=== PATIENT | male | born 1955 | race Caucasian/White ===

== ENCOUNTER 2019-06-07 17:50 | Inpatient (IN) | payer MEDICARE, OTHER ==
[~2019-06-07] VITALS: Ht 182.9 cm; Wt 75.9 kg
[~2019-06-07 17:50] MED LIST: AMLODIPINE BESYL5 MG ORAL; ASPIRIN EC325 MG ORAL; ASPIRIN81 MG ORAL; CLOZAPINE50 MG PO; DEPAKOTE ER500 MG ORAL; DITROPAN10 MG ORAL; DIVALPROEX SOD500 M2 PO; DOCUSATE SODIU100 MG ORAL; DUONEB 0.5-3(2.53 ML HHN; FAMOTIDINE20 MG ORAL; HALDOL INJECT5 MG/ML IM; HEPARIN SO5000 UNIT2 SUBQ; LOPID600 MG ORAL; METOPROLOL SUCC50 MG ORAL; OMEPRAZOLE20 M2 ORAL; POTASSIUM CHLO20 ME1 ORAL; POTASSIUM CHLO20 ME2 ORAL; SIMVASTATIN20 MG ORAL; TAMSULOSIN HCL0.4 MG ORAL; TENORMIN25 MG ORAL
[2019-06-07 17:55] VITALS: BP 96/51
--- NOTE | 2019-06-07 17:55 | NUR ---
ED Nurse Note: Patient arrived by EMS from [facility] complaining of shortness of breath. Per EMS, patient is a chainsmoker and smoked 5 cigarettes today before complaining of shortness of breath. Nursing staff called 911. Upon arrival to ED, patient HR was in the 170s-180s. Patient converted to Sinus rhythm and HR is now stable between 100 and 110. SBP was mid 80's, fluid bolus given per ERMD. SBP now in mid 90's. Patient currently on 3 L NC, no complaints of shortness of breath. Patient resting comfortably.
[2019-06-07] MEDS ORDERED: Adenosine 6mg/2ml Inj ONE (18:00)
[2019-06-07] MEDS ORDERED: Isovue-370 150ml vial INJ PRN (18:15)
[2019-06-07 18:25] LABS: HEMATOCRIT 34.3 % (42.0-52.0); HEMOGLOBIN 11.9 G/DL (14.2-18.0); MEAN CORPUSCULAR VOLUME 91 FL (80-99); PLATELET COUNT 199 K/UL (150-450); RED BLOOD COUNT 3.77 M/UL (4.70-6.10); RED CELL DISTRIBUTION WIDTH 13.8 % (11.6-14.8)
[2019-06-07] MEDS: Levalbuterol Inh UD 1.25mg/0.5ml HHN SCH ×4 (18:35→18:51)
[2019-06-07] MEDS: Ipratropium 0.02% Inh Soln 2.5ml UD HHN SCH ×3 (18:35→18:48)
--- NOTE | 2019-06-07 18:40 | NUR ---
ED Nurse Note: Patient getting breathing treatment. Patient resting comfortably, no s/s of distress.
[2019-06-07 18:41] LABS: ANION GAP 8 mmol/L (5-15); BLOOD UREA NITROGEN 16 mg/dL (7-18); CALCIUM 8.9 MG/DL (8.5-10.1); CARBON DIOXIDE 25 MMOL/L (21-32); CHLORIDE 99 MMOL/L (98-107); CREATININE 1.8 MG/DL (0.55-1.30); POTASSIUM 4.5 MMOL/L (3.5-5.1); SODIUM 132 MMOL/L (136-145)
[2019-06-07 18:45] VITALS: BP 96/51
--- NOTE | 2019-06-07 18:48 | NUR ---
MARAL JANSEN (BROTHER) [phone]
[2019-06-07 18:52] LABS: ALANINE AMINOTRANSFERASE 8 U/L (12-78); ALBUMIN 2.1 G/DL (3.4-5.0); ALBUMIN/GLOBULIN RATIO 0.4 (1.0-2.7); ALKALINE PHOSPHATASE 93 U/L (46-116); ASPARTATE AMINO TRANSFERASE 11 U/L (15-37); BILIRUBIN,TOTAL 0.4 MG/DL (0.2-1.0)
[2019-06-07] MEDS ORDERED: Solu-MEDROL 125mg Inj IVP ONE (19:00)
[2019-06-07 19:05] VITALS: BP 93/52
--- NOTE | 2019-06-07 19:08 | NUR ---
ED Nurse Note: pt refused swab for CRE/VRE.
--- NOTE | 2019-06-07 19:10 | NUR ---
ED Nurse Note: spoke with RT and ERMD, additional order of breathing treatment will not be administered due to resolution of tachypnea and o2 sat level
--- NOTE | 2019-06-07 19:19 | NUR ---
HAND-OFF: Report given to Remedios. Endorced pending antibiotic and urine collection.
--- NOTE | 2019-06-07 19:20 | NUR ---
ED Nurse Note: pt sent to CT
--- NOTE | 2019-06-07 19:40 | NUR ---
ED Nurse Note: PT RETURNED FROM CT
[2019-06-07] MEDS ORDERED: Solu-MEDROL 125mg Inj ONE (19:43)
[2019-06-07 21:00] VITALS: BP 105/44
--- NOTE | 2019-06-07 21:00 | NUR ---
ED Nurse Note: pt completed medications and tolerated well. pt is currently in bed resting. no acute signs of distress noted. iv lines intact and patent.
--- NOTE | 2019-06-07 21:05 | NUR ---
ED Nurse Note: assisted pt to stand to utitlize urinal bottle. urine specimen collected and sent to lab.
--- NOTE | 2019-06-07 21:11 | Diagnostic Imaging Report ---
Indication: Chest and abdominal pain shortness of breath Technique: Continuous helical transaxial imaging of the chest, abdomen and pelvis was obtained from the thoracic inlet to the pubic symphysis. No IV contrast was administered. Coronal 2-D reformats were also obtained. Study obtained in a Siemens sensation [address] Total Dose length Product (DLP): [address] Dose Index Volume (CTDIvol): 14.6 mGy Comparison: None Findings: There is a focus of the airspace opacification in the left upper lobe probably due to pneumonia. There is moderate to severe chronic lung fibrosis with areas of honeycombing and reticular fibrosis involving the interlobular and and intralobular septa primarily at the periphery of the upper lobes and lower lobes bilaterally. There is evidence of traction bronchiectasis. Emphysema noted in the upper lobes with areas of ill-defined hyperlucency. No large bulla identified. There is no adenopathy. There is a minimal calcification of the aorta. No pleural or pericardial effusion identified. Evaluation of solid organs is limited on noncontrast imaging. There is a 4.2 cm fusiform aneurysm of the lower abdominal aorta demonstrated. The appendix is normal. There is no free fluid. There is a small left inguinal hernia containing fat. Gallbladder is unremarkable. There is moderate stool in the colon. Urinary bladder is unremarkable. Vacuum phenomena narrowing of the L5-S1 disc demonstrated. IMPRESSION: Airspace/consolidative opacity in the left upper lobe consistent with left upper lobe pneumonia. Extensive chronic lung disease characterized by pulmonary fibrosis and honeycombing as well as upper lobe emphysema. 4.2 cm fusiform aneurysm of the abdominal aorta. Moderate fecal retention. Normal appendix Hiatal hernia Small left inguinal hernia containing fat The CT scanner at [facility] is accredited by the [employer] and the scans are performed using dose optimization techniques as appropriate to a performed exam including Automatic Exposure control.
[2019-06-07 21:26] LABS: APPEARANCE,URINE CLEAR; BILIRUBIN, URINE NEGATIVE (NEGATIVE); COLOR,URINE PALE YELLOW; GLUCOSE, URINE (UA) NEGATIVE (NEGATIVE); KETONES,URINE NEGATIVE (NEGATIVE); LEUKOCYTE ESTERASE ,URINE NEGATIVE (NEGATIVE); NITRITE,URINE NEGATIVE (NEGATIVE); PH,URINE 7 (4.5-8.0); PROTEIN,URINE 2+ (NEGATIVE); UROBILINOGEN,URINE NORMAL MG/DL (0.0-1.0)
--- NOTE | 2019-06-07 22:18 | Emergency Room Report ---
History of Present Illness General Chief Complaint: Dyspnea/Respdistress Source: Patient, EMS Present Illness HPI 64-year-old male presents ED for evaluation. Brought in by EMS from [facility]. For shortness of breath which started today. History of COPD. On oxygen. Denies chest pain. Denies fevers or chills. Denies cough. No other aggravating relieving factors. 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 Hx Neurological Problems: No Hx Seizures: Yes Review of Systems All Other Systems: negative except mentioned in HPI Physical Exam Vital Signs Date Time Temp Pulse Resp B/P (MAP) Pulse Ox O2 Delivery O2 Flow Rate FiO2 06/07/19 17:49 106 30 86/53 (64) 100 Nasal Cannula 3.0 06/07/19 17:55 98.1 06/07/19 18:38 28 Sp02 EP Interpretation: reviewed, normal General Appearance: no apparent distress, alert, GCS 15, non-toxic, thin Head: normocephalic, atraumatic Eyes: bilateral eye normal inspection, bilateral eye PERRL ENT: hearing grossly normal, normal pharynx, no angioedema, normal voice Neck: full range of motion, supple/symm/no masses Respiratory: chest non-tender, crackles, speaking full sentences, wheezing Cardiovascular #1: regular rate, rhythm, no edema Cardiovascular #2: 2+ carotid (R), 2+ carotid (L), 2+ radial (R), 2+ radial (L) , 2+ dorsalis pedis (R), 2+ dorsalis pedis (L) Gastrointestinal: normal bowel sounds, non tender, soft, non-distended, no guarding, no rebound Rectal: deferred Genitourinary: normal inspection, no CVA tenderness Musculoskeletal: back normal, gait/station normal, normal range of motion, non- tender Neurologic: alert, oriented x3, responsive, motor strength/tone normal, sensory intact, speech normal Psychiatric: judgement/insight normal, memory normal, mood/affect normal, no suicidal/homicidal ideation Reflexes: 3+ bicep (R), 3+ bicep (L), 3+ tricep (R), 3+ tricep (L), 3+ knee (R) , 3+ knee (L) Skin: other - see nursing skin notes Lymphatic: no adenopathy Medical Decision Making Diagnostic Impression: Primary Impression: COPD (chronic obstructive pulmonary disease) Qualified Codes: J44.9 - Chronic obstructive pulmonary disease, unspecified Additional Impressions: SOB (shortness of breath) Renal insufficiency ER Course Hospital Course 64 yo M presents to ED c/o SOB. h/o COPD Differential diagnoses include: Pneumonia, CHF exacerbation, pneumothorax, fluid overload Clinical course Patient placed on stretcher. On manager monitoring with tachycardia. After initial history and physical, I ordered nebulizer treatments. I ordered labs, IV fluids, EKG, chest x-ray, blood cultures, UA. Labs - noted leukocytosis, hemoglobin/hematocrit stable, Cr 1.8, lactate okay, troponins negative ABG - no acidosis, no hypercapnia or hypoxia CXR - hyperinflated lungs. interstitial changes and L >> R infiltrate CT chest/abd/pelvis- shows previously noted aortic aneurysm. L >> R infiltrates increased from prior study given abx. given IVFs. Case discussed with Dr. Rangel and he agreed to the patient to his service for further care and support I feel this is a highly complex case requiring extensive working including EKG/ Rhythm strip, Xray/CT/US, Blood/urine lab work, repeat exams while in ED, and administration of strong opiates/narcotics for pain control, admission to hospital or close patient follow up. Diagnosis - COPD exacerbation, SOB, renal insufficiency Patient admitted to telemetry in serious condition Labs Test 06/07/19 17:55 06/07/19 18:03 06/07/19 18:10 06/07/19 21:08 White Blood Count 20.0 K/UL (4.8-10.8) Red Blood Count 3.77 M/UL (4.70-6.10) Hemoglobin 11.9 G/DL (14.2-18.0) Hematocrit 34.3 % (42.0-52.0) Mean Corpuscular Volume 91 FL (80-99) Mean Corpuscular Hemoglobin 31.6 PG (27.0-31.0) Mean Corpuscular Hemoglobin Concent 34.8 G/DL (32.0-36.0) Red Cell Distribution Width 13.8 % (11.6-14.8) Platelet Count 199 K/UL (150-450) Mean Platelet Volume 6.3 FL (6.5-10.1) Neutrophils (%) (Auto) % (45.0-75.0) Lymphocytes (%) (Auto) % (20.0-45.0) Monocytes (%) (Auto) % (1.0-10.0) Eosinophils (%) (Auto) % (0.0-3.0) Basophils (%) (Auto) % (0.0-2.0) Differential Total Cells Counted 100 Neutrophils % (Manual) 71 % (45-75) Lymphocytes % (Manual) 3 % (20-45) Monocytes % (Manual) 8 % (1-10) Eosinophils % (Manual) 0 % (0-3) Basophils % (Manual) 0 % (0-2) Band Neutrophils 18 % (0-8) Platelet Estimate Adequate Platelet Morphology Normal Red Blood Cell Morphology Normal Sodium Level 132 MMOL/L (136-145) Potassium Level 4.5 MMOL/L (3.5-5.1) Chloride Level 99 MMOL/L (98-107) Carbon Dioxide Level 25 MMOL/L (21-32) Anion Gap 8 mmol/L (5-15) Blood Urea Nitrogen 16 mg/dL (7-18) Creatinine 1.8 MG/DL (0.55-1.30) Estimat Glomerular Filtration Rate 38.1 mL/min (>60) Glucose Level 107 MG/DL (74-106) Calcium Level 8.9 MG/DL (8.5-10.1) Total Bilirubin 0.4 MG/DL (0.2-1.0) Aspartate Amino Transf (AST/SGOT) 11 U/L (15-37) Alanine Aminotransferase (ALT/SGPT) 8 U/L (12-78) Alkaline Phosphatase 93 U/L (46-116) Troponin I 0.000 ng/mL (0.000-0.056) Pro-B-Type Natriuretic Peptide 1062 pg/mL (0-125) Total Protein 7.6 G/DL (6.4-8.2) Albumin 2.1 G/DL (3.4-5.0) Globulin 5.5 g/dL Albumin/Globulin Ratio 0.4 (1.0-2.7) Arterial Blood pH 7.437 (7.350-7.450) Arterial Blood Partial Pressure CO2 27.8 mmHg (35.0-45.0) Arterial Blood Partial Pressure O2 82.6 mmHg (75.0-100.0) Arterial Blood HCO3 18.3 mmol/L (22.0-26.0) Arterial Blood Oxygen Saturation 96.0 % (95-100) Arterial Blood Base Excess -4.6 (-2-2) Vick Test Positive Lactic Acid Level 1.80 mmol/L (0.4-2.0) Urine Color Pale yellow Urine Appearance Clear Urine pH 7 (4.5-8.0) Urine Specific [place] 1.010 (1.005-1.035) Urine Protein 2+ (NEGATIVE) Urine Glucose (UA) Negative (NEGATIVE) Urine Ketones Negative (NEGATIVE) Urine Blood 3+ (NEGATIVE) Urine Nitrite Negative (NEGATIVE) Urine Bilirubin Negative (NEGATIVE) Urine Urobilinogen Normal MG/DL (0.0-1.0) Urine Leukocyte Esterase Negative (NEGATIVE) Urine RBC 2-4 /HPF (0 - 0) Urine WBC 0-2 /HPF (0 - 0) Urine Squamous Epithelial Cells None /LPF (NONE/OCC) Urine Bacteria None /HPF (NONE) EKG Diagnostic Results Rate: tachycardiac Rhythm: NSR ST Segments: no acute changes ASA given to the pt in ED: No Rhythm Strip Diag. Results EP Interpretation: yes Rhythm: NSR, no PVC's, no ectopy Chest X-Ray Diagnostic Results Chest X-Ray Diagnostic Results : Chest X-Ray Ordered: Yes # of Views/Limited/Complete: 1 View Indication: Shortness of Breath EP Interpretation: Yes Interpretation: no pneumothorax, other - consolidation on left, intersttial changes on right Impression: Other - COPD/PNA Electronically Signed by: Electronically signed by Dwight De Leon MD CT/MRI/US Diagnostic Results CT/MRI/US Diagnostic Results : Imaging Test Ordered: CT Chest/Abd/Pelvis Impression CT ABDOMEN & PELVIS Without Contrast: Evaluation is limited secondary to motion artifact. Infrarenal abdominal aortic aneurysm measuring 4.4 cm in maximum transverse dimensions. No definite CT evidence for surrounding hematoma to suggest aneurysm rupture. Small hiatal hernia. Evaluation of the stomach is limited secondary to poor distention. Some wall thickening of the stomach cannot be excluded. The intra-abdominal organs are otherwise grossly unremarkable for a noncontrast CT. The appendix is mildly prominent measuring up to [address] evidence for periappendiceal inflammatory changes. No evidence for bowel related inflammatory changes. No evidence for significant bowel loop dilation to suggest an obstructive process. Moderate to large amount of stool in the cecum, ascending, transverse, and descending colon. Small amount of nonspecific free fluid in the pelvis. No evidence for free intraperitoneal gas. Degenerative changes of the lumbar spine. Last Vital Signs Date Time Temp Pulse Resp B/P (MAP) Pulse Ox O2 Delivery O2 Flow Rate FiO2 06/07/19 21:00 98.2 84 22 105/44 98 Nasal Cannula 2.0 06/07/19 18:51 28 Status: improved Disposition: ADMITTED INPATIENT Condition: Serious Referrals: Mohinder Foster MD (PCP) Dwight De Leon MD Jun 07, 2019 22:18
--- NOTE | 2019-06-07 22:24 | NUR ---
ED Nurse Note: telephone report given to UNA Chacon for continuity of care.
--- NOTE | 2019-06-07 22:30 | NUR ---
TRANSFER TO FLOOR: Patient transferred to tele as ordered, per ermd . Report given to jyoti cee. Belongings sent with pt.
[2019-06-07 22:37] VITALS: BP 108/68
--- NOTE | 2019-06-07 22:37 | NUR ---
NURSE NOTES: Received patient from UNA Arnold. Patient transferred via gurney from ED to TELE without incident. Patient is awake and alert to person and place. Eyes opening spontaneously and it is noted that patient is able to make needs known. No known allergies and home medications confirmed with patient. Left FA 18g and Left AC 20g IV sites remain patent, intact and asymptomatic. Patient SR on tele monitor, and shows no signs of cardiac distress. Pt had episode of SVT in emergency department. Patient on 2L NC and current O2 sats range between 94-99% No use of accessory muscles noted, shallow respiratory pattern noted, though patient states work of breathing has eased. No central lines or angela catheter noted. Patient voids in to a urinal. Patient gait remains unsteady. Skin assessment performed, skin remains intact. 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 MRSA swabs pending. Fall, aspiration and seizure precautions observed. Bed in lowest position, brakes on, bed alarm on, side rails up x3 and padded per protocol, call light within reach. Will continue with plan of care. Will call for additional admission orders.
--- NOTE | 2019-06-07 23:00 | NUR ---
NURSE NOTES: Patient provided with a bed bath, linen change and oral care. Patient tolerated care well. Patient remains sleeping in bed; bed is in the lowest position, safety wheels engaged, bed alarm activated, side rails up x3 and padded per protocol, call light within reach. Will continue to monitor.
--- NOTE | 2019-06-07 23:29 | NUR ---
NURSE NOTES: Paged Dr George for Admission orders. Patient remains stable. Will continue to monitor.
--- NOTE | 2019-06-07 23:39 | NUR ---
NURSE NOTES: Admission orders obtained from Dr George as follows: Full code Diet: Regular DVT Prophylaxis: Heparin 5,000 u subcut Q 12 hours Start IV fluids 1/2 NS at 75mL/hr DuoNeb Q 6hrs PRN SOB Continue home medications Discussed episode of SVT with Dr George. No cario consult at this time. Will carry out orders. Will continue to monitor patient.
[2019-06-08] VITALS: BP 110/71
[2019-06-08] MEDS ORDERED: Albuterol/Ipratropium 3ml neb HHN PRN
--- NOTE | 2019-06-08 02:20 | NUR ---
NURSE NOTES: IV fluids initiated as ordered. No adverse effects noted. Patient continues to show oxygen saturations of 95-97% on 2L NC. No signs of cardiac distress noted. Will continue to monitor.
[2019-06-08 04:00] VITALS: BP 115/72
--- NOTE | 2019-06-08 07:10 | NUR ---
HAND-OFF: Report given to UNA Valle. Patient remains free from signs of cardiopulmonary distress. Bed in lowest position, brakes on, bed alarm activated, side rails up x2, and call light within reach.
--- NOTE | 2019-06-08 07:24 | NUR ---
NURSE NOTES: Received report from UNA Bashir. Pt in bed, asleep, respiration regular and unlabored, room clean and clear of clutter, IV fluid running according to order, bed in lowest position, call light within reach, bed alarm on, board updated.
[2019-06-08 07:25] LABS: HEMATOCRIT 33.5 % (42.0-52.0); MEAN CORPUSCULAR VOLUME 94 FL (80-99); PLATELET COUNT 214 K/UL (150-450); RED BLOOD COUNT 3.55 M/UL (4.70-6.10); RED CELL DISTRIBUTION WIDTH 15.3 % (11.6-14.8); WHITE BLOOD COUNT 18.5 K/UL (4.8-10.8)
[2019-06-08 08:00] VITALS: BP 92/58
[2019-06-08] MEDS: Aspirin Baby 81mg ORAL SCH (08:59)
[2019-06-08] MEDS: Depakote 500mg tab ORAL SCH ×2 (08:59→21:19)
[2019-06-08] MEDS: Docusate 100mg cap ORAL SCH ×2 (09:00→17:59)
[2019-06-08] MEDS ORDERED: Metoprolol Succinate XL 50mg tab ORAL SCH (09:00)
[2019-06-08] MEDS: Heparin 5000 units/ml inj SUBQ SCH ×2 (09:05→21:24)
--- NOTE | 2019-06-08 10:20 | NUR ---
NURSE NOTES: Paged Dr. Foster regarding low BP and request for Nicotine patch as pt is a daily smoker. BP trends low this am, all BP meds held Addendum: 06/08/19 at 1150 by JACKIE COVARRUBIAS RN NURSE NOTES: Paged Dr. Foster again as pt's BP is 90/50 hr 66
--- NOTE | 2019-06-08 11:25 | NUR ---
CASE MANAGEMENT: INITIAL REVIEW 64 YR OLD MALE FROM [facility] CC: DYSPNEA /RESP DISTRESS SI: COPD. RENAL INSUFFICIENCY 98.1 93 26 96/51 100% ON 3L NC WBC 20.0 NA+ 132 BNP 1062 IS: IVF NS BOLUS X3 ATROVENT HHN X1 XOPENEX HHN X1 IV SOLUMEDROL X1 IV LEVAQUIN X1 2E TELE UNIT DCP: RETURN TO [facility] WHEN MEDICALLY CLEAR
--- NOTE | 2019-06-08 11:37 | Diagnostic Imaging Report ---
Indication: Dyspnea Comparison: 08/23/2018 A single view chest radiograph was obtained. Findings: There is extensive bilateral upper lobe fibrosis. There is an area of abnormal asymmetric opacification in the left upper lobe adjacent to an area of pleural thickening. Findings suspicious for pneumonia. Should also consider the possibility of malignancy accounting for this. Heart size is stable. IMPRESSION: Left upper lobe pneumonia versus tumor. Pulmonary fibrosis
[2019-06-08 11:38] VITALS: BP 90/50
--- NOTE | 2019-06-08 15:50 | NUR ---
NURSE NOTES: BP 80/50 HR 62. Obtained Orthostatic BPs, sitting 81/50 HR 60, Standing 82/51 HR 86. RN notified Adela LOPES. RN discussed with Dr. Foster the BP has been steadily dropping despite increasing IV fluids, pt is asymptomatic. Dr. Foster stated "call me when it gets into the 50s"
[2019-06-08 16:00] VITALS: BP 90/50
--- NOTE | 2019-06-08 16:28 | Consultation ---
Consult Note Consult Note PULMONARY CONSULTATION CONSULTING PHYSICIAN: James Morrison M.D. REASON FOR CONSULTATION: Shortness of breath. 63-year-old male, resides at a [facility], transferred with worsening shortness of breath. The patient has had progressive decline overall with worsening shortness of breath and congestion. The patient continued to smoke and presented to the emergency room for pneumonia and COPD. The patient's care discussed and reviewed. The patient now admitted. The patient's findings all discussed. Care discussed and reviewed with the attending physician. 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 MEDICATIONS: Reviewed. ALLERGIES: Reviewed. SOCIAL HISTORY: Resides in a [facility], [place]. Continues to smoke two packs per day. REVIEW OF SYSTEMS: Difficult to obtain at present due to the patient's mental status. PHYSICAL EXAMINATION: GENERAL: A chronically ill-appearing male. HEENT: Negative. The patient's oropharynx is dry. NECK: Supple. LUNGS: With moderate breath sounds, focal rhonchi, and wheezes. CARDIAC: Normal S1, S2. Regular rate and rhythm without murmurs, rubs, or gallops. ABDOMEN: Soft, nontender, and nondistended. EXTREMITIES: No cyanosis, clubbing, or edema. NEUROLOGIC: Appears to be grossly nonfocal. LABORATORY AND DIAGNOSTIC DATA: Labs Test 06/07/19 17:55 06/07/19 18:03 06/07/19 18:10 06/07/19 21:08 White Blood Count 20.0 K/UL (4.8-10.8) Red Blood Count 3.77 M/UL (4.70-6.10) Hemoglobin 11.9 G/DL (14.2-18.0) Hematocrit 34.3 % (42.0-52.0) Mean Corpuscular Volume 91 FL (80-99) Mean Corpuscular Hemoglobin 31.6 PG (27.0-31.0) Mean Corpuscular Hemoglobin Concent 34.8 G/DL (32.0-36.0) Red Cell Distribution Width 13.8 % (11.6-14.8) Platelet Count 199 K/UL (150-450) Mean Platelet Volume 6.3 FL (6.5-10.1) Neutrophils (%) (Auto) % (45.0-75.0) Lymphocytes (%) (Auto) % (20.0-45.0) Monocytes (%) (Auto) % (1.0-10.0) Eosinophils (%) (Auto) % (0.0-3.0) Basophils (%) (Auto) % (0.0-2.0) Differential Total Cells Counted 100 Neutrophils % (Manual) 71 % (45-75) Lymphocytes % (Manual) 3 % (20-45) Monocytes % (Manual) 8 % (1-10) Eosinophils % (Manual) 0 % (0-3) Basophils % (Manual) 0 % (0-2) Band Neutrophils 18 % (0-8) Platelet Estimate Adequate Platelet Morphology Normal Red Blood Cell Morphology Normal Sodium Level 132 MMOL/L (136-145) Potassium Level 4.5 MMOL/L (3.5-5.1) Chloride Level 99 MMOL/L (98-107) Carbon Dioxide Level 25 MMOL/L (21-32) Anion Gap 8 mmol/L (5-15) Blood Urea Nitrogen 16 mg/dL (7-18) Creatinine 1.8 MG/DL (0.55-1.30) Estimat Glomerular Filtration Rate 38.1 mL/min (>60) Glucose Level 107 MG/DL (74-106) Calcium Level 8.9 MG/DL (8.5-10.1) Total Bilirubin 0.4 MG/DL (0.2-1.0) Aspartate Amino Transf (AST/SGOT) 11 U/L (15-37) Alanine Aminotransferase (ALT/SGPT) 8 U/L (12-78) Alkaline Phosphatase 93 U/L (46-116) Troponin I 0.000 ng/mL (0.000-0.056) Pro-B-Type Natriuretic Peptide 1062 pg/mL (0-125) Total Protein 7.6 G/DL (6.4-8.2) Albumin 2.1 G/DL (3.4-5.0) Globulin 5.5 g/dL Albumin/Globulin Ratio 0.4 (1.0-2.7) Arterial Blood pH 7.437 (7.350-7.450) Arterial Blood Partial Pressure CO2 27.8 mmHg (35.0-45.0) Arterial Blood Partial Pressure O2 82.6 mmHg (75.0-100.0) Arterial Blood HCO3 18.3 mmol/L (22.0-26.0) Arterial Blood Oxygen Saturation 96.0 % (95-100) Arterial Blood Base Excess -4.6 (-2-2) Vick Test Positive Lactic Acid Level 1.80 mmol/L (0.4-2.0) Urine Color Pale yellow Urine Appearance Clear Urine pH 7 (4.5-8.0) Urine Specific [place] 1.010 (1.005-1.035) Urine Protein 2+ (NEGATIVE) Urine Glucose (UA) Negative (NEGATIVE) Urine Ketones Negative (NEGATIVE) Urine Blood 3+ (NEGATIVE) Urine Nitrite Negative (NEGATIVE) Urine Bilirubin Negative (NEGATIVE) Urine Urobilinogen Normal MG/DL (0.0-1.0) Urine Leukocyte Esterase Negative (NEGATIVE) Urine RBC 2-4 /HPF (0 - 0) Urine WBC 0-2 /HPF (0 - 0) Urine Squamous Epithelial Cells None /LPF (NONE/OCC) Urine Bacteria None /HPF (NONE) Test 06/08/19 05:34 White Blood Count 18.5 K/UL (4.8-10.8) Red Blood Count 3.55 M/UL (4.70-6.10) Hemoglobin 11.0 G/DL (14.2-18.0) Hematocrit 33.5 % (42.0-52.0) Mean Corpuscular Volume 94 FL (80-99) Mean Corpuscular Hemoglobin 31.0 PG (27.0-31.0) Mean Corpuscular Hemoglobin Concent 32.9 G/DL (32.0-36.0) Red Cell Distribution Width 15.3 % (11.6-14.8) Platelet Count 214 K/UL (150-450) Mean Platelet Volume 5.8 FL (6.5-10.1) Neutrophils (%) (Auto) % (45.0-75.0) Lymphocytes (%) (Auto) % (20.0-45.0) Monocytes (%) (Auto) % (1.0-10.0) Eosinophils (%) (Auto) % (0.0-3.0) Basophils (%) (Auto) % (0.0-2.0) Differential Total Cells Counted 100 Neutrophils % (Manual) 93 % (45-75) Lymphocytes % (Manual) 5 % (20-45) Monocytes % (Manual) 2 % (1-10) Eosinophils % (Manual) 0 % (0-3) Basophils % (Manual) 0 % (0-2) Band Neutrophils 0 % (0-8) Platelet Estimate Adequate Platelet Morphology Normal Hypochromasia 1+ Magnesium Level 2.1 MG/DL (1.8-2.4) Pro-B-Type Natriuretic Peptide 2123 pg/mL (0-125) IMPRESSION: 1. Evidence of pneumonia acute 2. Nicotine dependence. 3. Anemia. 4. Psychosis. 5. Psychiatric disorder. 6. Severe protein-calorie malnutrition. 7. Pulmonary fibrosis. PLAN respiratory care antibiotics CT chest reviewed smoking cessation DVT prophylaxis oxygen therapy impression, plan, and exam edited and reviewed in detail care discussed with James Fontaine MD Jun 08, 2019 16:28
[2019-06-08] MEDS: cefTRIAXone 1 GM in D5W 55 ML IVPB SCH (18:05)
[2019-06-08] MEDS: dilTIAZem HCl 30mg tab ORAL SCH ×2 (18:15→21:20)
--- NOTE | 2019-06-08 18:15 | Cardiology Progress Note ---
Subjective Subjective [id number] Objective Last 24 Hour Vital Signs Date Time Temp Pulse Resp B/P (MAP) Pulse Ox O2 Delivery O2 Flow Rate FiO2 06/08/19 16:10 62 60 86 06/08/19 16:00 97.3 62 20 90/50 (63) 82 06/08/19 11:38 97.3 66 18 90/50 (63) 100 06/08/19 11:31 69 06/08/19 09:59 78 22 94 Nasal Cannula 2.0 28 73 24 91 06/08/19 09:00 71 92/58 06/08/19 09:00 71 92/58 06/08/19 08:04 Nasal Cannula 2.0 06/08/19 08:00 97.0 71 20 92/58 (69) 96 06/08/19 07:39 78 06/08/19 06:43 66 18 97 Nasal Cannula 2.0 28 06/08/19 06:43 97 Nasal Cannula 2.0 28 06/08/19 04:17 63 06/08/19 04:00 98.1 87 22 115/72 (86) 97 06/08/19 00:00 98.0 88 22 110/71 (84) 96 06/07/19 22:59 Nasal Cannula 2.0 06/07/19 22:48 88 06/07/19 22:40 Nasal Cannula 2.0 06/07/19 22:37 98.4 86 24 108/68 (81) 98 06/07/19 22:35 97.6 72 23 95/51 96 Nasal Cannula 2.0 06/07/19 21:00 98.2 84 22 105/44 98 Nasal Cannula 2.0 06/07/19 19:05 98.3 97 23 93/52 96 Nasal Cannula 2.0 06/07/19 18:51 98 20 99 Nasal Cannula 2.0 28 96 28 99 06/07/19 18:45 98.0 93 26 96/51 100 Nasal Cannula 2.0 28 06/07/19 18:44 96 20 99 Nasal Cannula 2.0 28 96 22 99 06/07/19 18:38 93 20 99 Nasal Cannula 2.0 28 94 25 99 06/07/19 18:38 94 25 99 Nasal Cannula 2.0 28 Intake and Output 06/07/19 06/08/19 19:00 07:00 Intake Total 0 ml 2315 ml Output Total 800 ml Balance 0 ml 1515 ml Intake Oral 0 ml 240 ml IV Total 2075 ml Output Urine Total 800 ml # Voids 3 # Bowel Movements 1 Laboratory Tests Test 06/07/19 21:08 06/08/19 05:34 Urine Color Pale yellow Urine Appearance Clear Urine pH 7 (4.5-8.0) Urine Specific [place] 1.010 (1.005-1.035) Urine Protein 2+ (NEGATIVE) H Urine Glucose (UA) Negative (NEGATIVE) Urine Ketones Negative (NEGATIVE) Urine Blood 3+ (NEGATIVE) H Urine Nitrite Negative (NEGATIVE) Urine Bilirubin Negative (NEGATIVE) Urine Urobilinogen Normal MG/DL (0.0-1.0) Urine Leukocyte Esterase Negative (NEGATIVE) Urine RBC 2-4 /HPF (0 - 0) H Urine WBC 0-2 /HPF (0 - 0) Urine Squamous Epithelial Cells None /LPF (NONE/OCC) Urine Bacteria None /HPF (NONE) White Blood Count 18.5 K/UL (4.8-10.8) H Red Blood Count 3.55 M/UL (4.70-6.10) L Hemoglobin 11.0 G/DL (14.2-18.0) L Hematocrit 33.5 % (42.0-52.0) L Mean Corpuscular Volume 94 FL (80-99) Mean Corpuscular Hemoglobin 31.0 PG (27.0-31.0) Mean Corpuscular Hemoglobin Concent 32.9 G/DL (32.0-36.0) Red Cell Distribution Width 15.3 % (11.6-14.8) H Platelet Count 214 K/UL (150-450) Mean Platelet Volume 5.8 FL (6.5-10.1) L Neutrophils (%) (Auto) % (45.0-75.0) Lymphocytes (%) (Auto) % (20.0-45.0) Monocytes (%) (Auto) % (1.0-10.0) Eosinophils (%) (Auto) % (0.0-3.0) Basophils (%) (Auto) % (0.0-2.0) Differential Total Cells Counted 100 Neutrophils % (Manual) 93 % (45-75) H Lymphocytes % (Manual) 5 % (20-45) L Monocytes % (Manual) 2 % (1-10) Eosinophils % (Manual) 0 % (0-3) Basophils % (Manual) 0 % (0-2) Band Neutrophils 0 % (0-8) Platelet Estimate Adequate Platelet Morphology Normal Hypochromasia 1+ Magnesium Level 2.1 MG/DL (1.8-2.4) Pro-B-Type Natriuretic Peptide 2123 pg/mL (0-125) H Pepper Butcher MD Jun 08, 2019 18:15
--- NOTE | 2019-06-08 19:15 | NUR ---
HAND-OFF: Report given to UNA Lala.
--- NOTE | 2019-06-08 19:30 | NUR ---
NURSE NOTES: Received report from UNA Valle. Patient is in bed, awake and responsive. Breathing regular and unlabored with no SOB noted at this time. Patient denies any pain or discomfort at this time. Bed is in lowest position, breaks engaged, bed-alarm on, and call light is within reach at all times. IV is intact, running fluids at prescribed rate. Will continue to monitor.
[2019-06-08 20:00] VITALS: BP 85/55
--- NOTE | 2019-06-08 20:15 | History and Physical Report ---
DATE OF ADMISSION: 06/07/2019 CHIEF COMPLAINT: Dyspnea and failure to thrive. HISTORY OF PRESENT ILLNESS: This is [place] 64[place]year[place] [facility] [place] brought in by EMS from [facility] with failure to thrive and shortness of breath. The patient has a history of lung cancer. [facility] and was discharged to a [facility] about a year ago. The patient has been declining gradually. The patient continues to smoke despite counseling. The patient has been receiving immunotherapy at [facility] before. He has been noncompliant. He has lost significant amount of weight. I have not seen the patient for about three months. The patient escaped my routine visits to the [facility] for some reason. PAST MEDICAL HISTORY: 1. History of lung CA status post immunotherapy. 2. Chronic obstructive pulmonary disease. 3. Seizure disorder. 4. History of abdominal aortic aneurysm. 5. 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 MEDICATIONS: Baby aspirin, clozapine, Depakote, Atrovent, Xopenex, Toprol-XL, and tamsulosin. ALLERGIES: No known drug allergies. FAMILY HISTORY: Difficult to obtain. The patient is confused. SOCIAL HISTORY: Difficult to obtain. The patient is confused. REVIEW OF SYSTEMS: Difficult to obtain. The patient is confused. PHYSICAL EXAMINATION: GENERAL: This is an elderly cachectic disheveled male, who is in no acute distress. VITAL SIGNS: Blood pressure 90/50, pulse 66 irregular, respirations 18, and temperature 97.3. HEENT: The head is normocephalic and atraumatic. Pupils are equal, round, and reactive to light and accommodation consensually. NECK: Supple. Trachea midline. There was no lymphadenopathy or thyromegaly. LUNGS: Bilateral wheezes and rhonchi. HEART: Regular rate and rhythm without rubs, murmurs, or gallops. ABDOMEN: Soft and nontender. Bowel sounds were active. EXTREMITIES: No clubbing, cyanosis, or edema. NEUROLOGICAL: He is alert and oriented x4. Cranial nerves II through XII intact. LABORATORY AND ANCILLARY DATA: CBC on admission 20,000 and hematocrit 34.3. Chemistry, sodium 132, otherwise within normal limits. Creatinine 1.8. Magnesium today 2.1. Lactic acid 1.8. IMAGING REPORTS: CT scan of the abdomen and pelvis showed yesterday airspace consolidative opacity in the left upper lobe consistent with left upper lobe pneumonia, extensive chronic lung disease consistent with pulmonary fibrosis and honeycombing, upper lobe emphysema, a 4.2 cm fusiform aneurysm of the abdominal aorta, moderate fecal retention hiatal hernia, and small left inguinal hernia. ASSESSMENT: 1. Left-sided pneumonia. 2. Septic shock due to the above. 3. History of lung CA status post immunotherapy. 4. Chronic obstructive pulmonary disease. 5. Seizure disorder. 6. History of abdominal aortic aneurysm. 7. 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 PLAN: 1. IV fluid rehydration. 2. Intravenous antibiotics. 3. ID and Pulmonary consults. 4. Psychiatry consult. Mohinder Foster M.D. DR: GUILLERMINA JOB#: [id number] CC:
[2019-06-08] MEDS: Tamsulosin 0.4mg cap ORAL SCH (21:20)
--- NOTE | 2019-06-08 21:30 | NUR ---
NURSE NOTES: Upon assessment of patient's VS, patient's B/P is 85/55. It was re-checked x3 and it is still running in the 80's. Patient is awake and responsive, remains asymptomatic. Patient denies any dizziness at this time. Informed from previous shift's RN that was notified of patient's vitals and informed the RN to call back if the patient's BP is in the 50's. Notified MARIANNE Manuel of the patient's VS. Will continue to monitor and assess the patient.
--- NOTE | 2019-06-08 22:15 | Consultation ---
DATE OF CONSULTATION: 06/08/2019 CARDIOLOGY CONSULTATION CONSULTING PHYSICIAN: Pepper Butcher M.D. REFERRING PHYSICIAN: Mohinder Foster M.D. REASON FOR EVALUATION: SVT. HISTORY OF PRESENT ILLNESS: The patient was brought yesterday to the emergency department. According to the patient, he came because he was very weak and could not breathe. According to the patient and the chart, he was progressively weak, declining, could get out of chair, could not ambulate even with a walker, and was just about to fall. He also was bringing a lot of phlegm. The patient is a heavy smoker for many years. He had dyspnea with exertion. He denies any chest pain. While in the hospital, he had episode of SVT and cardiac consultation was requested. PAST MEDICAL HISTORY: Also significant for psychiatric disorder, possible dementia, history of left lung tumor treated with immunotherapy, history of benign prostatic hypertrophy, hypertension, and abdominal aortic aneurysm. MEDICATIONS: His medications prior to admission include amlodipine, aspirin, clozapine, valproic acid, Colace, famotidine, inhalers, metoprolol, potassium, and Flomax. ALLERGIES: None reported. HABITS: As I mentioned, heavy smoker. No alcohol or drug abuse. SOCIAL HISTORY: He is dependent and lives in board and care because he has mental illness for many years. REVIEW OF SYSTEMS: Weight loss and cough. No hemoptysis. No syncope, but presyncope and weakness. No history of cardiac disease according to the patient and to the chart. PHYSICAL EXAMINATION: GENERAL: This is an ill-appearing gentleman lying in bed. VITAL SIGNS: His blood pressure is 90/50, his heart rate is 60, oxygen saturation on 3 L is 91%, his heart rate is 60 beats per minute at the present time, and he is not febrile. HEENT: He has palpebral droop on the left eye. PERRLA. EOMI. NECK: Neck veins are not distended. Palpable carotid upstroke without bruit. No masses in the neck. LUNGS: There are scattered rhonchi. Severely decreased breath sounds on the left side. HEART: Distant. Diminished S1, positive S4, otherwise unremarkable. ABDOMEN: Soft. No masses palpable. Bowel sounds are present. No rebound. No guarding. EXTREMITIES: Lower extremities thin, muscle wasting, and distal pulses very diminished. LABORATORY AND DIAGNOSTIC DATA: His EKG reveals sinus rhythm with S in II, III, and vertical axis and right bundle-branch block incomplete. There is also tracing with heart rate of 170 beats per minute with a narrow QRS, appears to be atrial flutter 2:1; difficult to say, but looks like atrial flutter. I do not see any starting or finishing point of this arrhythmia. There is also significant ST depression in precordial leads in V2, V3, V4, V5 during this SVT, which is not present at the baseline. His chest x-ray is significant for possible pneumonia on the left side. His labs are all reviewed. He has elevated white count. His creatinine is 1.8. Troponin was 0.00 and proBNP level 2123. White count is 18, hemoglobin 11, and platelets 214,000. CAT scan also noted. IMPRESSION AND RECOMMENDATION: Episode of SVT, looks like atrial flutter 2:1. The patient at that time was getting bronchodilators. I would suggest to stay away if possible from them or be very careful with the dose. Also, he will use metoprolol, but I am concerned about having the patient with COPD on beta-blockers, so I am going to give him diltiazem instead and discontinue amlodipine. His blood pressure is on the low side, so we are going to put holding parameters for that. I am going to continue checking troponin and to do echo. I am concerned about this gentleman's EKG changes. During SVT, he had significant ST depression; however, his heart rate was extremely fast, so that might be the reason why he had ischemic changes on his EKG and it is not necessary coronary artery disease. Rather, it is possibly demand ischemia, but that will be shown by his troponin level and hopefully by echocardiogram whether he has any wall motion abnormalities. Thank you for your consultation. Pepper Butcher M.D. DR: Caesar JOB#: [id number] CC:
[2019-06-09] VITALS: BP 99/68
--- NOTE | 2019-06-09 00:45 | NUR ---
NURSE NOTES: Upon assessment of patient's vitals, patient's BP remained 88/85. Assisted patient to the side of the bed and re-checked B/P and it was 99/68. Patient remains asymptomatic. Denies any dizziness at this time. Patient is in stable condition, resting comfortably. Will continue to monitor.
[2019-06-09 04:00] VITALS: BP 88/59
--- NOTE | 2019-06-09 04:45 | NUR ---
NURSE NOTES: Upon assessment of patient's vitals, the B/P is still in the 80's, BP reading of 88/59. Patient remains asymptomatic with no discomfort or dizziness noted. Fluids are running at prescribed rate. Patient is resting at the moment. Will continue to monitor.
[2019-06-09] MEDS: dilTIAZem HCl 30mg tab ORAL SCH ×3 (05:38→21:56)
--- NOTE | 2019-06-09 07:30 | NUR ---
HAND-OFF: Report given to UNA Abreu. Patient in stable condition, plan of care endorsed.
--- NOTE | 2019-06-09 08:07 | NUR ---
NURSE NOTES: Received report from UNA Mcpherson. Patient eating breakfast at time of bedside assessment. Denies any pain. No sign of respiratory or cardiac distress. Bed in lowest, locked position and call escobar and urinal in reach. Cont'd with plan of care.
[2019-06-09 08:19] VITALS: BP 92/56
--- NOTE | 2019-06-09 08:23 | Pulmonology Progress Note ---
Assessment/Plan Assessment/Plan IMPRESSION: 1. Evidence of pneumonia acute 2. Nicotine dependence. 3. Anemia. 4. Psychosis. 5. Psychiatric disorder. 6. Severe protein-calorie malnutrition. 7. Pulmonary fibrosis. PLAN respiratory care as is antibiotics noted cards noted CT chest reviewed smoking cessation DVT prophylaxis oxygen therapy and taper impression, plan, and exam edited and reviewed in detail care discussed with RN Subjective Allergies: Coded Allergies: No Known Allergies (Unverified , 04/25/13) Subjective care noted and reviewed mild congestion Objective Last 24 Hour Vital Signs Date Time Temp Pulse Resp B/P (MAP) Pulse Ox O2 Delivery O2 Flow Rate FiO2 06/09/19 08:19 97.2 69 18 92/56 (68) 96 06/09/19 05:38 73 88/59 06/09/19 04:00 70 06/09/19 04:00 97.4 73 18 88/59 (69) 99 06/09/19 00:00 98.1 70 18 99/68 (78) 98 06/09/19 00:00 68 06/08/19 21:20 68 85/50 06/08/19 21:14 96 Nasal Cannula 2.0 28 06/08/19 21:14 71 16 96 Nasal Cannula 2.0 28 06/08/19 21:00 Nasal Cannula 2.0 06/08/19 20:00 98.2 68 18 85/55 (65) 98 06/08/19 20:00 71 06/08/19 18:15 60 81/50 06/08/19 16:10 62 60 86 06/08/19 16:00 97.3 62 20 90/50 (63) 82 06/08/19 15:31 67 06/08/19 11:38 97.3 66 18 90/50 (63) 100 06/08/19 11:31 69 06/08/19 09:59 78 22 94 Nasal Cannula 2.0 28 73 24 91 06/08/19 09:00 71 92/58 06/08/19 09:00 71 92/58 Intake and Output 06/08/19 06/09/19 19:00 07:00 Intake Total 1270 ml 1180 ml Output Total 850 ml 600 ml Balance 420 ml 580 ml Intake Oral 600 ml 360 ml IV Total 670 ml 820 ml Output Urine Total 850 ml 600 ml # Voids 5 Objective WDWN NAD reduced breath sounds bilaterally with crackles and some rhonchi [id number] without MRG NABS nontender no HSM no CCE nonfocal Microbiology Date/Time Source Procedure Growth Status 06/07/19 18:10 Blood Blood Culture - Preliminary NO GROWTH AFTER 24 HOURS Resulted 06/07/19 17:55 Blood Blood Culture - Preliminary NO GROWTH AFTER 24 HOURS Resulted Laboratory Tests 06/08/19 19:55: Troponin I 0.000 06/09/19 04:10: Troponin I 0.000 Current Medications Medications (Trade) Dose Ordered Sig/Carlito Route PRN Reason Start Time Stop Time Status Last Admin Dose Admin Albuterol/ Ipratropium (Albuterol/ Ipratropium) 3 ml Q6HRT PRN HHN Shortness of Breath 06/08/19 00:00 06/13/19 00:00 06/08/19 09:50 Aspirin (ASA) 81 mg DAILY ORAL 06/08/19 09:00 07/08/19 08:59 06/08/19 08:59 Ceftriaxone Sodium 1 gm/ Dextrose 55 ml @ 110 mls/hr Q24H IVPB 06/08/19 18:00 06/15/19 17:59 06/08/19 18:05 Clozapine (Clozaril) 200 mg QHS ORAL 06/08/19 21:00 06/15/19 20:59 06/08/19 21:20 Diltiazem HCl (Cardizem) 30 mg EVERY 8 HOURS ORAL 06/08/19 18:15 07/08/19 18:14 Divalproex Sodium (Depakote) 500 mg EVERY 12 HOURS ORAL 06/08/19 09:00 07/08/19 08:59 06/08/19 21:19 Docusate Sodium (Colace) 100 mg TWICE A DAY ORAL 06/08/19 09:00 07/08/19 08:59 06/08/19 17:59 Heparin Sodium (Porcine) (Heparin 5000 units/ml) 5,000 units EVERY 12 HOURS SUBQ 06/08/19 09:00 07/08/19 08:59 06/08/19 21:24 Levofloxacin (Levaquin) 250 mg DAILY ORAL 06/09/19 09:00 06/16/19 08:59 Nicotine (Nicoderm) 1 patch Q24H TDERMAL 06/08/19 13:30 07/08/19 13:29 06/08/19 13:08 Sodium Chloride 1,000 ml @ 110 mls/hr Q9H6M IV 06/08/19 12:42 07/08/19 12:41 06/09/19 06:49 Tamsulosin HCl (Flomax) 0.4 mg BEDTIME ORAL 06/08/19 21:00 07/08/19 20:59 06/08/19 21:20 James Morrison MD Jun 09, 2019 08:22
--- NOTE | 2019-06-09 08:58 | NUR ---
RADIOLOGY DEPT., CHEST X-RAY DONE.-P.DYE
[2019-06-09] MEDS ORDERED: Levofloxacin 500mg tab ORAL SCH (09:00)
[2019-06-09] MEDS: Guaifenesin/DM 10ml syrup ORAL PRN ×2 (10:41→18:50)
[2019-06-09] MEDS: Depakote 500mg tab ORAL SCH ×2 (10:41→21:56)
[2019-06-09] MEDS: Aspirin Baby 81mg ORAL SCH (10:41)
[2019-06-09] MEDS: Docusate 100mg cap ORAL SCH ×2 (10:42→15:37)
[2019-06-09] MEDS: Heparin 5000 units/ml inj SUBQ SCH ×2 (10:44→22:00)
[2019-06-09 12:00] VITALS: BP 93/52
--- NOTE | 2019-06-09 12:41 | Diagnostic Imaging Report ---
Indication: Dyspnea Comparison: 06/07/2019 A single view chest radiograph was obtained. Findings: Abnormal pleural-based density noted focally in the left upper lobe with adjacent area of consolidation versus mass. Diffuse reticular densities consistent with pulmonary fibrosis demonstrated bilaterally. Heart size is stable. IMPRESSION: No radiographic change advisor the last 2 days
--- NOTE | 2019-06-09 12:57 | NUR ---
CASE MANAGEMENT: REVIEW 06/09/19 SI: COPD. RENAL INSUFFICIENCY 98.1 93 26 96/51 100% ON 3L NC IS: IVF NS @110ML/HR IV CEFTRIAXONE Q24HR LEVAQUIN PO QD HEPARIN SQ Q12HR ALBUTEROL HHN Q6/PRN ASA PO QD 2E TELE UNIT DCP: RETURN TO [facility] WHEN MEDICALLY CLEAR
--- NOTE | 2019-06-09 13:05 | CDS Physician Query ---
Clarification is required for compliance, coding accuracy, and to reflect severity of illness for this patient Dear James Bruce MD Date: 06/09/2019 CDS: Trung Chang [place] 64[place] [facility] [place] in by EMS from [facility] with failure to thrive and shortness of breath. The patient has a history of lung cancer. He has been in the longterm facility before and was discharged to a [facility] about a year ago. The patient has been declining gradually. The patient continues to smoke despite counseling. The patient has been receiving immunotherapy at [facility] before. He has been noncompliant. He has lost significant amount of weight. I have not seen the patient for about three months. The patient escaped my routine visits to the [facility] for some reason. IMPRESSION: 1. Evidence of pneumonia acute 2.Severe protein-calorie malnutrition. WBC: 20.0--->18.5 Tx: IV LEVOFLOXACINE; IV CEFTRIAXONE According to the clinical indications above, please indicate below the condition PHYSICIAN RESPONSE: Sepsis SIRS SIRS with organ dysfunction Septic Shock Not applicable x Other: Present on Admission: Yes x No Clinically Undetermined Physician signature Date Please also document in your Progress Notes and/or Discharge Summary and indicate if the condition was present on admission. MTDD
--- NOTE | 2019-06-09 14:22 | General Progress Note ---
Assessment/Plan Assessment/Plan: 1. Emerging from septic shock due to #2. 2. LL Pneumonia. 3. Lung CA. Under control post immuno Rx. 4. Extensive Lung Emphysema. 5. Cachexia. 6. Fusiform Infrarenal AAA. Aortic diameter unchanged 4.2 cm. 7. h/o Aortitis. Subjective Allergies: Coded Allergies: No Known Allergies (Unverified , 04/25/13) Subjective Less SOB less cough. Objective Last 24 Hour Vital Signs Date Time Temp Pulse Resp B/P (MAP) Pulse Ox O2 Delivery O2 Flow Rate FiO2 06/09/19 13:44 67 93/52 06/09/19 12:00 97.5 68 20 93/52 (66) 97 06/09/19 12:00 67 06/09/19 11:25 92 06/09/19 08:55 Nasal Cannula 2.0 Nasal Cannula 2.0 06/09/19 08:19 97.2 69 18 92/56 (68) 96 06/09/19 08:00 70 06/09/19 07:53 98 Nasal Cannula 2.0 28 06/09/19 07:53 69 18 98 Nasal Cannula 2.0 28 06/09/19 05:38 73 88/59 06/09/19 04:00 70 06/09/19 04:00 97.4 73 18 88/59 (69) 99 06/09/19 00:00 98.1 70 18 99/68 (78) 98 06/09/19 00:00 68 06/08/19 21:20 68 85/50 06/08/19 21:14 96 Nasal Cannula 2.0 28 06/08/19 21:14 71 16 96 Nasal Cannula 2.0 28 06/08/19 21:00 Nasal Cannula 2.0 06/08/19 20:00 98.2 68 18 85/55 (65) 98 06/08/19 20:00 71 06/08/19 18:15 60 81/50 06/08/19 16:10 62 60 86 06/08/19 16:00 97.3 62 20 90/50 (63) 82 06/08/19 15:31 67 Intake and Output 06/08/19 06/09/19 19:00 07:00 Intake Total 1270 ml 1180 ml Output Total 850 ml 600 ml Balance 420 ml 580 ml Intake Oral 600 ml 360 ml IV Total 670 ml 820 ml Output Urine Total 850 ml 600 ml # Voids 5 Laboratory Tests 06/08/19 19:55: Troponin I 0.000 06/09/19 04:10: Troponin I 0.000 06/09/19 12:10: Troponin I 0.000 06/09/19 13:36: Urine Legionella Antigen [Pending] Height (Feet): 6 Height (Inches): 0.00 Weight (Pounds): 167 Objective Cachechtic. CV RR Lungs B Ronchi Abd SNT. BS + E No edema ++ Clubbing Mohinder Foster MD Jun 09, 2019 14:22
[2019-06-09 16:00] VITALS: BP 110/61
[2019-06-09] MEDS: cefTRIAXone 1 GM in D5W 55 ML IVPB SCH (18:00)
--- NOTE | 2019-06-09 18:25 | Cardiology Progress Note ---
Assessment/Plan Assessment/Plan will follow echo, his BP is slightly better today Subjective Subjective The patient was seen in the morning. He is doing the same, no episodes of tachycardia. his respiratory symptoms unchanged. denies chest pain, no orthopnea Objective Last 24 Hour Vital Signs Date Time Temp Pulse Resp B/P (MAP) Pulse Ox O2 Delivery O2 Flow Rate FiO2 06/09/19 16:00 97.5 70 18 110/61 (77) 96 06/09/19 16:00 74 06/09/19 13:44 67 93/52 06/09/19 12:00 97.5 68 20 93/52 (66) 97 06/09/19 12:00 67 06/09/19 11:25 92 06/09/19 08:55 Nasal Cannula 2.0 Nasal Cannula 2.0 06/09/19 08:19 97.2 69 18 92/56 (68) 96 06/09/19 08:00 70 06/09/19 07:53 98 Nasal Cannula 2.0 28 06/09/19 07:53 69 18 98 Nasal Cannula 2.0 28 06/09/19 05:38 73 88/59 06/09/19 04:00 70 06/09/19 04:00 97.4 73 18 88/59 (69) 99 06/09/19 00:00 98.1 70 18 99/68 (78) 98 06/09/19 00:00 68 06/08/19 21:20 68 85/50 06/08/19 21:14 96 Nasal Cannula 2.0 28 06/08/19 21:14 71 16 96 Nasal Cannula 2.0 28 06/08/19 21:00 Nasal Cannula 2.0 06/08/19 20:00 98.2 68 18 85/55 (65) 98 06/08/19 20:00 71 General Appearance: thin, other - ill appearing Rhythm: NSR Cardiovascular: regular rhythm Respiratory/Chest: crackles/rales, rhonchi - bilaterally Abdomen: soft Intake and Output 06/08/19 06/09/19 19:00 07:00 Intake Total 1270 ml 1180 ml Output Total 850 ml 600 ml Balance 420 ml 580 ml Intake Oral 600 ml 360 ml IV Total 670 ml 820 ml Output Urine Total 850 ml 600 ml # Voids 5 Laboratory Tests Test 06/08/19 19:55 06/09/19 04:10 06/09/19 12:10 06/09/19 13:36 Troponin I 0.000 ng/mL (0.000-0.056) 0.000 ng/mL (0.000-0.056) 0.000 ng/mL (0.000-0.056) Urine Legionella Antigen Pending Microbiology Date/Time Source Procedure Growth Status 06/07/19 18:10 Blood Blood Culture - Preliminary NO GROWTH AFTER 24 HOURS Resulted 06/07/19 17:55 Blood Blood Culture - Preliminary NO GROWTH AFTER 24 HOURS Resulted Pepper Butcher MD Jun 09, 2019 18:25
--- NOTE | 2019-06-09 18:43 | NUR ---
NURSE NOTES: patient remains calm and cooperative. Multiple voids with urinal today (see flowsheet). IVF decreased from 110 ml/hr to 75ml/hr per MD order. Tolerated diet with no nvd--decreased appetite persisted. Skine 100% clean, dry and intact. No BM today.
--- NOTE | 2019-06-09 18:45 | Consultation ---
DATE OF CONSULTATION: 06/09/2019 INFECTIOUS DISEASE CONSULTATION This consult is for coverage of Dr. Huang. CONSULTING PHYSICIAN: Vincenzo Soto M.D. PRIMARY ATTENDING PHYSICIAN: Mohinder Foster M.D. REASON FOR CONSULT: Pneumonia, COPD. HISTORY OF PRESENT ILLNESS: This is a 64-year-old white male admitted on 06/07/2019 from a care home facility because of shortness of breath, progressive decline in respiratory function, and congestion. Also having weight loss. At the time of admission, he had leukocytosis of 20,000 and pulse of 106. The patient is a smoker. 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 ALLERGIES: No known drug allergies. MEDICATIONS: Getting Levaquin, Flomax, clozapine, Cardizem, ceftriaxone, nicotine patch, heparin, aspirin, Colace, Depakote, albuterol and ipratropium inhaler. SOCIAL HISTORY: intermediate resident. Single, has no child. Smoker. Denies alcohol and drug abuse. REVIEW OF SYSTEMS: No fever. No chills. Has productive cough for long time. He states that is improving after admission to the hospital. No nausea. No vomiting. No problem passing urine. PHYSICAL EXAMINATION: VITAL SIGNS: Temperature 97.2, pulse 69, and blood pressure 92/56. GENERAL APPEARANCE: No acute distress, sitting up eating food. HEAD AND NECK: [place] conjunctivae. HEART: Normal rate. LUNGS: Clear with decreased sounds. ABDOMEN: Soft and nontender. EXTREMITIES: No edema. LABORATORY AND DIAGNOSTIC DATA: WBC today is 18.5, hemoglobin 11, hematocrit 33.5, and platelets 214,000. Sodium 132, potassium 4.5, chloride 99, bicarbonate 25, BUN 16, and creatinine 1.8. Glucose is 107. BNP 1062. Albumin 2.1. Blood cultures x2 are negative. CT scan of abdomen and pelvis with chest showed pulmonary fibrosis, left upper lobe pneumonia, emphysema in upper lungs, mild fecal retention, and 4.2 fusiform aneurysm of abdominal aorta. IMPRESSION: Sepsis with leukocytosis and tachycardia. The patient was also hypotensive. He has pneumonia, chronic obstructive pulmonary disease with emphysema, pulmonary fibrosis, hypertension, BPH, abdominal aortic aneurysm, nicotine dependence, history of lung cancer, and psychiatric problem. RECOMMENDATION: We will continue with Levaquin and Rocephin. We will follow up the cultures. We will order a sputum culture. At the end of my exam, I thank Dr. Fraire for involving me in the care of this patient. Vincenzo Soto M.D. DR: MARU JOB#: [id number] CC: NICOLAS
--- NOTE | 2019-06-09 19:12 | NUR ---
NURSE NOTES: Report given to UNA Wheeler. Patient denies pain. Cough medicine given for continuing , occasional cough. No sign of respiratory or cardiac distress. Bed in lowest, locked position with bed alarm on and urinal and call escobar in reach.
--- NOTE | 2019-06-09 19:20 | NUR ---
NURSE NOTES: Received report from UNA Abreu. Patient in bed awake showing no sign of acute distress. AOx2. Respiration even and nonlabored on room air. No sob noted. IV noted on Left FA 18g 0.45%NS @75cc/hr patent and intact. Bed in lowest position, wheels locked and alarm on. Call button within reach. All needs attended and met. Will continue plan of care.
[2019-06-09 20:00] VITALS: BP 125/72
[2019-06-09] MEDS: Tamsulosin 0.4mg cap ORAL SCH (21:57)
[2019-06-10] VITALS: BP 122/70
[2019-06-10 04:00] VITALS: BP 125/71
[2019-06-10 04:44] LABS: ALANINE AMINOTRANSFERASE 17 U/L (12-78); ALBUMIN 1.8 G/DL (3.4-5.0); ALBUMIN/GLOBULIN RATIO 0.4 (1.0-2.7); ALKALINE PHOSPHATASE 65 U/L (46-116); ANION GAP 7 mmol/L (5-15); ASPARTATE AMINO TRANSFERASE 20 U/L (15-37); BILIRUBIN,TOTAL 0.1 MG/DL (0.2-1.0); BLOOD UREA NITROGEN 19 mg/dL (7-18); CALCIUM 8.4 MG/DL (8.5-10.1); CARBON DIOXIDE 25 MMOL/L (21-32); CHLORIDE 110 MMOL/L (98-107); CREATININE 1.1 MG/DL (0.55-1.30); PHOSPHORUS 2.9 MG/DL (2.5-4.9); POTASSIUM 4.3 MMOL/L (3.5-5.1); SODIUM 142 MMOL/L (136-145)
[2019-06-10] MEDS: dilTIAZem HCl 30mg tab ORAL SCH ×3 (05:55→22:00)
--- NOTE | 2019-06-10 07:27 | NUR ---
NURSE NOTES: Received report from UNA Wheeler. Patient is awake, eating breakfast calmly. No sign of respiratory or cardiac distress. Continuing with plan of care. Bed in lowest, locked position and yellow socks on--fall precautions in place. Reminded patient to call for help when he needs something for his safety--he agreed.
[2019-06-10 07:49] VITALS: BP 112/67
[2019-06-10] MEDS: Docusate 100mg cap ORAL SCH ×3 (08:48→17:21)
[2019-06-10] MEDS: Aspirin Baby 81mg ORAL SCH (08:50)
[2019-06-10] MEDS: Depakote 500mg tab ORAL SCH ×2 (08:50→21:06)
[2019-06-10] MEDS: Heparin 5000 units/ml inj SUBQ SCH ×2 (08:53→21:08)
--- NOTE | 2019-06-10 09:31 | Infectious Diseases Prog Note ---
Assessment/Plan Assessment/Plan IMPRESSION: Sepsis pneumonia, chronic obstructive pulmonary disease Emphysema, pulmonary fibrosis, hypertension, BPH, Abdominal aortic aneurysm, Nicotine dependence, history of lung cancer, psychiatric problem. RECOMMENDATION: We will continue with Levaquin and Rocephin. We will follow up the cultures. Subjective ROS Limited/Unobtainable: No Constitutional: Reports: no symptoms Respiratory: Reports: productive cough Gastrointestinal/Abdominal: Reports: no symptoms Genitourinary: Reports: no symptoms Allergies: Coded Allergies: No Known Allergies (Unverified , 04/25/13) Objective Vital Signs Last 24 Hour Vital Signs Date Time Temp Pulse Resp B/P (MAP) Pulse Ox O2 Delivery O2 Flow Rate FiO2 06/10/19 09:18 Nasal Cannula 2.0 Nasal Cannula 2.0 06/10/19 08:00 82 06/10/19 07:49 97.4 79 20 112/67 (82) 97 06/10/19 06:45 96 Nasal Cannula 2.0 28 06/10/19 06:45 79 16 96 Nasal Cannula 2.0 28 06/10/19 05:55 82 125/71 06/10/19 04:00 97.3 79 19 125/71 (89) 99 06/10/19 04:00 82 06/10/19 00:00 79 06/10/19 00:00 97.9 82 19 122/70 (87) 98 06/09/19 21:56 85 125/72 06/09/19 21:00 Nasal Cannula 2.0 Nasal Cannula 2.0 06/09/19 20:00 97.5 85 19 125/72 (89) 96 06/09/19 20:00 71 06/09/19 19:20 97 Nasal Cannula 2.0 28 06/09/19 19:19 72 18 98 Nasal Cannula 2.0 28 06/09/19 16:00 97.5 70 18 110/61 (77) 96 06/09/19 16:00 74 06/09/19 13:44 67 93/52 06/09/19 12:00 97.5 68 20 93/52 (66) 97 06/09/19 12:00 67 06/09/19 11:25 92 Height (Feet): 6 Height (Inches): 0.00 Weight (Pounds): 167 General Appearance: no acute distress HEENT: mucous membranes moist Respiratory/Chest: other - coarse sounds with deep breathing Cardiovascular: normal rate Abdomen: soft, non tender Extremities: no edema Neurologic/Psychiatric: alert, responsive Microbiology Date/Time Source Procedure Growth Status 06/07/19 18:10 Blood Blood Culture - Preliminary NO GROWTH AFTER 48 HOURS Resulted 06/07/19 17:55 Blood Blood Culture - Preliminary NO GROWTH AFTER 48 HOURS Resulted 06/09/19 14:45 Sputum Gram Stain - Final Resulted 06/09/19 14:45 Sputum Sputum Culture - Preliminary NORMAL UPPER RESPIRATORY ОЛЕГ AT 24 ... Resulted Laboratory Tests Test 06/09/19 12:10 06/09/19 13:36 06/09/19 19:52 06/10/19 04:08 Troponin I 0.000 ng/mL (0.000-0.056) 0.012 ng/mL (0.000-0.056) 0.003 ng/mL (0.000-0.056) Urine Legionella Antigen Pending Sodium Level 142 MMOL/L (136-145) Potassium Level 4.3 MMOL/L (3.5-5.1) Chloride Level 110 MMOL/L (98-107) H Carbon Dioxide Level 25 MMOL/L (21-32) Anion Gap 7 mmol/L (5-15) Blood Urea Nitrogen 19 mg/dL (7-18) H Creatinine 1.1 MG/DL (0.55-1.30) Estimat Glomerular Filtration Rate > 60 mL/min (>60) Glucose Level 81 MG/DL (74-106) Calcium Level 8.4 MG/DL (8.5-10.1) L Phosphorus Level 2.9 MG/DL (2.5-4.9) Magnesium Level 2.0 MG/DL (1.8-2.4) Total Bilirubin 0.1 MG/DL (0.2-1.0) L Aspartate Amino Transf (AST/SGOT) 20 U/L (15-37) Alanine Aminotransferase (ALT/SGPT) 17 U/L (12-78) Alkaline Phosphatase 65 U/L (46-116) Total Protein 6.5 G/DL (6.4-8.2) Albumin 1.8 G/DL (3.4-5.0) L Globulin 4.7 g/dL Albumin/Globulin Ratio 0.4 (1.0-2.7) L Current Medications Medications (Trade) Dose Ordered Sig/Carlito Route PRN Reason Start Time Stop Time Status Last Admin Dose Admin Albuterol/ Ipratropium (Albuterol/ Ipratropium) 3 ml Q6HRT PRN HHN Shortness of Breath 06/08/19 00:00 06/13/19 00:00 06/08/19 09:50 Aspirin (ASA) 81 mg DAILY ORAL 06/08/19 09:00 07/08/19 08:59 06/10/19 08:50 Ceftriaxone Sodium 1 gm/ Dextrose 55 ml @ 110 mls/hr Q24H IVPB 06/08/19 18:00 06/15/19 17:59 06/09/19 18:00 Clozapine (Clozaril) 200 mg QHS ORAL 06/08/19 21:00 06/15/19 20:59 06/09/19 21:57 Diltiazem HCl (Cardizem) 30 mg EVERY 8 HOURS ORAL 06/08/19 18:15 07/08/19 18:14 06/10/19 05:55 Divalproex Sodium (Depakote) 500 mg EVERY 12 HOURS ORAL 06/08/19 09:00 07/08/19 08:59 06/10/19 08:50 Docusate Sodium (Colace) 100 mg TWICE A DAY ORAL 06/08/19 09:00 07/08/19 08:59 06/09/19 10:42 Guaifenesin/ Dextromethorphan (Robitussin DM Syrup) 10 ml Q4H PRN ORAL For Cough 06/09/19 09:00 07/09/19 08:59 06/09/19 18:50 Heparin Sodium (Porcine) (Heparin 5000 units/ml) 5,000 units EVERY 12 HOURS SUBQ 06/08/19 09:00 07/08/19 08:59 06/10/19 08:53 Levofloxacin (Levaquin) 250 mg DAILY ORAL 06/09/19 09:00 06/16/19 08:59 06/10/19 08:50 Nicotine (Nicoderm) 1 patch Q24H TDERMAL 06/08/19 13:30 07/08/19 13:29 06/09/19 13:44 Sodium Chloride 1,000 ml @ 75 mls/hr [id number] IV 06/09/19 14:23 07/09/19 14:22 06/10/19 03:54 Tamsulosin HCl (Flomax) 0.4 mg BEDTIME ORAL 06/08/19 21:00 07/08/19 20:59 06/09/19 21:57 Vincenzo Soto MD Jun 10, 2019 09:31
[2019-06-10 12:15] VITALS: BP 114/76
--- NOTE | 2019-06-10 14:14 | Pulmonology Progress Note ---
Assessment/Plan Assessment/Plan Pulmonary Progress Note d Assessment/Plan IMPRESSION: 1. Evidence of pneumonia acute 2. Nicotine dependence. 3. Anemia. 4. Psychosis. 5. Psychiatric disorder. 6. Severe protein-calorie malnutrition. 7. Pulmonary fibrosis. 8. MERLYN Pleural thickening PLAN respiratory care as is antibiotics noted cards noted CT chest reviewed smoking cessation DVT prophylaxis oxygen therapy and taper impression, plan, and exam edited and reviewed in detail care discussed with RN Subjective Allergies: Coded Allergies: No Known Allergies (Unverified , 04/25/13) Subjective care noted and reviewed mild congestion Objective Vital Signs Noted Objective WDWN NAD reduced breath sounds bilaterally occasional rhonchi [id number] without MRG NABS nontender no HSM no CCE nonfocal Microbiology Date/Time Source Procedure Growth Status 06/07/19 18:10 Blood Blood Culture - Preliminary NO GROWTH AFTER 24 HOURS Resulted 06/07/19 17:55 Blood Blood Culture - Preliminary NO GROWTH AFTER 24 HOURS Resulted Laboratory Tests 06/08/19 19:55: Troponin I 0.000 06/09/19 04:10: Troponin I 0.000 Current Medications Medications (Trade) Dose Ordered Sig/Carlito Route PRN Reason Start Time Stop Time Status Last Admin Dose Admin Albuterol/ Ipratropium (Albuterol/ Ipratropium) 3 ml Q6HRT PRN HHN Shortness of Breath 06/08/19 00:00 06/13/19 00:00 06/08/19 09:50 Aspirin (ASA) 81 mg DAILY ORAL 06/08/19 09:00 07/08/19 08:59 06/08/19 08:59 Ceftriaxone Sodium 1 gm/ Dextrose 55 ml @ 110 mls/hr Q24H IVPB 06/08/19 18:00 06/15/19 17:59 06/08/19 18:05 Clozapine (Clozaril) 200 mg QHS ORAL 06/08/19 21:00 06/15/19 20:59 06/08/19 21:20 Diltiazem HCl (Cardizem) 30 mg EVERY 8 HOURS ORAL 06/08/19 18:15 07/08/19 18:14 Divalproex Sodium (Depakote) 500 mg EVERY 12 HOURS ORAL 06/08/19 09:00 07/08/19 08:59 06/08/19 21:19 Docusate Sodium (Colace) 100 mg TWICE A DAY ORAL 06/08/19 09:00 07/08/19 08:59 06/08/19 17:59 Heparin Sodium (Porcine) (Heparin 5000 units/ml) 5,000 units EVERY 12 HOURS SUBQ 06/08/19 09:00 07/08/19 08:59 06/08/19 21:24 Levofloxacin (Levaquin) 250 mg DAILY ORAL 06/09/19 09:00 06/16/19 08:59 Nicotine (Nicoderm) 1 patch Q24H TDERMAL 06/08/19 13:30 07/08/19 13:29 06/08/19 13:08 Sodium Chloride 1,000 ml @ 110 mls/hr Q9H6M IV 06/08/19 12:42 07/08/19 12:41 06/09/19 06:49 Tamsulosin HCl (Flomax) 0.4 mg BEDTIME ORAL 06/08/19 21:00 07/08/19 20:59 06/08/19 21:20 Subjective ROS Limited/Unobtainable: No Allergies: Coded Allergies: No Known Allergies (Unverified , 04/25/13) Objective Last 24 Hour Vital Signs Date Time Temp Pulse Resp B/P (MAP) Pulse Ox O2 Delivery O2 Flow Rate FiO2 06/10/19 13:22 78 114/76 06/10/19 12:21 78 06/10/19 12:15 97.3 75 18 114/76 (89) 98 06/10/19 09:18 Room Air 2.0 Nasal Cannula 06/10/19 08:00 82 06/10/19 07:49 97.4 79 20 112/67 (82) 97 06/10/19 06:45 96 Nasal Cannula 2.0 28 06/10/19 06:45 79 16 96 Nasal Cannula 2.0 28 06/10/19 05:55 82 125/71 06/10/19 04:00 97.3 79 19 125/71 (89) 99 06/10/19 04:00 82 06/10/19 00:00 79 06/10/19 00:00 97.9 82 19 122/70 (87) 98 06/09/19 21:56 85 125/72 06/09/19 21:00 Nasal Cannula 2.0 Nasal Cannula 2.0 06/09/19 20:00 97.5 85 19 125/72 (89) 96 06/09/19 20:00 71 06/09/19 19:20 97 Nasal Cannula 2.0 28 06/09/19 19:19 72 18 98 Nasal Cannula 2.0 28 06/09/19 16:00 97.5 70 18 110/61 (77) 96 06/09/19 16:00 74 Intake and Output 06/09/19 06/10/19 19:00 07:00 Intake Total 360 ml Output Total 1825 ml 1000 ml Balance -1465 ml -1000 ml Intake Oral 360 ml Output Urine Total 1825 ml 1000 ml # Voids 7 5 Microbiology Date/Time Source Procedure Growth Status 06/07/19 18:10 Blood Blood Culture - Preliminary NO GROWTH AFTER 48 HOURS Resulted 06/07/19 17:55 Blood Blood Culture - Preliminary NO GROWTH AFTER 48 HOURS Resulted 06/09/19 14:45 Sputum Gram Stain - Final Resulted 06/09/19 14:45 Sputum Sputum Culture - Preliminary NORMAL UPPER RESPIRATORY ОЛЕГ AT 24 ... Resulted 06/07/19 19:00 Nasal Nares MRSA Culture - Final NO METHICILLIN RESISTANT STAPH AUREUS... Complete Laboratory Tests 06/09/19 19:52: Troponin I 0.012 06/10/19 04:08: Troponin I 0.003, Sodium Level 142, Potassium Level 4.3, Chloride Level 110H, Carbon Dioxide Level 25, Anion Gap 7, Blood Urea Nitrogen 19H, Creatinine 1.1, Estimat Glomerular Filtration Rate > 60, Glucose Level 81, Calcium Level 8.4L, Phosphorus Level 2.9, Magnesium Level 2.0, Total Bilirubin 0.1L, Aspartate Amino Transf (AST/SGOT) 20, Alanine Aminotransferase (ALT/SGPT) 17, Alkaline Phosphatase 65, Total Protein 6.5, Albumin 1.8L, Globulin 4.7, Albumin/Globulin Ratio 0.4L 06/10/19 12:00: Troponin I 0.002 Current Medications Medications (Trade) Dose Ordered Sig/Carlito Route PRN Reason Start Time Stop Time Status Last Admin Dose Admin Albuterol/ Ipratropium (Albuterol/ Ipratropium) 3 ml Q6HRT PRN HHN Shortness of Breath 06/08/19 00:00 06/13/19 00:00 06/08/19 09:50 Aspirin (ASA) 81 mg DAILY ORAL 06/08/19 09:00 07/08/19 08:59 06/10/19 08:50 Ceftriaxone Sodium 1 gm/ Dextrose 55 ml @ 110 mls/hr Q24H IVPB 06/08/19 18:00 06/15/19 17:59 06/09/19 18:00 Clozapine (Clozaril) 200 mg QHS ORAL 06/08/19 21:00 06/15/19 20:59 06/09/19 21:57 Diltiazem HCl (Cardizem) 30 mg EVERY 8 HOURS ORAL 06/08/19 18:15 07/08/19 18:14 06/10/19 13:22 Divalproex Sodium (Depakote) 500 mg EVERY 12 HOURS ORAL 06/08/19 09:00 07/08/19 08:59 06/10/19 08:50 Docusate Sodium (Colace) 100 mg TWICE A DAY ORAL 06/08/19 09:00 07/08/19 08:59 06/09/19 10:42 Guaifenesin/ Dextromethorphan (Robitussin DM Syrup) 10 ml Q4H PRN ORAL For Cough 06/09/19 09:00 07/09/19 08:59 06/09/19 18:50 Heparin Sodium (Porcine) (Heparin 5000 units/ml) 5,000 units EVERY 12 HOURS SUBQ 06/08/19 09:00 07/08/19 08:59 06/10/19 08:53 Levofloxacin (Levaquin) 250 mg DAILY ORAL 06/09/19 09:00 06/16/19 08:59 06/10/19 08:50 Nicotine (Nicoderm) 1 patch Q24H TDERMAL 06/08/19 13:30 07/08/19 13:29 06/10/19 13:22 Sodium Chloride 1,000 ml @ 75 mls/hr [id number] IV 06/09/19 14:23 07/09/19 14:22 06/10/19 03:54 Tamsulosin HCl (Flomax) 0.4 mg BEDTIME ORAL 06/08/19 21:00 07/08/19 20:59 06/09/19 21:57 Rajeev Turner MD Jun 10, 2019 14:14
[2019-06-10] MEDS: Guaifenesin/DM 10ml syrup ORAL PRN (14:39)
[2019-06-10 15:43] VITALS: BP 106/67
--- NOTE | 2019-06-10 15:51 | Cardiology Report ---
APPROVED REPORT EKG Measurement Heart [id number] Sinus tachycardia Nonspecific ST abnormality Abnormal ECG
[2019-06-10] MEDS: cefTRIAXone 1 GM in D5W 55 ML IVPB SCH (17:22)
[2019-06-10] MEDS ORDERED: CLOZAPINE200 MG PO (17:56)
[2019-06-10] MEDS ORDERED: NEXIUM20 MG ORAL (17:56)
--- NOTE | 2019-06-10 19:19 | NUR ---
NURSE NOTES: Gave report to UNA Coronado. Patient is stable and no signs of cardiac or respiratory distress. AOX4 with calm affect. Urinal and call escobar in reach.
--- NOTE | 2019-06-10 19:22 | NUR ---
NURSE NOTES: Received report from Kaley Rubio RN. Patient AAO X4 in bed with no S/S of acute pain or discomfort at this time. Kept clean, dry, and comfortable in bed. IV line established and placed on continuous cardiac monitoring per protocol. Ambulates with minimal assistance to the bathroom and offered bedside urinal PRN. Safety precaution in place; siderails X3 up, call light within reach, bed in lowest position, brakes and alarm on at all times. Needs and wants anticipated and attended, will continue plan of care and monitor for any changes noted. Monitored for episodes of hypotension, aware.
[2019-06-10 20:00] VITALS: BP 117/70
[2019-06-10] MEDS: Tamsulosin 0.4mg cap ORAL SCH (21:06)
--- NOTE | 2019-06-10 23:30 | Consultation ---
DATE OF CONSULTATION: 06/10/2019 CONSULTING PHYSICIAN: Swapnil Simpson M.D. REFERRING PHYSICIAN: Mohinder Foster M.D. HISTORY OF PRESENT ILLNESS: This is a 64-year-old male with a history of lung cancer, COPD, seizure, history of anxiety disorder, depression, who has been admitted to the hospital due to he is now failure to thrive. The patient has been declining and presents with depressed mood, anxiety, and anhedonia. He has been having decreased appetite and weight loss. PAST PSYCHIATRIC HISTORY: Anxiety and depression. MEDICATIONS: Currently, on Depakote and clonidine. ALLERGIES: No known drug allergies. SUBSTANCE ABUSE HISTORY: No known history of illicit drug use. The patient is a smoker. MENTAL STATUS EXAMINATION: The patient is disoriented, however, is alert. Mood is anxious. Affect is constricted, congruent with mood. Thought process is concrete. Thought content, no suicidal or homicidal ideation. Cognition is impaired. Insight and judgment is impaired. ASSESSMENT: [place] I Major depressive disorder. Anxiety disorder. Cognitive impairment. [place] II Deferred. [place] III As above. [place] IV Low. [place] V 50. PLAN: 1. The patient will be started on Remeron 50 mg at bedtime. 2. Provide the patient with reality orientation and supportive therapy. Swapnil Simpson M.D. DR: ROSEANNA JOB#: [id number] CC:
[2019-06-11] VITALS: BP 107/62
[2019-06-11 04:00] VITALS: BP 103/66
[2019-06-11 05:55] LABS: BASOPHILS % (AUTO) 1.4 % (0.0-2.0); EOSINOPHILS % (AUTO) 1.6 % (0.0-3.0); LYMPHOCYTES % (AUTO) 26.1 % (20.0-45.0); MEAN CORPUSCULAR VOLUME 95 FL (80-99); MONOCYTES % (AUTO) 4.7 % (1.0-10.0); NEUTROPHILS % (AUTO) 66.2 % (45.0-75.0); PLATELET COUNT 207 K/UL (150-450); RED BLOOD COUNT 3.56 M/UL (4.70-6.10); RED CELL DISTRIBUTION WIDTH 15.5 % (11.6-14.8); WHITE BLOOD COUNT 4.8 K/UL (4.8-10.8)
[2019-06-11] MEDS: dilTIAZem HCl 30mg tab ORAL SCH ×3 (06:00→22:01)
[2019-06-11 06:09] LABS: ALANINE AMINOTRANSFERASE 14 U/L (12-78); ALBUMIN/GLOBULIN RATIO 0.4 (1.0-2.7); ALKALINE PHOSPHATASE 67 U/L (46-116); ANION GAP 13 mmol/L (5-15); ASPARTATE AMINO TRANSFERASE 22 U/L (15-37); BILIRUBIN,TOTAL 0.1 MG/DL (0.2-1.0); BLOOD UREA NITROGEN 17 mg/dL (7-18); CALCIUM 8.7 MG/DL (8.5-10.1); CARBON DIOXIDE 22 MMOL/L (21-32); CHLORIDE 107 MMOL/L (98-107); CREATININE 1.1 MG/DL (0.55-1.30); POTASSIUM 4.7 MMOL/L (3.5-5.1); SODIUM 141 MMOL/L (136-145)
--- NOTE | 2019-06-11 07:10 | NUR ---
NURSE NOTES: Received report from UNA Coronado. Pt in bed, awake, talkative, A/Ox2, no complaints of pain, no apparent distress noted, bed in lowest position, call light within reach, access to urinal, bed alarm on, discussed plan of care with pt.
--- NOTE | 2019-06-11 07:44 | NUR ---
HAND-OFF: Report given to Angelika Babb Endorsed plan of care. Patient in stable condition.
[2019-06-11 08:00] VITALS: BP 121/69
[2019-06-11] MEDS: Aspirin Baby 81mg ORAL SCH (08:29)
[2019-06-11] MEDS: Docusate 100mg cap ORAL SCH ×2 (08:29→17:01)
[2019-06-11] MEDS: Depakote 500mg tab ORAL SCH ×2 (08:30→20:25)
[2019-06-11] MEDS: Heparin 5000 units/ml inj SUBQ SCH ×2 (08:35→20:26)
[2019-06-11 12:00] VITALS: BP_SYST 116; BP_SYST 128; BP_DIAS 60; BP_DIAS 69
--- NOTE | 2019-06-11 12:18 | General Progress Note ---
Assessment/Plan Assessment/Plan: 1. Emerging from septic shock due to #2. 2. LL Pneumonia. 3. Lung CA. Under control post immuno Rx. 4. Extensive Lung Emphysema. 5. Cachexia. 6. Fusiform Infrarenal AAA. Aortic diameter unchanged 4.2 cm. 7. h/o Aortitis. Out of bed Subjective Allergies: Coded Allergies: No Known Allergies (Unverified , 04/25/13) Subjective Less SOB less cough. Objective Last 24 Hour Vital Signs Date Time Temp Pulse Resp B/P (MAP) Pulse Ox O2 Delivery O2 Flow Rate FiO2 06/11/19 11:34 79 06/11/19 08:38 Room Air 06/11/19 08:00 98.2 78 16 121/69 (86) 95 06/11/19 07:35 101 06/11/19 06:00 74 98/66 06/11/19 04:00 97.4 74 16 103/66 (78) 96 06/11/19 04:00 86 06/11/19 00:00 77 06/11/19 00:00 97.8 75 16 107/62 (77) 95 06/10/19 22:00 65 99/53 06/10/19 21:00 Room Air 2.0 Nasal Cannula 06/10/19 20:00 98.2 72 16 117/70 (86) 95 06/10/19 20:00 72 06/10/19 19:30 97 Nasal Cannula 2.0 28 06/10/19 19:30 80 16 97 Nasal Cannula 2.0 28 06/10/19 16:00 70 06/10/19 15:43 98.1 75 18 106/67 (80) 95 06/10/19 13:22 78 114/76 06/10/19 12:21 78 Intake and Output 06/10/19 06/11/19 18:59 06:59 Output Total 825 ml Balance -825 ml Output Urine Total 825 ml # Voids 5 5 Laboratory Tests 06/10/19 20:10: Troponin I 0.004 06/11/19 05:00: White Blood Count 4.8, Red Blood Count 3.56L, Hemoglobin 11.0L, Hematocrit 34.0L , Mean Corpuscular Volume 95, Mean Corpuscular Hemoglobin 30.9, Mean Corpuscular Hemoglobin Concent 32.4, Red Cell Distribution Width 15.5H, Platelet Count 207, Mean Platelet Volume 4.6L, Neutrophils (%) (Auto) 66.2, Lymphocytes (%) (Auto) 26.1, Monocytes (%) (Auto) 4.7, Eosinophils (%) (Auto) 1.6, Basophils (%) (Auto) 1.4, Sodium Level 141, Potassium Level 4.7, Chloride Level 107, Carbon Dioxide Level 22, Anion Gap 13, Blood Urea Nitrogen 17, Creatinine 1.1, Estimat Glomerular Filtration Rate > 60, Glucose Level 74, Calcium Level 8.7, Phosphorus Level 4.0, Magnesium Level 1.9, Total Bilirubin 0.1L, Aspartate Amino Transf (AST/SGOT) 22, Alanine Aminotransferase (ALT/SGPT) 14, Alkaline Phosphatase 67, Total Protein 6.7, Albumin 2.0L, Globulin 4.7, Albumin/Globulin Ratio 0.4L Height (Feet): 6 Height (Inches): 0.00 Weight (Pounds): 167 Objective Cachechtic. CV RR Lungs B Ronchi Abd SNT. BS + E No edema ++ Clubbing Mohinder Foster MD Jun 11, 2019 12:18
--- NOTE | 2019-06-11 15:15 | Pulmonology Progress Note ---
Assessment/Plan Assessment/Plan Pulmonary Progress Note d Assessment/Plan IMPRESSION: 1. Evidence of pneumonia acute 2. Nicotine dependence. 3. Anemia. 4. Psychosis. 5. Psychiatric disorder. 6. Severe protein-calorie malnutrition. 7. Pulmonary fibrosis. 8. MERLYN Pleural thickening PLAN respiratory care as is antibiotics noted cards noted CT chest reviewed smoking cessation DVT prophylaxis oxygen therapy and taper impression, plan, and exam edited and reviewed in detail care discussed with RN Subjective Allergies: Coded Allergies: No Known Allergies (Unverified , 04/25/13) Subjective care noted and reviewed no new complaints Objective Vital Signs Noted Objective WDWN NAD reduced breath sounds bilaterally occasional rhonchi [id number] without MRG NABS nontender no HSM no CCE nonfocal Microbiology Date/Time Source Procedure Growth Status 06/07/19 18:10 Blood Blood Culture - Preliminary NO GROWTH AFTER 24 HOURS Resulted 06/07/19 17:55 Blood Blood Culture - Preliminary NO GROWTH AFTER 24 HOURS Resulted Laboratory Tests 06/08/19 19:55: Troponin I 0.000 06/09/19 04:10: Troponin I 0.000 Current Medications Medications (Trade) Dose Ordered Sig/Carlito Route PRN Reason Start Time Stop Time Status Last Admin Dose Admin Albuterol/ Ipratropium (Albuterol/ Ipratropium) 3 ml Q6HRT PRN HHN Shortness of Breath 06/08/19 00:00 06/13/19 00:00 06/08/19 09:50 Aspirin (ASA) 81 mg DAILY ORAL 06/08/19 09:00 07/08/19 08:59 06/08/19 08:59 Ceftriaxone Sodium 1 gm/ Dextrose 55 ml @ 110 mls/hr Q24H IVPB 06/08/19 18:00 06/15/19 17:59 06/08/19 18:05 Clozapine (Clozaril) 200 mg QHS ORAL 06/08/19 21:00 06/15/19 20:59 06/08/19 21:20 Diltiazem HCl (Cardizem) 30 mg EVERY 8 HOURS ORAL 06/08/19 18:15 07/08/19 18:14 Divalproex Sodium (Depakote) 500 mg EVERY 12 HOURS ORAL 06/08/19 09:00 07/08/19 08:59 06/08/19 21:19 Docusate Sodium (Colace) 100 mg TWICE A DAY ORAL 06/08/19 09:00 07/08/19 08:59 06/08/19 17:59 Heparin Sodium (Porcine) (Heparin 5000 units/ml) 5,000 units EVERY 12 HOURS SUBQ 06/08/19 09:00 07/08/19 08:59 06/08/19 21:24 Levofloxacin (Levaquin) 250 mg DAILY ORAL 06/09/19 09:00 06/16/19 08:59 Nicotine (Nicoderm) 1 patch Q24H TDERMAL 06/08/19 13:30 07/08/19 13:29 06/08/19 13:08 Sodium Chloride 1,000 ml @ 110 mls/hr Q9H6M IV 06/08/19 12:42 07/08/19 12:41 06/09/19 06:49 Tamsulosin HCl (Flomax) 0.4 mg BEDTIME ORAL 06/08/19 21:00 07/08/19 20:59 06/08/19 21:20 Subjective ROS Limited/Unobtainable: No Allergies: Coded Allergies: No Known Allergies (Unverified , 04/25/13) Objective Last 24 Hour Vital Signs Date Time Temp Pulse Resp B/P (MAP) Pulse Ox O2 Delivery O2 Flow Rate FiO2 06/11/19 13:45 74 128/69 06/11/19 12:00 98.1 74 18 128/69 (88) 96 06/11/19 11:34 79 06/11/19 08:38 Room Air 06/11/19 08:00 98.2 78 16 121/69 (86) 95 06/11/19 07:35 101 06/11/19 06:00 74 98/66 06/11/19 04:00 97.4 74 16 103/66 (78) 96 06/11/19 04:00 86 06/11/19 00:00 77 06/11/19 00:00 97.8 75 16 107/62 (77) 95 06/10/19 22:00 65 99/53 06/10/19 21:00 Room Air 2.0 Nasal Cannula 06/10/19 20:00 98.2 72 16 117/70 (86) 95 06/10/19 20:00 72 06/10/19 19:30 97 Nasal Cannula 2.0 28 06/10/19 19:30 80 16 97 Nasal Cannula 2.0 28 06/10/19 16:00 70 06/10/19 15:43 98.1 75 18 106/67 (80) 95 Intake and Output 06/10/19 06/11/19 19:00 07:00 Output Total 825 ml Balance -825 ml Output Urine Total 825 ml # Voids 5 5 Microbiology Date/Time Source Procedure Growth Status 06/09/19 14:45 Sputum Gram Stain - Final Complete 06/09/19 14:45 Sputum Sputum Culture - Final NORMAL UPPER RESPIRATORY ОЛЕГ PRESENT Complete Laboratory Tests 06/10/19 20:10: Troponin I 0.004 06/11/19 05:00: White Blood Count 4.8, Red Blood Count 3.56L, Hemoglobin 11.0L, Hematocrit 34.0L , Mean Corpuscular Volume 95, Mean Corpuscular Hemoglobin 30.9, Mean Corpuscular Hemoglobin Concent 32.4, Red Cell Distribution Width 15.5H, Platelet Count 207, Mean Platelet Volume 4.6L, Neutrophils (%) (Auto) 66.2, Lymphocytes (%) (Auto) 26.1, Monocytes (%) (Auto) 4.7, Eosinophils (%) (Auto) 1.6, Basophils (%) (Auto) 1.4, Sodium Level 141, Potassium Level 4.7, Chloride Level 107, Carbon Dioxide Level 22, Anion Gap 13, Blood Urea Nitrogen 17, Creatinine 1.1, Estimat Glomerular Filtration Rate > 60, Glucose Level 74, Calcium Level 8.7, Phosphorus Level 4.0, Magnesium Level 1.9, Total Bilirubin 0.1L, Aspartate Amino Transf (AST/SGOT) 22, Alanine Aminotransferase (ALT/SGPT) 14, Alkaline Phosphatase 67, Total Protein 6.7, Albumin 2.0L, Globulin 4.7, Albumin/Globulin Ratio 0.4L Current Medications Medications (Trade) Dose Ordered Sig/Carlito Route PRN Reason Start Time Stop Time Status Last Admin Dose Admin Albuterol/ Ipratropium (Albuterol/ Ipratropium) 3 ml Q6HRT PRN HHN Shortness of Breath 06/08/19 00:00 06/13/19 00:00 06/08/19 09:50 Aspirin (ASA) 81 mg DAILY ORAL 06/08/19 09:00 07/08/19 08:59 06/11/19 08:29 Ceftriaxone Sodium 1 gm/ Dextrose 55 ml @ 110 mls/hr Q24H IVPB 06/08/19 18:00 06/15/19 17:59 06/10/19 17:22 Clozapine (Clozaril) 200 mg QHS ORAL 06/08/19 21:00 06/15/19 20:59 06/10/19 21:07 Diltiazem HCl (Cardizem) 30 mg EVERY 8 HOURS ORAL 06/08/19 18:15 07/08/19 18:14 06/11/19 13:45 Divalproex Sodium (Depakote) 500 mg EVERY 12 HOURS ORAL 06/08/19 09:00 07/08/19 08:59 06/11/19 08:30 Docusate Sodium (Colace) 100 mg TWICE A DAY ORAL 06/08/19 09:00 07/08/19 08:59 06/11/19 08:29 Guaifenesin/ Dextromethorphan (Robitussin DM Syrup) 10 ml Q4H PRN ORAL For Cough 06/09/19 09:00 07/09/19 08:59 06/10/19 14:39 Heparin Sodium (Porcine) (Heparin 5000 units/ml) 5,000 units EVERY 12 HOURS SUBQ 06/08/19 09:00 07/08/19 08:59 06/11/19 08:35 Levofloxacin (Levaquin) 250 mg DAILY ORAL 06/09/19 09:00 06/16/19 08:59 06/11/19 08:30 Mirtazapine (Remeron) 15 mg BEDTIME ORAL 06/11/19 21:00 07/11/19 20:59 Nicotine (Nicoderm) 1 patch Q24H TDERMAL 06/08/19 13:30 07/08/19 13:29 06/11/19 13:45 Sodium Chloride 1,000 ml @ 75 mls/hr [id number] IV 06/09/19 14:23 07/09/19 14:22 06/11/19 04:39 Tamsulosin HCl (Flomax) 0.4 mg BEDTIME ORAL 06/08/19 21:00 07/08/19 20:59 06/10/19 21:06 Rajeev Turner MD Jun 11, 2019 15:15
--- NOTE | 2019-06-11 15:58 | Cardiology Progress Note ---
Assessment/Plan Problem List: (1) SVT (supraventricular tachycardia) (2) COPD (chronic obstructive pulmonary disease) (3) SOB (shortness of breath) Status: stable, progressing Status Narrative Cardiac status stable. No further SVT noted on telemetry BP stable. Assessment/Plan Continue treatment for pneumonia/ copd per primary team Would give atrovent, avoid albuterol to avoid further SVT episodes. continue low dose diltiazem Subjective ROS Limited/Unobtainable: No Subjective Cardiology for Dr. Butcher Pt with cough. no c/o dyspnea or palpitations Objective Last 24 Hour Vital Signs Date Time Temp Pulse Resp B/P (MAP) Pulse Ox O2 Delivery O2 Flow Rate FiO2 06/11/19 13:45 74 128/69 06/11/19 12:00 98.1 74 18 128/69 (88) 96 06/11/19 11:34 79 06/11/19 08:38 Room Air 06/11/19 08:00 98.2 78 16 121/69 (86) 95 06/11/19 07:35 101 06/11/19 06:00 74 98/66 06/11/19 04:00 97.4 74 16 103/66 (78) 96 06/11/19 04:00 86 06/11/19 00:00 77 06/11/19 00:00 97.8 75 16 107/62 (77) 95 06/10/19 22:00 65 99/53 06/10/19 21:00 Room Air 2.0 Nasal Cannula 06/10/19 20:00 98.2 72 16 117/70 (86) 95 06/10/19 20:00 72 06/10/19 19:30 97 Nasal Cannula 2.0 28 06/10/19 19:30 80 16 97 Nasal Cannula 2.0 28 06/10/19 16:00 70 General Appearance: WD/WN, no apparent distress, alert EENT: PERRL/EOMI Neck: no JVD Rhythm: NSR Cardiovascular: normal rate, regular rhythm, no gallop/murmur Respiratory/Chest: rhonchi - bilaterally Abdomen: non tender, soft Extremities: no swelling Intake and Output 06/10/19 06/11/19 19:00 07:00 Output Total 825 ml Balance -825 ml Output Urine Total 825 ml # Voids 5 5 Laboratory Tests Test 06/10/19:10 06/11/19 05:00 Troponin I 0.004 ng/mL (0.000-0.056) White Blood Count 4.8 K/UL (4.8-10.8) Red Blood Count 3.56 M/UL (4.70-6.10) L Hemoglobin 11.0 G/DL (14.2-18.0) L Hematocrit 34.0 % (42.0-52.0) L Mean Corpuscular Volume 95 FL (80-99) Mean Corpuscular Hemoglobin 30.9 PG (27.0-31.0) Mean Corpuscular Hemoglobin Concent 32.4 G/DL (32.0-36.0) Red Cell Distribution Width 15.5 % (11.6-14.8) H Platelet Count 207 K/UL (150-450) Mean Platelet Volume 4.6 FL (6.5-10.1) L Neutrophils (%) (Auto) 66.2 % (45.0-75.0) Lymphocytes (%) (Auto) 26.1 % (20.0-45.0) Monocytes (%) (Auto) 4.7 % (1.0-10.0) Eosinophils (%) (Auto) 1.6 % (0.0-3.0) Basophils (%) (Auto) 1.4 % (0.0-2.0) Sodium Level 141 MMOL/L (136-145) Potassium Level 4.7 MMOL/L (3.5-5.1) Chloride Level 107 MMOL/L (98-107) Carbon Dioxide Level 22 MMOL/L (21-32) Anion Gap 13 mmol/L (5-15) Blood Urea Nitrogen 17 mg/dL (7-18) Creatinine 1.1 MG/DL (0.55-1.30) Estimat Glomerular Filtration Rate > 60 mL/min (>60) Glucose Level 74 MG/DL (74-106) Calcium Level 8.7 MG/DL (8.5-10.1) Phosphorus Level 4.0 MG/DL (2.5-4.9) Magnesium Level 1.9 MG/DL (1.8-2.4) Total Bilirubin 0.1 MG/DL (0.2-1.0) L Aspartate Amino Transf (AST/SGOT) 22 U/L (15-37) Alanine Aminotransferase (ALT/SGPT) 14 U/L (12-78) Alkaline Phosphatase 67 U/L (46-116) Total Protein 6.7 G/DL (6.4-8.2) Albumin 2.0 G/DL (3.4-5.0) L Globulin 4.7 g/dL Albumin/Globulin Ratio 0.4 (1.0-2.7) L Microbiology Date/Time Source Procedure Growth Status 06/09/19 14:45 Sputum Gram Stain - Final Complete 06/09/19 14:45 Sputum Sputum Culture - Final NORMAL UPPER RESPIRATORY ОЛЕГ PRESENT Complete Qiana Gil MD Jun 11, 2019 15:58
[2019-06-11 16:00] VITALS: BP 121/67
--- NOTE | 2019-06-11 16:10 | NUR ---
PT Note PT courtney completed, tx initiated. Patient has muscle weakness with muscle tightness in both hamstrings and has decreased standing balance, making at a risk for falls. Patient needs PT to increase his muscle strength and balance to improve his safety in mobility and gait. Addendum: 06/11/19 at 1611 by CARY KOENIG PT Amended: Links added.
[2019-06-11] MEDS: cefTRIAXone 1 GM in D5W 55 ML IVPB SCH (17:01)
--- NOTE | 2019-06-11 19:21 | NUR ---
HAND-OFF: Report given to UNA Coronado.
[2019-06-11 20:00] VITALS: BP 132/78
[2019-06-11] MEDS: Tamsulosin 0.4mg cap ORAL SCH (20:25)
--- NOTE | 2019-06-11 20:35 | Diagnostic Imaging Report ---
APPROVED REPORT CPT Code: 80626 Present Symptoms Comments: LEFT LEG PAIN. LEFT LEG: Venous imaging reveals a patent deep venous system. There is no evidence of thrombus within the femoral, popliteal or tibial segments. The greater saphenous vein is also within normal limits. Doppler indicates normal spontaneous flow within these segments.
--- NOTE | 2019-06-11 20:38 | Diagnostic Imaging Report ---
APPROVED REPORT CPT Code: 82729 Present Symptoms Comments: RIGHT LEG PAIN. RIGHT LEG: Venous imaging reveals a patent deep venous system. There is no evidence of thrombus within the femoral, popliteal or tibial segments. The greater saphenous vein is also within normal limits. Doppler indicates normal spontaneous flow within these segments.
[2019-06-12] VITALS (8 sets, daily range): BP systolic 89–143; BP diastolic 54–80
[2019-06-12] MEDS: dilTIAZem HCl 30mg tab ORAL SCH ×3 (06:09→21:25)
--- NOTE | 2019-06-12 06:57 | NUR ---
HAND-OFF: Report given to Angelika Babb RN. Patient in bed with no S/S of distress. Endorsed plan of care.
--- NOTE | 2019-06-12 07:14 | NUR ---
NURSE NOTES: Received report from UNA Coronado. Pt in bed, awake, talkative, no complaints of pain, no apparent distress noted, bed in lowest position, call light within reach, bed alarm on, pt instructed to call for help or for getting OOB, IV fluids running according to order.
[2019-06-12] MEDS: Aspirin Baby 81mg ORAL SCH (08:25)
[2019-06-12] MEDS: Depakote 500mg tab ORAL SCH ×2 (08:26→20:36)
[2019-06-12] MEDS: Docusate 100mg cap ORAL SCH ×2 (08:26→16:51)
[2019-06-12] MEDS: Heparin 5000 units/ml inj SUBQ SCH ×2 (08:27→20:37)
[2019-06-12] MEDS ORDERED: Albuterol/Ipratropium 3ml neb HHN PRN (09:30)
[2019-06-12] MEDS ORDERED: 1/2 NS 1000ml IV ONE (10:31)
--- NOTE | 2019-06-12 12:39 | Infectious Diseases Prog Note ---
Assessment/Plan Assessment/Plan IMPRESSION: Sepsis pneumonia, chronic obstructive pulmonary disease Emphysema, pulmonary fibrosis, hypertension, BPH, Abdominal aortic aneurysm, Nicotine dependence, history of lung cancer, psychiatric problem. RECOMMENDATION: We will continue with Levaquin and Rocephin. We will follow up the cultures. Subjective ROS Limited/Unobtainable: No Constitutional: Reports: no symptoms Respiratory: Reports: productive cough; Denies: shortness of breath Gastrointestinal/Abdominal: Reports: no symptoms Genitourinary: Reports: no symptoms Allergies: Coded Allergies: No Known Allergies (Unverified , 04/25/13) Objective Vital Signs Last 24 Hour Vital Signs Date Time Temp Pulse Resp B/P (MAP) Pulse Ox O2 Delivery O2 Flow Rate FiO2 06/12/19 12:00 97.7 75 17 143/66 (91) 100 06/12/19 11:53 72 06/12/19 11:35 66 20 92 Room Air 21 06/12/19 11:34 92 Room Air 21 06/12/19 08:24 75 102/58 (73) 06/12/19 08:00 97.6 76 19 89/58 (68) 95 06/12/19 07:57 72 06/12/19 07:24 Room Air 06/12/19 06:09 75 113/70 06/12/19 04:00 68 06/12/19 04:00 98.3 75 18 113/70 (84) 93 06/12/19 00:00 98.3 81 18 109/66 (80) 93 06/12/19 00:00 77 06/11/19 22:50 95 Nasal Cannula 2.0 28 06/11/19 22:49 76 18 95 Nasal Cannula 2.0 28 06/11/19 22:01 78 135/78 06/11/19 21:00 Room Air 06/11/19 20:00 98.3 77 18 132/78 (96) 95 06/11/19 20:00 67 06/11/19 16:00 98.4 76 18 121/67 (85) 97 06/11/19 15:19 78 06/11/19 13:45 74 128/69 Height (Feet): 6 Height (Inches): 0.00 Weight (Pounds): 167 General Appearance: no acute distress HEENT: mucous membranes moist Respiratory/Chest: lungs clear Cardiovascular: normal rate Abdomen: soft, non tender Extremities: no edema Neurologic/Psychiatric: alert, oriented x 3, responsive Microbiology Date/Time Source Procedure Growth Status 06/09/19 14:45 Sputum Gram Stain - Final Complete 06/09/19 14:45 Sputum Sputum Culture - Final NORMAL UPPER RESPIRATORY ОЛЕГ PRESENT Complete Current Medications Medications (Trade) Dose Ordered Sig/Carlito Route PRN Reason Start Time Stop Time Status Last Admin Dose Admin Albuterol/ Ipratropium (Albuterol/ Ipratropium) 3 ml Q6HRT PRN HHN Shortness of Breath 06/12/19 09:30 06/17/19 09:30 Aspirin (ASA) 81 mg DAILY ORAL 06/08/19 09:00 07/08/19 08:59 06/12/19 08:25 Ceftriaxone Sodium 1 gm/ Dextrose 55 ml @ 110 mls/hr Q24H IVPB 06/08/19 18:00 06/15/19 17:59 06/11/19 17:01 Clozapine (Clozaril) 200 mg QHS ORAL 06/08/19 21:00 06/15/19 20:59 06/11/19 20:25 Diltiazem HCl (Cardizem) 30 mg EVERY 8 HOURS ORAL 06/08/19 18:15 07/08/19 18:14 06/12/19 06:09 Divalproex Sodium (Depakote) 500 mg EVERY 12 HOURS ORAL 06/08/19 09:00 07/08/19 08:59 06/12/19 08:26 Docusate Sodium (Colace) 100 mg TWICE A DAY ORAL 06/08/19 09:00 07/08/19 08:59 06/12/19 08:26 Guaifenesin/ Dextromethorphan (Robitussin DM Syrup) 10 ml Q4H PRN ORAL For Cough 06/09/19 09:00 07/09/19 08:59 06/10/19 14:39 Heparin Sodium (Porcine) (Heparin 5000 units/ml) 5,000 units EVERY 12 HOURS SUBQ 06/08/19 09:00 07/08/19 08:59 06/12/19 08:27 Levofloxacin (Levaquin) 250 mg DAILY ORAL 06/09/19 09:00 06/16/19 08:59 06/12/19 08:26 Mirtazapine (Remeron) 15 mg BEDTIME ORAL 06/11/19 21:00 07/11/19 20:59 06/11/19 20:25 Nicotine (Nicoderm) 1 patch Q24H TDERMAL 06/08/19 13:30 07/08/19 13:29 06/11/19 13:45 Sodium Chloride 1,000 ml @ 75 mls/hr [id number] IV 06/09/19 14:23 07/09/19 14:22 06/12/19 06:09 Tamsulosin HCl (Flomax) 0.4 mg BEDTIME ORAL 06/08/19 21:00 07/08/19 20:59 06/11/19 20:25 Vincenzo Soto MD Jun 12, 2019 12:39
--- NOTE | 2019-06-12 14:33 | General Progress Note ---
Assessment/Plan Status: stable, progressing Assessment/Plan: 1. Emerging from septic shock due to #2. 2. LL Pneumonia. 3. Lung CA. Under control post immuno Rx. 4. Extensive Lung Emphysema. 5. Cachexia. 6. Fusiform Infrarenal AAA. Aortic diameter unchanged 4.2 cm. 7. h/o Aortitis. Out of bed. Ordered PT. Not done yet! Subjective Allergies: Coded Allergies: No Known Allergies (Unverified , 04/25/13) Subjective Less SOB less cough. Objective Last 24 Hour Vital Signs Date Time Temp Pulse Resp B/P (MAP) Pulse Ox O2 Delivery O2 Flow Rate FiO2 06/12/19 13:12 72 119/71 06/12/19 13:10 72 119/71 (87) 06/12/19 12:00 97.7 75 17 143/66 (91) 100 06/12/19 11:53 72 06/12/19 11:35 66 20 92 Room Air 21 06/12/19 11:34 92 Room Air 21 06/12/19 08:24 75 102/58 (73) 06/12/19 08:00 97.6 76 19 89/58 (68) 95 06/12/19 07:57 72 06/12/19 07:24 Room Air 06/12/19 06:09 75 113/70 06/12/19 04:00 68 06/12/19 04:00 98.3 75 18 113/70 (84) 93 06/12/19 00:00 98.3 81 18 109/66 (80) 93 06/12/19 00:00 77 06/11/19 22:50 95 Nasal Cannula 2.0 28 06/11/19 22:49 76 18 95 Nasal Cannula 2.0 28 06/11/19 22:01 78 135/78 06/11/19 21:00 Room Air 06/11/19 20:00 98.3 77 18 132/78 (96) 95 06/11/19 20:00 67 06/11/19 16:00 98.4 76 18 121/67 (85) 97 06/11/19 15:19 78 Intake and Output 06/11/19 06/12/19 18:59 06:59 Output Total 725 ml 1300 ml Balance -725 ml -1300 ml Output Urine Total 725 ml 1300 ml # Voids 3 3 Height (Feet): 6 Height (Inches): 0.00 Weight (Pounds): 167 Objective Cachechtic. CV RR Lungs B Ronchi Abd SNT. BS + E No edema ++ Clubbing Mohinder Foster MD Jun 12, 2019 14:33
--- NOTE | 2019-06-12 14:51 | NUR ---
NURSE NOTES: Ambulated pt in hallway roughly 200 feet, well tolerated by pt, no SOB, no dizziness.
--- NOTE | 2019-06-12 15:12 | Cardiology Progress Note ---
Assessment/Plan Problem List: (1) SVT (supraventricular tachycardia) (2) COPD (chronic obstructive pulmonary disease) (3) SOB (shortness of breath) Status: stable, progressing Status Narrative Cardiac status stable. No further SVT noted on telemetry Respiratory status improving. Assessment/Plan Continue treatment for pneumonia/ copd per primary team . Completing course of ceftriaxone Would give atrovent, avoid albuterol to avoid further SVT episodes. continue low dose diltiazem Monitor on telemetry Subjective ROS Limited/Unobtainable: No Subjective Cardiology for Dr. Butcher Mr. Dowell has no respiratory c/o. No palpitations. Objective Last 24 Hour Vital Signs Date Time Temp Pulse Resp B/P (MAP) Pulse Ox O2 Delivery O2 Flow Rate FiO2 06/12/19 13:12 72 119/71 06/12/19 13:10 72 119/71 (87) 06/12/19 12:00 97.7 75 17 143/66 (91) 100 06/12/19 11:53 72 06/12/19 11:35 66 20 92 Room Air 21 06/12/19 11:34 92 Room Air 21 06/12/19 08:24 75 102/58 (73) 06/12/19 08:00 97.6 76 19 89/58 (68) 95 06/12/19 07:57 72 06/12/19 07:24 Room Air 06/12/19 06:09 75 113/70 06/12/19 04:00 68 06/12/19 04:00 98.3 75 18 113/70 (84) 93 06/12/19 00:00 98.3 81 18 109/66 (80) 93 06/12/19 00:00 77 06/11/19 22:50 95 Nasal Cannula 2.0 28 06/11/19 22:49 76 18 95 Nasal Cannula 2.0 28 06/11/19 22:01 78 135/78 06/11/19 21:00 Room Air 06/11/19 20:00 98.3 77 18 132/78 (96) 95 06/11/19 20:00 67 06/11/19 16:00 98.4 76 18 121/67 (85) 97 06/11/19 15:19 78 General Appearance: WD/WN, no apparent distress, alert EENT: PERRL/EOMI Neck: supple, no JVD Rhythm: NSR Cardiovascular: normal rate, regular rhythm, no gallop/murmur Respiratory/Chest: other - dec BS . no rales, wheezes Abdomen: non tender, soft Extremities: no swelling Intake and Output 06/11/19 06/12/19 18:59 06:59 Output Total 725 ml 1300 ml Balance -725 ml -1300 ml Output Urine Total 725 ml 1300 ml # Voids 3 3 Qiana Gil MD Jun 12, 2019 15:12
--- NOTE | 2019-06-12 16:11 | Pulmonology Progress Note ---
Assessment/Plan Assessment/Plan Pulmonary Progress Note Assessment/Plan IMPRESSION: 1. Pneumonia 2. Smoking History 3. Anemia. 4. Psychosis. 5. Psychiatric disorder. 6. Severe protein-calorie malnutrition. 7. Pulmonary fibrosis. 8. MERLYN Pleural thickening PLAN respiratory care as is antibiotics noted cards noted CT chest reviewed smoking cessation DVT prophylaxis oxygen therapy and taper impression, plan, and exam edited and reviewed in detail care discussed with RN Subjective Allergies: Coded Allergies: No Known Allergies (Unverified , 04/25/13) Subjective care noted and reviewed no new complaints Objective Vital Signs Noted Objective WDWN NAD reduced breath sounds bilaterally occasional rhonchi [id number] without MRG NABS nontender no HSM no CCE nonfocal Microbiology Date/Time Source Procedure Growth Status 06/07/19 18:10 Blood Blood Culture - Preliminary NO GROWTH AFTER 24 HOURS Resulted 06/07/19 17:55 Blood Blood Culture - Preliminary NO GROWTH AFTER 24 HOURS Resulted Laboratory Tests Noted Current Medications Medications (Trade) Dose Ordered Sig/Carlito Route PRN Reason Start Time Stop Time Status Last Admin Dose Admin Albuterol/ Ipratropium (Albuterol/ Ipratropium) 3 ml Q6HRT PRN HHN Shortness of Breath 06/08/19 00:00 06/13/19 00:00 06/08/19 09:50 Aspirin (ASA) 81 mg DAILY ORAL 06/08/19 09:00 07/08/19 08:59 06/08/19 08:59 Ceftriaxone Sodium 1 gm/ Dextrose 55 ml @ 110 mls/hr Q24H IVPB 06/08/19 18:00 06/15/19 17:59 06/08/19 18:05 Clozapine (Clozaril) 200 mg QHS ORAL 06/08/19 21:00 06/15/19 20:59 06/08/19 21:20 Diltiazem HCl (Cardizem) 30 mg EVERY 8 HOURS ORAL 06/08/19 18:15 07/08/19 18:14 Divalproex Sodium (Depakote) 500 mg EVERY 12 HOURS ORAL 06/08/19 09:00 07/08/19 08:59 06/08/19 21:19 Docusate Sodium (Colace) 100 mg TWICE A DAY ORAL 06/08/19 09:00 07/08/19 08:59 06/08/19 17:59 Heparin Sodium (Porcine) (Heparin 5000 units/ml) 5,000 units EVERY 12 HOURS SUBQ 06/08/19 09:00 07/08/19 08:59 06/08/19 21:24 Levofloxacin (Levaquin) 250 mg DAILY ORAL 06/09/19 09:00 06/16/19 08:59 Nicotine (Nicoderm) 1 patch Q24H TDERMAL 06/08/19 13:30 07/08/19 13:29 06/08/19 13:08 Sodium Chloride 1,000 ml @ 110 mls/hr Q9H6M IV 06/08/19 12:42 07/08/19 12:41 06/09/19 06:49 Tamsulosin HCl (Flomax) 0.4 mg BEDTIME ORAL 06/08/19 21:00 07/08/19 20:59 06/08/19 21:20 Subjective ROS Limited/Unobtainable: No Allergies: Coded Allergies: No Known Allergies (Unverified , 04/25/13) Objective Last 24 Hour Vital Signs Date Time Temp Pulse Resp B/P (MAP) Pulse Ox O2 Delivery O2 Flow Rate FiO2 06/12/19 13:12 72 119/71 06/12/19 13:10 72 119/71 (87) 06/12/19 12:00 97.7 75 17 143/66 (91) 100 06/12/19 11:53 72 06/12/19 11:35 66 20 92 Room Air 21 06/12/19 11:34 92 Room Air 21 06/12/19 08:24 75 102/58 (73) 06/12/19 08:00 97.6 76 19 89/58 (68) 95 06/12/19 07:57 72 06/12/19 07:24 Room Air 06/12/19 06:09 75 113/70 06/12/19 04:00 68 06/12/19 04:00 98.3 75 18 113/70 (84) 93 06/12/19 00:00 98.3 81 18 109/66 (80) 93 06/12/19 00:00 77 06/11/19 22:50 95 Nasal Cannula 2.0 28 06/11/19 22:49 76 18 95 Nasal Cannula 2.0 28 06/11/19 22:01 78 135/78 11/16/19 21:00 Room Air 06/11/19 20:00 98.3 77 18 132/78 (96) 95 06/11/19 20:00 67 Intake and Output 06/11/19 06/12/19 18:59 06:59 Output Total 725 ml 1300 ml Balance -725 ml -1300 ml Output Urine Total 725 ml 1300 ml # Voids 3 3 Current Medications Medications (Trade) Dose Ordered Sig/Carlito Route PRN Reason Start Time Stop Time Status Last Admin Dose Admin Albuterol/ Ipratropium (Albuterol/ Ipratropium) 3 ml Q6HRT PRN HHN Shortness of Breath 06/12/19 09:30 06/17/19 09:30 Aspirin (ASA) 81 mg DAILY ORAL 06/08/19 09:00 07/08/19 08:59 06/12/19 08:25 Ceftriaxone Sodium 1 gm/ Dextrose 55 ml @ 110 mls/hr Q24H IVPB 06/08/19 18:00 06/15/19 17:59 06/11/19 17:01 Clozapine (Clozaril) 200 mg QHS ORAL 06/08/19 21:00 06/15/19 20:59 06/11/19 20:25 Diltiazem HCl (Cardizem) 30 mg EVERY 8 HOURS ORAL 06/08/19 18:15 07/08/19 18:14 06/12/19 13:12 Divalproex Sodium (Depakote) 500 mg EVERY 12 HOURS ORAL 06/08/19 09:00 07/08/19 08:59 06/12/19 08:26 Docusate Sodium (Colace) 100 mg TWICE A DAY ORAL 06/08/19 09:00 07/08/19 08:59 06/12/19 08:26 Guaifenesin/ Dextromethorphan (Robitussin DM Syrup) 10 ml Q4H PRN ORAL For Cough 06/09/19 09:00 07/09/19 08:59 06/10/19 14:39 Heparin Sodium (Porcine) (Heparin 5000 units/ml) 5,000 units EVERY 12 HOURS SUBQ 06/08/19 09:00 07/08/19 08:59 06/12/19 08:27 Levofloxacin (Levaquin) 250 mg DAILY ORAL 06/09/19 09:00 06/16/19 08:59 06/12/19 08:26 Mirtazapine (Remeron) 15 mg BEDTIME ORAL 06/11/19 21:00 07/11/19 20:59 06/11/19 20:25 Nicotine (Nicoderm) 1 patch Q24H TDERMAL 06/08/19 13:30 07/08/19 13:29 06/12/19 13:12 Sodium Chloride 1,000 ml @ 75 mls/hr [id number] IV 06/09/19 14:23 07/09/19 14:22 06/12/19 06:09 Tamsulosin HCl (Flomax) 0.4 mg BEDTIME ORAL 06/08/19 21:00 07/08/19 20:59 06/11/19 20:25 Rajeev Turner MD Jun 12, 2019 16:11
[2019-06-12] MEDS: cefTRIAXone 1 GM in D5W 55 ML IVPB SCH (16:50)
--- NOTE | 2019-06-12 19:12 | NUR ---
HAND-OFF: Report given to UNA Coronado. Pt stable.
[2019-06-12] MEDS: Tamsulosin 0.4mg cap ORAL SCH (20:36)
[2019-06-13] VITALS (7 sets, daily range): BP systolic 107–128; BP diastolic 63–83
--- NOTE | 2019-06-13 04:00 | NUR ---
NURSE NOTES: Patient in bed asleep with no S/S of distress noted. Will continue to monitor.
[2019-06-13] MEDS: dilTIAZem HCl 30mg tab ORAL SCH ×2 (06:00→13:00)
--- NOTE | 2019-06-13 07:05 | NUR ---
HAND-OFF: Report given to Angelika Babb RN. Patient in bed with no S/S of distress noted. Endorsed plan of care.
--- NOTE | 2019-06-13 07:25 | NUR ---
NURSE NOTES: Received report from UNA Coronado. Pt in bed, asleep, respirations regular and unlabored, bed in lowest position, call light within reach, no apparent distress noted, bed alarm on, urinal within reach.
[2019-06-13] MEDS: Depakote 500mg tab ORAL SCH ×2 (08:25→20:19)
[2019-06-13] MEDS: Docusate 100mg cap ORAL SCH ×2 (08:25→17:19)
[2019-06-13] MEDS: Aspirin Baby 81mg ORAL SCH (08:25)
[2019-06-13] MEDS: Heparin 5000 units/ml inj SUBQ SCH ×2 (08:26→20:20)
--- NOTE | 2019-06-13 11:19 | Infectious Diseases Prog Note ---
Assessment/Plan Assessment/Plan antibiotics : ceftriaxone, levoquin A 1. pneumonia 2. COPD 3. pulmonary fibrosis 4. lung cancer 5. hypertension P 1. continue levoquin 3 more days 2. d/c ceftriaxone 3. will follow up cultures Subjective Constitutional: Denies: fever, chills Respiratory: Reports: productive cough - decreased; Denies: shortness of breath Gastrointestinal/Abdominal: Reports: nausea; Denies: vomiting, diarrhea Musculoskeletal: Denies: pain Allergies: Coded Allergies: No Known Allergies (Unverified , 04/25/13) Objective Vital Signs Last 24 Hour Vital Signs Date Time Temp Pulse Resp B/P (MAP) Pulse Ox O2 Delivery O2 Flow Rate FiO2 06/13/19 08:00 97.5 78 20 114/64 (81) 92 06/13/19 07:50 93 Room Air 21 06/13/19 07:50 76 16 93 Room Air 21 06/13/19 07:42 73 06/13/19 07:35 Room Air 06/13/19 06:00 80 99/68 06/13/19 04:00 98.0 71 21 122/68 (86) 96 06/13/19 04:00 75 06/13/19 00:00 81 06/13/19 00:00 97.5 70 19 115/75 (88) 96 06/12/19 21:25 66 124/80 06/12/19 21:00 Room Air 06/12/19 20:00 86 06/12/19 20:00 98.3 66 18 124/80 (95) 96 06/12/19 16:00 97.5 73 20 97/54 (68) 98 06/12/19 15:30 91 06/12/19 13:12 72 119/71 06/12/19 13:10 72 119/71 (87) 06/12/19 12:00 97.7 75 17 143/66 (91) 100 06/12/19 11:53 72 06/12/19 11:35 66 20 92 Room Air 21 06/12/19 11:34 92 Room Air 21 Height (Feet): 6 Height (Inches): 0.00 Weight (Pounds): 167 Respiratory/Chest: lungs clear Cardiovascular: normal rate, regular rhythm, no gallop/murmur Abdomen: soft, non tender Extremities: no edema Current Medications Medications (Trade) Dose Ordered Sig/Carlito Route PRN Reason Start Time Stop Time Status Last Admin Dose Admin Albuterol/ Ipratropium (Albuterol/ Ipratropium) 3 ml Q6HRT PRN HHN Shortness of Breath 06/12/19 09:30 06/17/19 09:30 Aspirin (ASA) 81 mg DAILY ORAL 06/08/19 09:00 07/08/19 08:59 06/13/19 08:25 Ceftriaxone Sodium 1 gm/ Dextrose 55 ml @ 110 mls/hr Q24H IVPB 06/08/19 18:00 06/15/19 17:59 06/12/19 16:50 Clozapine (Clozaril) 200 mg QHS ORAL 06/08/19 21:00 06/15/19 20:59 06/12/19 20:36 Diltiazem HCl (Cardizem) 30 mg EVERY 8 HOURS ORAL 06/08/19 18:15 07/08/19 18:14 06/12/19 21:25 Divalproex Sodium (Depakote) 500 mg EVERY 12 HOURS ORAL 06/08/19 09:00 07/08/19 08:59 06/13/19 08:25 Docusate Sodium (Colace) 100 mg TWICE A DAY ORAL 06/08/19 09:00 07/08/19 08:59 06/13/19 08:25 Guaifenesin/ Dextromethorphan (Robitussin DM Syrup) 10 ml Q4H PRN ORAL For Cough 06/09/19 09:00 07/09/19 08:59 06/10/19 14:39 Heparin Sodium (Porcine) (Heparin 5000 units/ml) 5,000 units EVERY 12 HOURS SUBQ 06/08/19 09:00 07/08/19 08:59 06/13/19 08:26 Levofloxacin (Levaquin) 250 mg DAILY ORAL 06/09/19 09:00 06/16/19 08:59 06/13/19 08:25 Mirtazapine (Remeron) 15 mg BEDTIME ORAL 06/11/19 21:00 07/11/19 20:59 06/12/19 20:36 Nicotine (Nicoderm) 1 patch Q24H TDERMAL 06/08/19 13:30 07/08/19 13:29 11/17/19 13:12 Sodium Chloride 1,000 ml @ 75 mls/hr [id number] IV 06/09/19 14:23 07/09/19 14:22 06/13/19 08:25 Tamsulosin HCl (Flomax) 0.4 mg BEDTIME ORAL 06/08/19 21:00 07/08/19 20:59 06/12/19 20:36 Marcus Huang MD Jun 13, 2019 11:19
--- NOTE | 2019-06-13 12:03 | Pulmonology Progress Note ---
Assessment/Plan Assessment/Plan IMPRESSION: 1. Evidence of pneumonia acute 2. Nicotine dependence. 3. Anemia. 4. Psychosis. 5. Psychiatric disorder. 6. Severe protein-calorie malnutrition. 7. Pulmonary fibrosis. PLAN respiratory care as is antibiotics noted- on levaquin cards noted smoking cessation DVT prophylaxis oxygen therapy as is impression, plan, and exam edited and reviewed in detail care discussed with RN Subjective Allergies: Coded Allergies: No Known Allergies (Unverified , 04/25/13) Subjective care noted and reviewed some congestion no wheeze Objective Last 24 Hour Vital Signs Date Time Temp Pulse Resp B/P (MAP) Pulse Ox O2 Delivery O2 Flow Rate FiO2 06/13/19 11:28 96.7 76 20 111/73 (86) 96 06/13/19 08:00 97.5 78 20 114/64 (81) 92 06/13/19 07:50 93 Room Air 21 06/13/19 07:50 76 16 93 Room Air 21 06/13/19 07:42 73 06/13/19 07:35 Room Air 06/13/19 06:00 80 99/68 06/13/19 04:00 98.0 71 21 122/68 (86) 96 06/13/19 04:00 75 06/13/19 00:00 81 06/13/19 00:00 97.5 70 19 115/75 (88) 96 06/12/19 21:25 66 124/80 06/12/19 21:00 Room Air 06/12/19 20:00 86 06/12/19 20:00 98.3 66 18 124/80 (95) 96 06/12/19 16:00 97.5 73 20 97/54 (68) 98 06/12/19 15:30 91 06/12/19 13:12 72 119/71 06/12/19 13:10 72 119/71 (87) Intake and Output 06/12/19 06/13/19 19:00 07:00 Intake Total 990 ml 240 ml Output Total 950 ml 1200 ml Balance 40 ml -960 ml Intake Oral 240 ml 240 ml IV Total 750 ml Output Urine Total 950 ml 1200 ml # Voids 3 Objective WDWN NAD reduced breath sounds bilaterally with crackles at the bases [id number] without MRG NABS nontender no HSM no CCE nonfocal reviewed and edited Current Medications Medications (Trade) Dose Ordered Sig/Carlito Route PRN Reason Start Time Stop Time Status Last Admin Dose Admin Albuterol/ Ipratropium (Albuterol/ Ipratropium) 3 ml Q6HRT PRN HHN Shortness of Breath 06/12/19 09:30 06/17/19 09:30 Aspirin (ASA) 81 mg DAILY ORAL 06/08/19 09:00 07/08/19 08:59 06/13/19 08:25 Clozapine (Clozaril) 200 mg QHS ORAL 06/08/19 21:00 06/15/19 20:59 06/12/19 20:36 Diltiazem HCl (Cardizem) 30 mg EVERY 8 HOURS ORAL 06/08/19 18:15 07/08/19 18:14 06/12/19 21:25 Divalproex Sodium (Depakote) 500 mg EVERY 12 HOURS ORAL 06/08/19 09:00 07/08/19 08:59 06/13/19 08:25 Docusate Sodium (Colace) 100 mg TWICE A DAY ORAL 06/08/19 09:00 07/08/19 08:59 06/13/19 08:25 Guaifenesin/ Dextromethorphan (Robitussin DM Syrup) 10 ml Q4H PRN ORAL For Cough 06/09/19 09:00 07/09/19 08:59 06/10/19 14:39 Heparin Sodium (Porcine) (Heparin 5000 units/ml) 5,000 units EVERY 12 HOURS SUBQ 06/08/19 09:00 07/08/19 08:59 06/13/19 08:26 Levofloxacin (Levaquin) 250 mg DAILY ORAL 06/09/19 09:00 06/16/19 08:59 06/13/19 08:25 Mirtazapine (Remeron) 15 mg BEDTIME ORAL 06/11/19 21:00 07/11/19 20:59 06/12/19 20:36 Nicotine (Nicoderm) 1 patch Q24H TDERMAL 06/08/19 13:30 07/08/19 13:29 06/12/19 13:12 Sodium Chloride 1,000 ml @ 75 mls/hr [id number] IV 06/09/19 14:23 07/09/19 14:22 06/13/19 08:25 Tamsulosin HCl (Flomax) 0.4 mg BEDTIME ORAL 06/08/19 21:00 07/08/19 20:59 06/12/19 20:36 James Morrison MD Jun 13, 2019 12:03
--- NOTE | 2019-06-13 13:01 | NUR ---
CASE MANAGEMENT:REVIEW 06/13/19 SI: PNA. COPD. LUNG CANCER PSYCHOSIS 96.7 76 20 111/73 93% ON RA IS: LEVAQUIN PO QD REMERON PO QHS IVF@75/HR FLOMAX PO QHS CARDIZEM PO Q8HRS ASA PO QD HEPARIN SQ Q12 : TELEMETRY STATUS DCP: FROM HOME PLAN: DC IV ANTIBIOTICS CONTINUE LEVAQUIN PO X 3 MORE DAYS
--- NOTE | 2019-06-13 13:14 | NUR ---
DISCHARGE PLANNING MESSAGE LEFT FOR DR REESE REGARDING DISCHARGE....AWAITING RESPONSE
--- NOTE | 2019-06-13 13:22 | General Progress Note ---
Assessment/Plan Status: stable, progressing Assessment/Plan: 1. Emerging from septic shock due to #2. 2. LL Pneumonia. 3. Lung CA. Under control post immuno Rx. 4. Extensive Lung Emphysema. 5. Cachexia. 6. Fusiform Infrarenal AAA. Aortic diameter unchanged 4.2 cm. 7. h/o Aortitis. Able to ambulate. DC to B+C. Subjective Allergies: Coded Allergies: No Known Allergies (Unverified , 04/25/13) Subjective Less SOB less cough. Able to ambulate with PT. Objective Last 24 Hour Vital Signs Date Time Temp Pulse Resp B/P (MAP) Pulse Ox O2 Delivery O2 Flow Rate FiO2 06/13/19 13:00 74 107/63 06/13/19 13:00 74 107/63 (78) 06/13/19 11:41 71 06/13/19 11:28 96.7 76 20 111/73 (86) 96 06/13/19 08:00 97.5 78 20 114/64 (81) 92 06/13/19 07:50 93 Room Air 21 06/13/19 07:50 76 16 93 Room Air 21 06/13/19 07:42 73 06/13/19 07:35 Room Air 06/13/19 06:00 80 99/68 06/13/19 04:00 98.0 71 21 122/68 (86) 96 06/13/19 04:00 75 06/13/19 00:00 81 06/13/19 00:00 97.5 70 19 115/75 (88) 96 06/12/19 21:25 66 124/80 06/12/19 21:00 Room Air 06/12/19 20:00 86 06/12/19 20:00 98.3 66 18 124/80 (95) 96 06/12/19 16:00 97.5 73 20 97/54 (68) 98 06/12/19 15:30 91 Intake and Output 06/12/19 06/13/19 18:59 06:59 Intake Total 990 ml 240 ml Output Total 950 ml 1200 ml Balance 40 ml -960 ml Intake Oral 240 ml 240 ml IV Total 750 ml Output Urine Total 950 ml 1200 ml # Voids 3 Height (Feet): 6 Height (Inches): 0.00 Weight (Pounds): 167 Objective Cachechtic. CV RR Lungs B Ronchi Abd SNT. BS + E No edema ++ Clubbing Mohinder Foster MD Jun 13, 2019 13:22
[2019-06-13] MEDS ORDERED: LEVAQUIN500 MG ORAL (14:13)
--- NOTE | 2019-06-13 14:22 | NUR ---
NURSE NOTES: RN notified Dr. Foster that medication reconciliation for discharge still needs to be completed in order for pt to DC today Addendum: 06/13/19 at 1438 by JACKIE COVARRUBIAS RN NURSE NOTES: MD Foster stated he called pt's medications into pt's pharmacy.
[2019-06-13] MEDS ORDERED: LEVOFLOXACIN250 MG ORAL ×2 (14:24→14:25)
--- NOTE | 2019-06-13 17:45 | Progress Note ---
DATE: 06/13/2019 SUBJECTIVE: The patient is doing well. Eating better. Improved. No behavior issues noted. Calm, cooperative. Overall improved. Less depressed. MENTAL STATUS EXAMINATION: The patient is alert, oriented times self, place, and situation. Mood is less depressed. Affect is full range, congruent with mood. Thought process, linear and goal oriented. Thought content, no suicidal or homicidal ideation. Cognition is intact and forgetful. Thought process is concrete. Thought content, no suicidal or homicidal ideation. ASSESSMENT: Major depressive disorder. PLAN: 1. We will continue the Remeron. 2. Provide the patient with reality orientation and supportive therapy. Swapnil Simpson M.D. DR: OG JOB#: [id number] CC:
--- NOTE | 2019-06-13 18:11 | Cardiology Progress Note ---
Assessment/Plan Assessment/Plan changed his diltiazem to long acting 120 mg daily Subjective Subjective sleeping comfortably. when aroused, reports feeling better, less dyspnea, no chest pain Objective Last 24 Hour Vital Signs Date Time Temp Pulse Resp B/P (MAP) Pulse Ox O2 Delivery O2 Flow Rate FiO2 06/13/19 15:24 97.2 79 20 128/83 (98) 98 06/13/19 15:09 77 06/13/19 13:00 74 107/63 06/13/19 13:00 74 107/63 (78) 06/13/19 11:41 71 06/13/19 11:28 96.7 76 20 111/73 (86) 96 06/13/19 08:00 97.5 78 20 114/64 (81) 92 06/13/19 07:50 93 Room Air 21 06/13/19 07:50 76 16 93 Room Air 21 06/13/19 07:42 73 06/13/19 07:35 Room Air 06/13/19 06:00 80 99/68 06/13/19 04:00 98.0 71 21 122/68 (86) 96 06/13/19 04:00 75 06/13/19 00:00 81 06/13/19 00:00 97.5 70 19 115/75 (88) 96 06/12/19 21:25 66 124/80 06/12/19 21:00 Room Air 06/12/19 20:00 86 06/12/19 20:00 98.3 66 18 124/80 (95) 96 General Appearance: no apparent distress EENT: PERRL/EOMI Neck: no JVD Rhythm: NSR Cardiovascular: normal rate Respiratory/Chest: crackles/rales Extremities: normal range of motion Intake and Output 06/12/19 06/13/19 18:59 06:59 Intake Total 990 ml 240 ml Output Total 950 ml 1200 ml Balance 40 ml -960 ml Intake Oral 240 ml 240 ml IV Total 750 ml Output Urine Total 950 ml 1200 ml # Voids 3 Pepper Butcher MD Jun 13, 2019 18:11
--- NOTE | 2019-06-13 19:33 | NUR ---
HAND-OFF: Report given to UNA Romero. [facility] called will be an additional 25 minutes from now before able to vegetable picker pt for DC.
--- NOTE | 2019-06-13 19:45 | NUR ---
NURSE NOTES: Pt received from UNA Valle alert and oriented x4 with no acute s/s of distress noted. IV site asymptomatic and patent on L fa 18g, saline lock. Bed in lowest position, bed alarm on. Call light and belongings within reach.
[2019-06-13] MEDS: Tamsulosin 0.4mg cap ORAL SCH (20:19)
--- NOTE | 2019-06-13 21:24 | NUR ---
NURSE NOTES: Pt discharged back to [facility] with BLS in stable condition. Belongings with patient upon discharge. IV site d/rachel and patient wristband removed as per protocol. Face sheet and paperwork handed to BLS. Per [facility], no need for report or faxed paperwork. No wounds noted upon discharge. VS stable.
--- NOTE | 2019-06-14 08:09 | Discharge Summary ---
Discharge Summary Discharge Summary _ Chest summary 1112 DATE OF ADMISSION 06/07/2019 DATE OF DISCHARGE: 06/13/2019 DISCHARGED BY: Dr. Foster REASON FOR ADMISSION: [] 54 years old male with past medical history of COPD, hypertension, seizure disorder, history of aortic aneurysm, descending aortic valve otitis, hypertension, presented from the alf facility for evaluation due to shortness of breath which started for 1 day. Patient uses oxygen intermittently at the facility. No reported fever or chills. No cough. Upon evaluation patient was tachycardic and tachypneic blood pressure was on the low side 86/53 patient is approximately 100% on 3 L of oxygen via nasal cannula. Laboratory work-up revealed significant leukocytosis WBC 20, hemoglobin 11.9 hematocrit 34.3, platelet count 199. Sodium 132, BUN 16, creatinine 1.8. Glucose 107. Troponin negative proBNP 1062. Albumin 2.1. ABG was stable on 2 L of oxygen via nasal cannula. Urinalysis revealed no evidence of urinary tract infection. Chest x-ray demonstrated left upper lobe pneumonia versus tumor and evidence of pulmonaryfibrosis. Patient subsequently admitted for further management CONSULTANTS: railroad signal operator Dr. Connell neurologist pulmonary Dr. Morrison ID specialist Dr. Petty GI specialist head grower wildlife biologist/oncologist surgery psychiatrist [facility]SE: [] Patient admitted to telemetry floor started on the IV fluids and empiric antibiotics. Hemodynamic status was closely monitored. Blood pressure improved with IV hydration no need for pressors. Supplemental oxygen titrated to keep pulse oximetry above 92%. Nebulizing treatment with bronchodilator provided. DVT prophylaxis provided. PT scan of the chest abdomen and pelvis revealed airspace consolidative opacity in the left upper lobe consistent with a left upper lobe pneumonia. Extensive chronic lung disease characterized by pulmonary fibrosis and honeycombing as well as upper lobe emphysema. 4.2 cm fusiform aneurysm of the abdominal aorta Moderate occult impaction and retention. Small left inguinal hernia containing fat. Ectatic provided as needed. Patient was counseled on smoking cessation. Patient started nicotine patch blood cultures were negative. Sputum culture was negative. Patient with venous duplex bilateral lower extremity revealed no evidence of acute DVT. Follow-up chest x-ray revealed no changes over the last few days. Patient will need to complete antibiotics at the facility continue antibiotic at the facility to complete the course. Medicaid Eligibility Specialist followed. Patient noted to have SVT on telemetry. Patient started on Cardizem. Medicaid Eligibility Specialist recommended to avoid albuterol to avoid further SVT episode. Patient started on low-dose of diltiazem. Blood pressure was stable antiplatelet therapy with aspirin continued. Bowel regimen instituted. Psychiatry seen and evaluated patient for psychiatric condition patient had major depressive disorder. Remeron was continued. Reality orientation supportive therapy provided. FINAL DIAGNOSES: 1. [] Acute pneumonia left-sided pneumonia Septic shock History of lung CA status post immunotherapy COPD Pulmonary fibrosis Extensive emphysema Seizure disorder Daily for infrarenal aortic abdominal aneurysm History of gout type history of cholelithiasis brought by immunotherapy and treated successfully twice with intravenous steroids. Nicotine dependency Anemia Psychiatric disorder Severe protein calorie malnutrition Major depressive disorder DISCHARGE MEDICATIONS: See Medication Reconciliation list. DISCHARGE INSTRUCTIONS: [] Patient was discharged to the alf facility. Follow up with medical doctor at the facility. I have been assigned to dictate discharge summary for this account. I was not involved in the patient's management. Ilene Crane NP Jun 14, 2019 08:09
[2019-06-14] MEDS ORDERED: dilTIAZem HCl CD 120mg cap ORAL SCH (09:00)
== END 2019-06-13 21:25 | disposition home or self-care (01) | DRG 871 ==
LOC: EDBD 17:50 → EMR 18:11 → EDBEDREQ 21:09 → 2E 21:25 → EDBEDREQ 21:56
DX: A41.9 Sepsis, unspecified organism (principal); J18.9 Pneumonia, unspecified organism; E43 Unspecified severe protein-calorie malnutrition; R65.21 Severe sepsis with septic shock; I47.1 Supraventricular tachycardia; R62.7 Adult failure to thrive; Z85.118 Personal history of other malignant neoplasm of bronchus and lung; G40.909 Epilepsy, unspecified, not intractable, without status epilepticus; J84.10 Pulmonary fibrosis, unspecified; J43.9 Emphysema, unspecified; I71.4 Abdominal aortic aneurysm, without rupture; F17.200 Nicotine dependence, unspecified, uncomplicated; M10.9 Gout, unspecified; D64.9 Anemia, unspecified; F99 Mental disorder, not otherwise specified; F32.9 Major depressive disorder, single episode, unspecified; N40.0 Benign prostatic hyperplasia without lower urinary tract symptoms; I11.9 Hypertensive heart disease without heart failure; I73.9 Peripheral vascular disease, unspecified; F41.9 Anxiety disorder, unspecified
CPT/HCPCS: 36415; 36600; 71045; 71250; 74176; 80053; 81003; 82164; 82803; 82962; 83605; 83735; 83880; 84100; 84484; 85007; 85025; 87040; 87070; 87081; 87205; 93005; 93306; 93971; 94640; 94664; 96365; 96375; 99285; J7030; J7620

== ENCOUNTER 2019-12-23 12:23 | Inpatient (IN) | payer MEDICARE, OTHER ==
[~2019-12-23] VITALS: Ht 185.4 cm; Wt 76.4 kg
[~2019-12-23 12:23] MED LIST changes: +CLOZAPINE200 MG PO; +LEVAQUIN500 MG ORAL; +LEVOFLOXACIN250 MG ORAL; +NEXIUM20 MG ORAL
--- NOTE | 2019-12-23 12:52 | Emergency Room Report ---
History of Present Illness General Chief Complaint: Dyspnea/Respdistress Source: Patient Present Illness HPI 64 years old male with past medical history of COPD, hypertension, seizure disorder, history of aortic aneurysm, from a [facility] presents with shortness of breath, dyspnea, x2 weeks increased sputum production, no fevers no chills no chest pain no known aggravating relieving factors severity is moderate, constant patient presents for evaluation and treatment Allergies: Coded Allergies: No Known Allergies (Unverified , 12/23/19) COVID-19 Screening Contact w/high risk pt: No Recent Travel to affected area: No Experienced COVID-19 symptoms?: No COVID-19 symptoms experienced: Shortness of Breath COVID-19 Testing performed PUBLIC HEALTH OFFICER: No Patient History Past Medical History: see triage record Reviewed Nursing Documentation: PMH: Agreed; PSxH: Agreed Nursing Documentation-PMH Hx Cardiac Problems: Yes Hx Hypertension: Yes Hx COPD: Yes Hx Cancer: Yes Hx Gastrointestinal Problems: Yes Hx Neurological Problems: Yes Hx Seizures: Yes Review of Systems All Other Systems: negative except mentioned in HPI Physical Exam Vital Signs Date Time Temp Pulse Resp B/P (MAP) Pulse Ox O2 Delivery O2 Flow Rate FiO2 12/23/19 12:24 97.9 105 25 110/60 (77) 91 Nasal Cannula 3.0 Sp02 EP Interpretation: reviewed, abnormal - Reduced SaO2 requiring supplemental oxygen General Appearance: alert, moderate distress Head: normocephalic, atraumatic Eyes: bilateral eye PERRL, bilateral eye EOMI ENT: uvula midline, dry mucus membranes Neck: supple, thyroid normal, supple/symm/no masses Respiratory: decreased breath sounds, accessory muscle use, rhonchi Cardiovascular #1: normal peripheral pulses, no edema, no gallop, no murmur, tachycardia Gastrointestinal: non tender, soft, no guarding, no rebound Musculoskeletal: normal inspection Neurologic: alert, oriented x3 Psychiatric: mood/affect normal Skin: no rash, warm/dry Medical Decision Making Diagnostic Impression: Primary Impression: COPD (chronic obstructive pulmonary disease) Qualified Codes: J44.9 - Chronic obstructive pulmonary disease, unspecified Additional Impressions: Respiratory distress SOB (shortness of breath) Pneumonia Qualified Codes: J18.9 - Pneumonia, unspecified organism Suspected 2019 novel coronavirus infection ER Course 64-year-old male presents with dyspnea shortness of breath, differential diagnosis includes COPD exacerbation, pneumonia, ACS Broad-spectrum antibiotics, fluids, COPD medication started, patient given Combivent as well as methylprednisone. Plan for admission Patient admitted to Laboratory Tests Test 12/23/19 12:44 12/23/19 12:45 Venous Blood pH 7.326 Venous Blood Partial Pressure CO2 49.3 Venous Blood Partial Pressure O2 42.9 Venous Blood HCO3 25.2 Venous Blood Total Carbon Dioxide 49.3 Venous Blood Base Excess -1.4 Venous Blood Carboxyhemoglobin 2.3 % (0.5-1.5) H Methemoglobin 0.3 White Blood Count 9.9 K/UL (4.8-10.8) Red Blood Count 4.81 M/UL (4.70-6.10) Hemoglobin 14.7 G/DL (14.2-18.0) Hematocrit 43.7 % (42.0-52.0) Mean Corpuscular Volume 91 FL (80-99) Mean Corpuscular Hemoglobin 30.6 PG (27.0-31.0) Mean Corpuscular Hemoglobin Concent 33.7 G/DL (32.0-36.0) Red Cell Distribution Width 12.9 % (11.6-14.8) Platelet Count 145 K/UL (150-450) L Mean Platelet Volume 6.6 FL (6.5-10.1) Neutrophils (%) (Auto) % (45.0-75.0) Lymphocytes (%) (Auto) % (20.0-45.0) Monocytes (%) (Auto) % (1.0-10.0) Eosinophils (%) (Auto) % (0.0-3.0) Basophils (%) (Auto) % (0.0-2.0) Differential Total Cells Counted 100 Neutrophils % (Manual) 84 % (45-75) H Lymphocytes % (Manual) 7 % (20-45) L Monocytes % (Manual) 7 % (1-10) Eosinophils % (Manual) 2 % (0-3) Basophils % (Manual) 0 % (0-2) Band Neutrophils 0 % (0-8) Platelet Estimate Decreased L Platelet Morphology Normal Sodium Level 137 MMOL/L (136-145) Potassium Level 3.4 MMOL/L (3.5-5.1) L Chloride Level 101 MMOL/L (98-107) Carbon Dioxide Level 27 MMOL/L (21-32) Anion Gap 9 mmol/L (5-15) Blood Urea Nitrogen 15 mg/dL (7-18) Creatinine 1.6 MG/DL (0.55-1.30) H Estimated Glomerular Filtration Rate 43.6 mL/min (>60) Glucose Level 128 MG/DL (74-106) H Lactic Acid Level Pending Calcium Level 10.0 MG/DL (8.5-10.1) Phosphorus Level Pending Magnesium Level Pending Total Bilirubin Pending Aspartate Amino Transferase (AST) Pending Alanine Aminotransferase (ALT) Pending Alkaline Phosphatase Pending Total Creatine Kinase Pending Creatine Kinase MB Pending Troponin I Pending Pro-B-Type Natriuretic Peptide Pending Total Protein Pending Albumin Pending Globulin Pending Lipase Pending EKG Diagnostic Results EKG Time: 12:37 EP Interpretation: NSR, rate 97, QTc 416, no acute ST elevations, left axis deviation Rhythm Strip Diag. Results Rhythm Strip Time: 12:49 EP Interpretation: yes Rate: 103 Rhythm: other - Sinus tachycardia Chest X-Ray Diagnostic Results Chest X-Ray Diagnostic Results : Chest X-Ray Ordered: Yes # of Views/Limited/Complete: 1 View Indication: Shortness of Breath EP Interpretation: Yes Interpretation: other - Left upper lobe consolidation Impression: Other - Pneumonia Electronically Signed by: Master Go MD Last Vital Signs Date Time Temp Pulse Resp B/P (MAP) Pulse Ox O2 Delivery O2 Flow Rate FiO2 12/23/19 12:24 97.9 105 25 110/60 (77) 91 Nasal Cannula 3.0 Disposition: ADMITTED INPATIENT Condition: Serious Master Go MD December 23, 2019 12:52
[2019-12-23] MEDS ORDERED: Solu-MEDROL 125mg Inj IVP ONE (13:00)
[2019-12-23] MEDS ORDERED: Vancomycin 1 GM in NS 275 ML IV ONE (13:00)
[2019-12-23] MEDS ORDERED: Cefepime HCl 2 GM in NS 110 ML IV ONE (13:00)
[2019-12-23 13:08] LABS: HEMATOCRIT 43.7 % (42.0-52.0); HEMOGLOBIN 14.7 G/DL (14.2-18.0); MEAN CORPUSCULAR VOLUME 91 FL (80-99); PLATELET COUNT 145 K/UL (150-450); RED BLOOD COUNT 4.81 M/UL (4.70-6.10); RED CELL DISTRIBUTION WIDTH 12.9 % (11.6-14.8); WHITE BLOOD COUNT 9.9 K/UL (4.8-10.8)
[2019-12-23 13:26] LABS: ANION GAP 9 mmol/L (5-15); BLOOD UREA NITROGEN 15 mg/dL (7-18); CARBON DIOXIDE 27 MMOL/L (21-32); CHLORIDE 101 MMOL/L (98-107); CREATININE 1.6 MG/DL (0.55-1.30); POTASSIUM 3.4 MMOL/L (3.5-5.1); SODIUM 137 MMOL/L (136-145)
[2019-12-23 13:36] LABS: ALANINE AMINOTRANSFERASE 21 U/L (12-78); ALBUMIN 2.4 G/DL (3.4-5.0); ALBUMIN/GLOBULIN RATIO 0.4 (1.0-2.7); ALKALINE PHOSPHATASE 87 U/L (46-116); ASPARTATE AMINO TRANSFERASE 18 U/L (15-37); BILIRUBIN,TOTAL 0.3 MG/DL (0.2-1.0); CKMB 0.9 NG/ML (0.0-3.6); CREATINE KINASE 98 U/L (26-308); PHOSPHORUS 3.2 MG/DL (2.5-4.9)
[2019-12-23 14:21] VITALS: BP 110/60
[2019-12-23 16:08] LABS: APPEARANCE,URINE CLEAR; BILIRUBIN, URINE NEGATIVE (NEGATIVE); GLUCOSE, URINE (UA) NEGATIVE (NEGATIVE); KETONES,URINE 2+ (NEGATIVE); LEUKOCYTE ESTERASE ,URINE NEGATIVE (NEGATIVE); NITRITE,URINE NEGATIVE (NEGATIVE); PH,URINE 6 (4.5-8.0); PROTEIN,URINE 2+ (NEGATIVE); UROBILINOGEN,URINE NORMAL MG/DL (0.0-1.0)
[2019-12-23 16:10] LABS: COLOR,URINE YELLOW
[2019-12-23 16:17] VITALS: BP 119/70
--- NOTE | 2019-12-23 18:48 | Diagnostic Imaging Report ---
Indication: Shortness of breath Technique: One view of the chest Comparison: 06/09/2019 Findings: Generalized reticular interstitial opacities appear similar to the previous study. More prominent reticular and airspace opacities in the periphery of the right upper lobe are probably also unchanged, allowing for differences in exposure technique. There is an area of pleural thickening with an underlying spiculated opacity in the left upper lobe. The central portion of the spiculated opacity appears slightly denser and more prominent than on the previous study. Impression: Spiculated opacity with underlying pleural thickening in the left upper lobe is somewhat more prominent than on the prior exam of 06/09/2019. This could represent an area of enlarging neoplasm ordinary of acute infiltrate. Correlate with medical history findings Other stable findings as described, likely chronic
--- NOTE | 2019-12-23 19:35 | History & Physical ---
History and Physical History & Physicial [id number] Guillaume Huynh MD December 23, 2019 19:35
[2019-12-23 20:00] VITALS: BP 101/64
[2019-12-23] MEDS ORDERED: Heparin 5000 units/ml inj SUBQ SCH (21:00)
[2019-12-23] MEDS: Tamsulosin 0.4mg cap ORAL SCH (21:36)
[2019-12-23] MEDS: Docusate 100mg cap ORAL SCH (21:36)
[2019-12-23] MEDS: Azithromycin 500 MG in D5W 275 ML IV SCH (21:36)
[2019-12-23] MEDS: Depakote ER 500mg tab ORAL SCH (21:36)
[2019-12-23] MEDS: Cefepime HCl 1 GM in D5W 55 ML IV SCH (21:37)
--- NOTE | 2019-12-23 23:06 | Pulmonology Progress Note ---
Subjective ROS Limited/Unobtainable: No Respiratory: Reports: shortness of breath Allergies: Coded Allergies: No Known Allergies (Unverified , 12/23/19) Objective Last 24 Hour Vital Signs Date Time Temp Pulse Resp B/P (MAP) Pulse Ox O2 Delivery O2 Flow Rate FiO2 12/23/19 20:00 97.9 83 20 101/64 (76) 98 12/23/19 17:08 98.5 104 25 135/88 95 Nasal Cannula 2.0 12/23/19 16:29 Nasal Cannula 3.0 12/23/19 16:27 86 12/23/19 16:17 96.6 87 18 119/70 (86) 93 12/23/19 14:57 88 22 99 88 22 99 12/23/19 14:21 97.9 102 25 110/60 91 Nasal Cannula 3.0 12/23/19 14:21 103 22 Nasal Cannula 3.0 12/23/19 12:24 97.9 105 25 110/60 (77) 91 Nasal Cannula 3.0 Laboratory Tests 12/23/19 12:44: Venous Blood pH 7.326, Venous Blood Partial Pressure CO2 49.3, Venous Blood Partial Pressure O2 42.9, Venous Blood HCO3 25.2, Venous Blood Total Carbon Dioxide 49.3, Venous Blood Base Excess -1.4, Venous Blood Carboxyhemoglobin 2.3H , Methemoglobin 0.3 12/23/19 12:45: White Blood Count 9.9, Red Blood Count 4.81, Hemoglobin 14.7, Hematocrit 43.7, Mean Corpuscular Volume 91, Mean Corpuscular Hemoglobin 30.6, Mean Corpuscular Hemoglobin Concent 33.7, Red Cell Distribution Width 12.9, Platelet Count 145L, Mean Platelet Volume 6.6, Neutrophils (%) (Auto) , Lymphocytes (%) (Auto) , Monocytes (%) (Auto) , Eosinophils (%) (Auto) , Basophils (%) (Auto) , Differential Total Cells Counted 100, Neutrophils % (Manual) 84H, Lymphocytes % (Manual) 7L, Monocytes % (Manual) 7, Eosinophils % (Manual) 2, Basophils % ( Manual) 0, Band Neutrophils 0, Platelet Estimate DecreasedL, Platelet Morphology Normal, Sodium Level 137, Potassium Level 3.4L, Chloride Level 101, Carbon Dioxide Level 27, Anion Gap 9, Blood Urea Nitrogen 15, Creatinine 1.6H, Estimat Glomerular Filtration Rate 43.6, Glucose Level 128H, Lactic Acid Level 1.20, Calcium Level 10.0, Phosphorus Level 3.2, Magnesium Level 2.4, Total Bilirubin 0.3, Aspartate Amino Transf (AST/SGOT) 18, Alanine Aminotransferase ( ALT/SGPT) 21, Alkaline Phosphatase 87, Total Creatine Kinase 98, Creatine Kinase MB 0.9, Creatine Kinase MB Relative Index 0.9, Troponin I 0.000, Pro-B- Type Natriuretic Peptide 890H, Total Protein 7.8, Albumin 2.4L, Globulin 5.4, Albumin/Globulin Ratio 0.4L, Lipase 40L 12/23/19 15:40: Urine Color Yellow, Urine Appearance Clear, Urine pH 6, Urine Specific [place] 1.010, Urine Protein 2+H, Urine Glucose (UA) Negative, Urine Ketones 2+H, Urine Blood 2+H, Urine Nitrite Negative, Urine Bilirubin Negative, Urine Urobilinogen Normal, Urine Leukocyte Esterase Negative, Urine RBC 2-4H, Urine WBC 0-2, Urine Squamous Epithelial Cells Occasional, Urine Bacteria Few Current Medications Medications (Trade) Dose Ordered Sig/Carlito Route PRN Reason Start Time Stop Time Status Last Admin Dose Admin Acetaminophen (Tylenol) 650 mg Q4H PRN ORAL Mild Pain (Pain Scale 1-3) 12/23/19 19:00 01/22/20 18:59 Albuterol/ Ipratropium (Combivent Respimat) 1 puff Q6HR INH 12/24/19 20:00 01/23/20 19:59 Aspirin (ASA) 81 mg DAILY NG 12/24/19 20:00 02/07/20 19:59 Azithromycin 500 mg/Dextrose 275 ml @ 275 mls/hr Q24H IV 12/23/19 20:00 12/28/19 19:59 12/23/19 21:36 Bisacodyl (Dulcolax) 10 mg DAILYPRN PRN RECTAL Constipation 12/23/19 19:00 03/22/20 18:59 Cefepime HCl 1 gm/ Dextrose 55 ml @ 110 mls/hr EVERY 12 HOURS IV 12/23/19 21:00 12/30/19 20:59 12/23/19 21:37 Clozapine (Clozaril) 100 mg QHS ORAL 12/23/19 21:00 12/30/19 20:59 12/23/19 21:36 Divalproex Sodium (Depakote ER) 500 mg EVERY 12 HOURS ORAL 12/23/19 21:00 02/06/20 20:59 12/23/19 21:36 Docusate Sodium (Colace) 100 mg EVERY 12 HOURS ORAL 12/23/19 21:00 01/22/20 20:59 12/23/19 21:36 Heparin Sodium (Porcine) (Heparin 5000 units/ml) 5,000 units EVERY 12 HOURS SUBQ 12/23/19 21:00 02/06/20 20:59 Ondansetron HCl (Zofran) 4 mg Q6H PRN IVP Nausea & Vomiting 12/23/19 19:00 01/22/20 18:59 Pantoprazole (Protonix) 40 mg DAILY ORAL 12/23/19 20:00 01/22/20 19:59 12/23/19 20:00 Sodium Chloride 1,000 ml @ 50 mls/hr Q20H IV 12/23/19 19:53 01/22/20 19:52 12/23/19 21:35 Tamsulosin HCl (Flomax) 0.4 mg BEDTIME ORAL 12/23/19 21:00 01/22/20 20:59 12/23/19 21:36 Assessment/Plan Assessment/Plan Pulmonary Consultation HPI Patient is a 64 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 Awaiting Covid 19 r/o Allergies: No Known Allergies Past Medical History: Chronic Obstructive Pulmonary Disease, Hypertension, HHD , Seizure disorder, Aortic aneurysm All Other Systems: negative except mentioned in HPI Physical Exam Vital Signs Noted Date Time Temp Pulse Resp B/P (MAP) Pulse Ox O2 Delivery O2 Flow Rate FiO2 12/23/19 12:24 97.9 105 25 110/60 (77) 91 Nasal Cannula 3.0 General Appearance: alert, some distress Head: normocephalic, atraumatic Eyes: bilateral eye PERRL, bilateral eye EOMI ENT: uvula midline, dry mucus membranes Neck: supple, thyroid normal, supple/symm/no masses Respiratory: decreased breath sounds, accessory muscle use, occasional rhonchi Cardiovascular: normal HS1, HS2, RRR, no edema, no gallop, no murmur, tachycardia Gastrointestinal: non tender, soft, no guarding, no rebound Extremities: well perfused, no edema, normal inspection Neurologic: alert, oriented x3, no focal signs Skin: no rash, warm/dry Impression: Chronic obstructive pulmonary disease exacerbation Respiratory distress Pneumonia Hypertension Seizure disorder Previous Aortic aneurysm Plan IV broad-spectrum antibiotics HHN Solumedrol O2 PRN Await cultures/viral studies [employer]OYEE [employer] Medications CT Chest PPX Laboratory Tests Test 12/23/19 12:44 12/23/19 12:45 Venous Blood pH 7.326 Venous Blood Partial Pressure CO2 49.3 Venous Blood Partial Pressure O2 42.9 Venous Blood HCO3 25.2 Venous Blood Total Carbon Dioxide 49.3 Venous Blood Base Excess -1.4 Venous Blood Carboxyhemoglobin 2.3 % (0.5-1.5) H Methemoglobin 0.3 White Blood Count 9.9 K/UL (4.8-10.8) Red Blood Count 4.81 M/UL (4.70-6.10) Hemoglobin 14.7 G/DL (14.2-18.0) Hematocrit 43.7 % (42.0-52.0) Mean Corpuscular Volume 91 FL (80-99) Mean Corpuscular Hemoglobin 30.6 PG (27.0-31.0) Mean Corpuscular Hemoglobin Concent 33.7 G/DL (32.0-36.0) Red Cell Distribution Width 12.9 % (11.6-14.8) Platelet Count 145 K/UL (150-450) L Mean Platelet Volume 6.6 FL (6.5-10.1) Neutrophils (%) (Auto) % (45.0-75.0) Lymphocytes (%) (Auto) % (20.0-45.0) Monocytes (%) (Auto) % (1.0-10.0) Eosinophils (%) (Auto) % (0.0-3.0) Basophils (%) (Auto) % (0.0-2.0) Differential Total Cells Counted 100 Neutrophils % (Manual) 84 % (45-75) H Lymphocytes % (Manual) 7 % (20-45) L Monocytes % (Manual) 7 % (1-10) Eosinophils % (Manual) 2 % (0-3) Basophils % (Manual) 0 % (0-2) Band Neutrophils 0 % (0-8) Platelet Estimate Decreased L Platelet Morphology Normal Sodium Level 137 MMOL/L (136-145) Potassium Level 3.4 MMOL/L (3.5-5.1) L Chloride Level 101 MMOL/L (98-107) Carbon Dioxide Level 27 MMOL/L (21-32) Anion Gap 9 mmol/L (5-15) Blood Urea Nitrogen 15 mg/dL (7-18) Creatinine 1.6 MG/DL (0.55-1.30) H Estimated Glomerular Filtration Rate 43.6 mL/min (>60) Glucose Level 128 MG/DL (74-106) H Lactic Acid Level Pending Calcium Level 10.0 MG/DL (8.5-10.1) Phosphorus Level Pending Magnesium Level Pending Total Bilirubin Pending Aspartate Amino Transferase (AST) Pending Alanine Aminotransferase (ALT) Pending Alkaline Phosphatase Pending Total Creatine Kinase Pending Creatine Kinase MB Pending Troponin I Pending Pro-B-Type Natriuretic Peptide Pending Total Protein Pending Albumin Pending Globulin Pending Lipase Pending EKG: NSR, rate 97, QTc 416, no acute ST elevations, left axis deviation Chest X-Ray: Left upper lobe consolidation vs scarring, possible mass Rajeev Turner MD December 23, 2019 23:06
[2019-12-24] VITALS: BP 106/68
--- NOTE | 2019-12-24 00:15 | History and Physical Report ---
DATE OF ADMISSION: 12/23/2019 REASON FOR ADMISSION: Increasing shortness of breath. HISTORY OF PRESENT ILLNESS: This is a 64-year-old white male, patient of Dr. Mohinder Foster, who is a resident of a [facility]. He has had some underlying COPD. He has been a chronic smoker and continues to smoke. He has had some increasing shortness of breath over the past 6 months, gradually has gotten worse to the point that over the past 2 weeks, it has been terrible. He has not been coughing up any yellow-greenish sputum. He has not lost much weight. Appetite has been okay and he has been brought to the emergency room of [facility] for further evaluation. Chest x-ray in the emergency room is showing evidence of a spiculated mass in the left upper lobe with possible pneumonia in that side. He denies any fever. COVID-19 was tested and is not back yet. His baseline serum creatinine being in the range of 1.1 mg/dL, has gone up to about 1.6 mg/dL. PAST MEDICAL HISTORY: Significant for severe chronic obstructive pulmonary disease secondary to heavy smoking, paranoid schizophrenia, recurrent pneumonias. 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 History of abdominal aortic aneurysm, depression, hypertensive cardiovascular disease, peripheral vascular disease, and benign prostatic hypertrophy. SOCIAL HISTORY: He has been smoking since age of 24, about a pack of cigarettes per day. Recently, he has been smoking maybe 5 to 6 cigarettes over a day over the past year or so. He is living in a [facility]. He is not and no children. FAMILY HISTORY: Noncontributory. MEDICATIONS: Prior to admission as being Depakote 1000 mg p.o. nightly, Nexium 40 mg p.o. daily, Metoprolol XL 50 mg p.o. daily, potassium chloride 20 mEq p.o. b.i.d., Flomax 0.4 mg p.o. nightly, clozapine 200 mg p.o. nightly as well as aspirin 81 mg p.o. daily. REVIEW OF SYSTEMS: GENERAL: He has not had any significant weight change. Denies any chills. Denies any fever. CARDIOVASCULAR: Denies any chest pain. He has had some dyspnea with exertion. RESPIRATORY: He has been having some cough. No purulent sputum production. URINARY: No urinary foaminess, hematuria, or dysuria. GASTROINTESTINAL: Denies any nausea, vomiting, diarrhea, melena, or hematochezia. MUSCULOSKELETAL: Denies any arthralgia or myalgia. NEUROLOGICAL: Denies any paresthesia, muscle weakness, diplopia, or seizure. HEMATOLOGICAL: Denies any easy bruising or easy bleeding. ENDOCRINE: No history of diabetes mellitus. SKIN: Denies any rash or photosensitivity. The remainder of the review of the systems has been essentially negative. PHYSICAL EXAMINATION: GENERAL: He does not seem to be in much acute distress. VITAL SIGNS: Blood pressure is 135/88, pulse of 104, respiration 25, and temperature 98.5. HEENT: Head is atraumatic. Eyes, pupils reactive to light. No evidence of papilledema. Ears, canals are clear. Tympanic membranes are intact. Nose, nares are patent without any nasal discharge. Throat without any inflammation or exudates. NECK: Supple. Jugular venous distention is low normal. No cervical adenopathy. No thyromegaly. HEART: Regular rhythm. No gallop. LUNGS: Few rhonchi in both bases. ABDOMEN: Supple. Bowel sounds positive. No hepatosplenomegaly. EXTREMITIES: Lower extremity shows no cyanosis or clubbing. No pedal edema. NEUROLOGICAL: Cranial nerves are grossly intact. There is no focal neurological deficit present. LABORATORY AND DIAGNOSTIC DATA: Showing WBC of 9.9, hemoglobin 14.7, hematocrit 43.7, and platelets 145,000. Sodium 137, potassium 3.4, chloride 101, carbon dioxide 27, BUN is 16, creatinine is 1.6. Albumin 2.4. Chest x-ray is showing some mass in the left upper lobe, which had apparently increased in size compared to previous exam in May 2019. IMPRESSION: 1. He has evidence of severe COPD. 2. Left upper lobe tumor, most likely cancer. 3. Possible postobstructive pneumonia. 4. He seems to be dehydrated and there is also some degree of acute kidney injury as a result of that. PLAN: We are going to admit him. A urinalysis is currently obtained. We are going to give him some IV fluids. A CT scan of the chest is going to be obtained. Pulmonary consult is in order. Nebulizer is going to be instituted. I am going to start him on cefepime and Zithromax IV. Sputum is going to be sent for culture and sensitivity. Guillaume Huynh M.D. DR: Christelle JOB#: [id number] CC:
[2019-12-24] MEDS: Solu-MEDROL 40mg Inj IVP SCH ×4 (00:17→21:53)
[2019-12-24 04:00] VITALS: BP 97/63
[2019-12-24 05:50] LABS: HEMOGLOBIN 12.8 G/DL (14.2-18.0); MEAN CORPUSCULAR VOLUME 92 FL (80-99); PLATELET COUNT 136 K/UL (150-450); RED BLOOD COUNT 4.03 M/UL (4.70-6.10); RED CELL DISTRIBUTION WIDTH 13.2 % (11.6-14.8); WHITE BLOOD COUNT 7.3 K/UL (4.8-10.8)
[2019-12-24 06:23] LABS: ALANINE AMINOTRANSFERASE 21 U/L (12-78); ALBUMIN/GLOBULIN RATIO 0.4 (1.0-2.7); ALKALINE PHOSPHATASE 89 U/L (46-116); ANION GAP 7 mmol/L (5-15); ASPARTATE AMINO TRANSFERASE 15 U/L (15-37); BILIRUBIN,TOTAL 0.2 MG/DL (0.2-1.0); BLOOD UREA NITROGEN 21 mg/dL (7-18); CALCIUM 9.1 MG/DL (8.5-10.1); CARBON DIOXIDE 26 MMOL/L (21-32); CHLORIDE 107 MMOL/L (98-107); CREATININE 1.4 MG/DL (0.55-1.30); SODIUM 140 MMOL/L (136-145)
[2019-12-24 08:00] VITALS: BP 100/61
[2019-12-24] MEDS: Docusate 100mg cap ORAL SCH ×2 (09:27→21:00)
[2019-12-24] MEDS: Depakote ER 500mg tab ORAL SCH ×2 (09:27→21:00)
[2019-12-24] MEDS: Heparin 5000 units/ml inj SUBQ SCH ×2 (09:32→21:00)
[2019-12-24] MEDS: Cefepime HCl 1 GM in D5W 55 ML IV SCH ×2 (10:30→21:00)
[2019-12-24 12:00] VITALS: BP 105/62
--- NOTE | 2019-12-24 15:07 | Pulmonology Progress Note ---
Subjective ROS Limited/Unobtainable: No Respiratory: Reports: shortness of breath Allergies: Coded Allergies: No Known Allergies (Unverified , 12/23/19) Objective Last 24 Hour Vital Signs Date Time Temp Pulse Resp B/P (MAP) Pulse Ox O2 Delivery O2 Flow Rate FiO2 12/24/19 12:00 97.7 65 20 105/62 (76) 97 12/24/19 12:00 67 12/24/19 09:00 Nasal Cannula 2.0 12/24/19 08:00 69 12/24/19 08:00 97.5 69 22 100/61 (74) 96 12/24/19 04:00 97.0 71 20 97/63 (74) 98 12/24/19 04:00 74 12/24/19 00:00 75 12/24/19 00:00 98.1 90 20 106/68 (81) 96 12/23/19 21:00 Nasal Cannula 2.0 12/23/19 20:00 97.9 83 20 101/64 (76) 98 12/23/19 20:00 81 12/23/19 17:08 98.5 104 25 135/88 95 Nasal Cannula 2.0 12/23/19 16:29 Nasal Cannula 3.0 12/23/19 16:27 86 12/23/19 16:17 96.6 87 18 119/70 (86) 93 Intake and Output 12/23/19 12/24/19 19:00 07:00 Intake Total 240 ml Output Total 0 ml Balance 240 ml 0 ml Intake Oral 240 ml Output Stool Total 0 ml # Voids 1 4 # Bowel Movements 1 Microbiology Date/Time Source Procedure Growth Status 12/23/19 12:45 Nasopharynx Coronavirus COVID-19 PCR (JERRY) - Final Complete Laboratory Tests 12/23/19 15:40: Urine Color Yellow, Urine Appearance Clear, Urine pH 6, Urine Specific [place] 1.010, Urine Protein 2+H, Urine Glucose (UA) Negative, Urine Ketones 2+H, Urine Blood 2+H, Urine Nitrite Negative, Urine Bilirubin Negative, Urine Urobilinogen Normal, Urine Leukocyte Esterase Negative, Urine RBC 2-4H, Urine WBC 0-2, Urine Squamous Epithelial Cells Occasional, Urine Bacteria Few 12/24/19 05:00: White Blood Count 7.3, Red Blood Count 4.03L, Hemoglobin 12.8L, Hematocrit 37.0L , Mean Corpuscular Volume 92, Mean Corpuscular Hemoglobin 31.7H, Mean Corpuscular Hemoglobin Concent 34.6, Red Cell Distribution Width 13.2, Platelet Count 136L, Mean Platelet Volume 6.3L, Neutrophils (%) (Auto) , Lymphocytes (%) (Auto) , Monocytes (%) (Auto) , Eosinophils (%) (Auto) , Basophils (%) (Auto) , Differential Total Cells Counted 100, Neutrophils % (Manual) 93H, Lymphocytes % (Manual) 3L, Monocytes % (Manual) 4, Eosinophils % (Manual) 0, Basophils % ( Manual) 0, Band Neutrophils 0, Platelet Estimate DecreasedL, Platelet Morphology Normal, Red Blood Cell Morphology Normal, Sodium Level 140, Potassium Level 4.0, Chloride Level 107, Carbon Dioxide Level 26, Anion Gap 7, Blood Urea Nitrogen 21H, Creatinine 1.4H, Estimat Glomerular Filtration Rate 50.9, Glucose Level 115H, Calcium Level 9.1, Total Bilirubin 0.2, Aspartate Amino Transf (AST/SGOT) 15, Alanine Aminotransferase (ALT/SGPT) 21, Alkaline Phosphatase 89, Total Protein 6.8, Albumin 2.0L, Globulin 4.8, Albumin/Globulin Ratio 0.4L Current Medications Medications (Trade) Dose Ordered Sig/Carlito Route PRN Reason Start Time Stop Time Status Last Admin Dose Admin Acetaminophen (Tylenol) 650 mg Q4H PRN ORAL Mild Pain (Pain Scale 1-3) 12/23/19 19:00 01/22/20 18:59 Albuterol/ Ipratropium (Combivent Respimat) 1 puff Q6HR INH 12/24/19 20:00 01/23/20 19:59 Aspirin (ASA) 81 mg DAILY NG 12/24/19 20:00 02/07/20 19:59 Azithromycin 500 mg/Dextrose 275 ml @ 275 mls/hr Q24H IV 12/23/19 20:00 12/28/19 19:59 12/23/19 21:36 Bisacodyl (Dulcolax) 10 mg DAILYPRN PRN RECTAL Constipation 12/23/19 19:00 03/22/20 18:59 Cefepime HCl 1 gm/ Dextrose 55 ml @ 110 mls/hr EVERY 12 HOURS IV 12/23/19 21:00 12/30/19 20:59 12/24/19 10:30 Clozapine (Clozaril) 100 mg QHS ORAL 12/23/19 21:00 12/30/19 20:59 12/23/19 21:36 Divalproex Sodium (Depakote ER) 500 mg EVERY 12 HOURS ORAL 12/23/19 21:00 02/06/20 20:59 12/24/19 09:27 Docusate Sodium (Colace) 100 mg EVERY 12 HOURS ORAL 12/23/19 21:00 01/22/20 20:59 12/24/19 09:27 Heparin Sodium (Porcine) (Heparin 5000 units/ml) 5,000 units EVERY 12 HOURS SUBQ 12/24/19 09:00 02/06/20 20:59 12/24/19 09:32 Methylprednisolone Sodium Succinate (Solu-MEDROL) 40 mg EVERY 8 HOURS IVP 12/23/19 23:00 03/22/20 22:59 12/24/19 05:55 Ondansetron HCl (Zofran) 4 mg Q6H PRN IVP Nausea & Vomiting 12/23/19 19:00 01/22/20 18:59 Pantoprazole (Protonix) 40 mg DAILY ORAL 12/23/19 20:00 01/22/20 19:59 12/24/19 09:27 Sodium Chloride 1,000 ml @ 50 mls/hr Q20H IV 12/23/19 19:53 01/22/20 19:52 12/23/19 21:35 Tamsulosin HCl (Flomax) 0.4 mg BEDTIME ORAL 12/23/19 21:00 01/22/20 20:59 12/23/19 21:36 Assessment/Plan Assessment/Plan Pulmonary Progress Note HPI Patient is a 64 years old man, [employer] Resident, with past medical history of Chronic Obstructive Pulmonary Disease, Hypertension, HHD, Seizure disorder, Aortic aneurysm, admitted with shortness of breath, dyspnea, increased sputum production for 2 weeks, no history of fevers, chills, chest pain. Covid 19 negative Allergies: No Known Allergies Past Medical History: Chronic Obstructive Pulmonary Disease, Hypertension, HHD , Seizure disorder, Aortic aneurysm All Other Systems: negative except mentioned in HPI Physical Exam Vital Signs Noted Date Time Temp Pulse Resp B/P (MAP) Pulse Ox O2 Delivery O2 Flow Rate FiO2 12/23/19 12:24 97.9 105 25 110/60 (77) 91 Nasal Cannula 3.0 General Appearance: alert, some distress Head: normocephalic, atraumatic Eyes: bilateral eye PERRL, bilateral eye EOMI ENT: uvula midline, dry mucus membranes Neck: supple, thyroid normal, supple/symm/no masses Respiratory: decreased breath sounds, accessory muscle use, occasional rhonchi Cardiovascular: normal HS1, HS2, RRR, no edema, no gallop, no murmur, tachycardia Gastrointestinal: non tender, soft, no guarding, no rebound Extremities: well perfused, no edema, normal inspection Neurologic: alert, oriented x3, no focal signs Skin: no rash, warm/dry Impression: Chronic obstructive pulmonary disease exacerbation Respiratory distress Pneumonia Hypertension Seizure disorder Previous Aortic aneurysm Plan IV broad-spectrum antibiotics HHN Solumedrol O2 PRN Await cultures/viral studies [employer] Medications CT Chest PPX Laboratory Tests Test 12/23/19 12:44 12/23/19 12:45 Venous Blood pH 7.326 Venous Blood Partial Pressure CO2 49.3 Venous Blood Partial Pressure O2 42.9 Venous Blood HCO3 25.2 Venous Blood Total Carbon Dioxide 49.3 Venous Blood Base Excess -1.4 Venous Blood Carboxyhemoglobin 2.3 % (0.5-1.5) H Methemoglobin 0.3 White Blood Count 9.9 K/UL (4.8-10.8) Red Blood Count 4.81 M/UL (4.70-6.10) Hemoglobin 14.7 G/DL (14.2-18.0) Hematocrit 43.7 % (42.0-52.0) Mean Corpuscular Volume 91 FL (80-99) Mean Corpuscular Hemoglobin 30.6 PG (27.0-31.0) Mean Corpuscular Hemoglobin Concent 33.7 G/DL (32.0-36.0) Red Cell Distribution Width 12.9 % (11.6-14.8) Platelet Count 145 K/UL (150-450) L Mean Platelet Volume 6.6 FL (6.5-10.1) Neutrophils (%) (Auto) % (45.0-75.0) Lymphocytes (%) (Auto) % (20.0-45.0) Monocytes (%) (Auto) % (1.0-10.0) Eosinophils (%) (Auto) % (0.0-3.0) Basophils (%) (Auto) % (0.0-2.0) Differential Total Cells Counted 100 Neutrophils % (Manual) 84 % (45-75) H Lymphocytes % (Manual) 7 % (20-45) L Monocytes % (Manual) 7 % (1-10) Eosinophils % (Manual) 2 % (0-3) Basophils % (Manual) 0 % (0-2) Band Neutrophils 0 % (0-8) Platelet Estimate Decreased L Platelet Morphology Normal Sodium Level 137 MMOL/L (136-145) Potassium Level 3.4 MMOL/L (3.5-5.1) L Chloride Level 101 MMOL/L (98-107) Carbon Dioxide Level 27 MMOL/L (21-32) Anion Gap 9 mmol/L (5-15) Blood Urea Nitrogen 15 mg/dL (7-18) Creatinine 1.6 MG/DL (0.55-1.30) H Estimated Glomerular Filtration Rate 43.6 mL/min (>60) Glucose Level 128 MG/DL (74-106) H Lactic Acid Level Pending Calcium Level 10.0 MG/DL (8.5-10.1) Phosphorus Level Pending Magnesium Level Pending Total Bilirubin Pending Aspartate Amino Transferase (AST) Pending Alanine Aminotransferase (ALT) Pending Alkaline Phosphatase Pending Total Creatine Kinase Pending Creatine Kinase MB Pending Troponin I Pending Pro-B-Type Natriuretic Peptide Pending Total Protein Pending Albumin Pending Globulin Pending Lipase Pending EKG: NSR, rate 97, QTc 416, no acute ST elevations, left axis deviation Chest X-Ray: Left upper lobe consolidation vs scarring, possible mass Rajeev Turner MD December 24, 2019 15:07
[2019-12-24 16:00] VITALS: BP 108/65
[2019-12-24] MEDS ORDERED: D5W 275ml ONE (17:39)
[2019-12-24] MEDS ORDERED: 1/2 NS 1000ml IV ONE (17:39)
[2019-12-24] MEDS ORDERED: Tubing IV Secondary IV ONE (17:39)
--- NOTE | 2019-12-24 17:46 | General Progress Note ---
Assessment/Plan Assessment/Plan: 1) MERLYN mass 2) PNA 3) Acute exacerbation of COPD 4) BRAD improving with IV fluid Plan: IVF IV ATB Awaiting CT of the chest Subjective Allergies: Coded Allergies: No Known Allergies (Unverified , 12/23/19) Subjective He is still sob, but better, still on IV ATB's, Objective Last 24 Hour Vital Signs Date Time Temp Pulse Resp B/P (MAP) Pulse Ox O2 Delivery O2 Flow Rate FiO2 12/24/19 16:00 97.2 73 18 108/65 (79) 96 12/24/19 16:00 73 12/24/19 12:00 97.7 65 20 105/62 (76) 97 12/24/19 12:00 67 12/24/19 09:00 Nasal Cannula 2.0 12/24/19 08:00 69 12/24/19 08:00 97.5 69 22 100/61 (74) 96 12/24/19 04:00 97.0 71 20 97/63 (74) 98 12/24/19 04:00 74 12/24/19 00:00 75 12/24/19 00:00 98.1 90 20 106/68 (81) 96 12/23/19 21:00 Nasal Cannula 2.0 12/23/19 20:00 97.9 83 20 101/64 (76) 98 12/23/19 20:00 81 Intake and Output 12/23/19 12/24/19 19:00 07:00 Intake Total 240 ml Output Total 0 ml Balance 240 ml 0 ml Intake Oral 240 ml Stool Total 0 ml # Voids 1 4 # Bowel Movements 1 Laboratory Tests 12/24/19 05:00: White Blood Count 7.3, Red Blood Count 4.03L, Hemoglobin 12.8L, Hematocrit 37.0L , Mean Corpuscular Volume 92, Mean Corpuscular Hemoglobin 31.7H, Mean Corpuscular Hemoglobin Concent 34.6, Red Cell Distribution Width 13.2, Platelet Count 136L, Mean Platelet Volume 6.3L, Neutrophils (%) (Auto) , Lymphocytes (%) (Auto) , Monocytes (%) (Auto) , Eosinophils (%) (Auto) , Basophils (%) (Auto) , Differential Total Cells Counted 100, Neutrophils % (Manual) 93H, Lymphocytes % (Manual) 3L, Monocytes % (Manual) 4, Eosinophils % (Manual) 0, Basophils % ( Manual) 0, Band Neutrophils 0, Platelet Estimate DecreasedL, Platelet Morphology Normal, Red Blood Cell Morphology Normal, Sodium Level 140, Potassium Level 4.0, Chloride Level 107, Carbon Dioxide Level 26, Anion Gap 7, Blood Urea Nitrogen 21H, Creatinine 1.4H, Estimat Glomerular Filtration Rate 50.9, Glucose Level 115H, Calcium Level 9.1, Total Bilirubin 0.2, Aspartate Amino Transf (AST/SGOT) 15, Alanine Aminotransferase (ALT/SGPT) 21, Alkaline Phosphatase 89, Total Protein 6.8, Albumin 2.0L, Globulin 4.8, Albumin/Globulin Ratio 0.4L Height (Feet): 6 Height (Inches): 1.00 Weight (Pounds): 191 General Appearance: WD/WN, no apparent distress EENT: PERRL/EOMI Neck: non-tender, supple Cardiovascular: JVD - nl Respiratory/Chest: chest wall non-tender, decreased breath sounds, rhonchi - bilaterally Abdomen: normal bowel sounds, non tender, soft Extremities: normal range of motion 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
[2019-12-24 20:00] VITALS: BP 101/54
[2019-12-24] MEDS: Azithromycin 500 MG in D5W 275 ML IV SCH (20:00)
[2019-12-24] MEDS: Aspirin Baby 81mg NG SCH (20:00)
[2019-12-24] MEDS: Tamsulosin 0.4mg cap ORAL SCH (21:00)
[2019-12-25] VITALS: BP 112/61
[2019-12-25 04:00] VITALS: BP 109/62
[2019-12-25] MEDS: Solu-MEDROL 40mg Inj IVP SCH ×2 (05:31→21:20)
[2019-12-25 08:00] VITALS: BP 103/57
[2019-12-25] MEDS: Docusate 100mg cap ORAL SCH ×2 (09:51→21:00)
[2019-12-25] MEDS: Aspirin Baby 81mg NG SCH (09:52)
[2019-12-25] MEDS: Depakote ER 500mg tab ORAL SCH ×2 (09:52→21:20)
[2019-12-25] MEDS: Heparin 5000 units/ml inj SUBQ SCH ×2 (09:56→21:00)
[2019-12-25] MEDS: Cefepime HCl 1 GM in D5W 55 ML IV SCH ×2 (09:57→21:20)
[2019-12-25 12:00] VITALS: BP 108/76
--- NOTE | 2019-12-25 12:29 | Pulmonology Progress Note ---
Subjective ROS Limited/Unobtainable: No Respiratory: Reports: shortness of breath Allergies: Coded Allergies: No Known Allergies (Unverified , 12/23/19) Objective Last 24 Hour Vital Signs Date Time Temp Pulse Resp B/P (MAP) Pulse Ox O2 Delivery O2 Flow Rate FiO2 12/25/19 12:00 97.2 71 20 108/76 (87) 76 12/25/19 09:00 Nasal Cannula 2.0 12/25/19 08:00 99.0 69 19 103/57 (72) 95 12/25/19 08:00 74 12/25/19 04:00 97.4 74 20 109/62 (78) 97 12/25/19 04:00 64 12/25/19 00:00 84 12/25/19 00:00 96.8 71 20 112/61 (78) 98 12/24/19 21:00 Nasal Cannula 2.0 12/24/19 20:00 71 12/24/19 20:00 96.6 67 20 101/54 (70) 99 12/24/19 16:00 97.2 73 18 108/65 (79) 96 12/24/19 16:00 73 Intake and Output 12/24/19 12/25/19 19:00 07:00 Intake Total 500 ml Output Total 1400 ml 800 ml Balance -900 ml -800 ml Intake Oral 500 ml Output Urine Total 1400 ml 800 ml # Voids 4 8 # Bowel Movements 2 Microbiology Date/Time Source Procedure Growth Status 12/23/19 13:20 Blood Blood Culture - Preliminary NO GROWTH AFTER 24 HOURS Resulted 12/23/19 12:45 Blood Blood Culture - Preliminary NO GROWTH AFTER 24 HOURS Resulted 12/24/19 05:30 Sputum Gram Stain - Final Resulted 12/24/19 05:30 Sputum Sputum Culture Pending Resulted 12/23/19 12:45 Nasopharynx Coronavirus COVID-19 PCR (JERRY) - Final Complete Current Medications Medications (Trade) Dose Ordered Sig/Carlito Route PRN Reason Start Time Stop Time Status Last Admin Dose Admin Acetaminophen (Tylenol) 650 mg Q4H PRN ORAL Mild Pain (Pain Scale 1-3) 12/23/19 19:00 01/22/20 18:59 Albuterol/ Ipratropium (Combivent Respimat) 1 puff Q6HR INH 12/24/19 20:00 01/23/20 19:59 5/31/20 12:26 Aspirin (ASA) 81 mg DAILY NG 12/24/19 20:00 02/07/20 19:59 12/25/19 09:52 Azithromycin 500 mg/Dextrose 275 ml @ 275 mls/hr Q24H IV 12/23/19 20:00 12/28/19 19:59 12/24/19 20:00 Bisacodyl (Dulcolax) 10 mg DAILYPRN PRN RECTAL Constipation 12/23/19 19:00 03/22/20 18:59 12/25/19 00:03 Cefepime HCl 1 gm/ Dextrose 55 ml @ 110 mls/hr EVERY 12 HOURS IV 12/23/19 21:00 12/30/19 20:59 12/25/19 09:57 Clozapine (Clozaril) 100 mg QHS ORAL 12/23/19 21:00 12/30/19 20:59 12/24/19 21:00 Divalproex Sodium (Depakote ER) 500 mg EVERY 12 HOURS ORAL 12/23/19 21:00 02/06/20 20:59 12/25/19 09:52 Docusate Sodium (Colace) 100 mg EVERY 12 HOURS ORAL 12/23/19 21:00 01/22/20 20:59 12/25/19 09:51 Heparin Sodium (Porcine) (Heparin 5000 units/ml) 5,000 units EVERY 12 HOURS SUBQ 12/25/19 09:00 02/06/20 20:59 12/25/19 09:56 Methylprednisolone Sodium Succinate (Solu-MEDROL) 40 mg EVERY 8 HOURS IVP 12/23/19 23:00 03/22/20 22:59 12/25/19 05:31 Ondansetron HCl (Zofran) 4 mg Q6H PRN IVP Nausea & Vomiting 12/23/19 19:00 01/22/20 18:59 Pantoprazole (Protonix) 40 mg DAILY ORAL 12/23/19 20:00 01/22/20 19:59 12/25/19 09:51 Sodium Chloride 1,000 ml @ 50 mls/hr Q20H IV 12/23/19 19:53 01/22/20 19:52 12/23/19 21:35 Tamsulosin HCl (Flomax) 0.4 mg BEDTIME ORAL 12/23/19 21:00 01/22/20 20:59 12/24/19 21:00 Assessment/Plan Assessment/Plan Pulmonary Progress Note HPI Patient is a 64 years old man, 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 Possible left upper zone mass - CT Chest pending Covid 19 negative Allergies: No Known Allergies Past Medical History: Chronic Obstructive Pulmonary Disease, Hypertension, HHD , Seizure disorder, Aortic aneurysm All Other Systems: negative except mentioned in HPI Physical Exam Vital Signs Noted General Appearance: alert, some distress Head: normocephalic, atraumatic Eyes: bilateral eye PERRL, bilateral eye EOMI ENT: uvula midline, dry mucus membranes Neck: supple, thyroid normal, supple/symm/no masses Respiratory: decreased breath sounds, CTAB Cardiovascular: normal HS1, HS2, RRR, no edema, no gallop, no murmur, tachycardia Gastrointestinal: non tender, soft, no guarding, no rebound Extremities: well perfused, no edema, normal inspection Neurologic: alert, oriented x3, no focal signs Skin: no rash, warm/dry Impression: Chronic obstructive pulmonary disease exacerbation Respiratory distress Pneumonia Hypertension Seizure disorder Previous Aortic aneurysm Plan IV broad-spectrum antibiotics HHN Solumedrol O2 PRN 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 CT Chest PPX Laboratory Tests Noted Test 12/23/19 12:44 12/23/19 12:45 Venous Blood pH 7.326 Venous Blood Partial Pressure CO2 49.3 Venous Blood Partial Pressure O2 42.9 Venous Blood HCO3 25.2 Venous Blood Total Carbon Dioxide 49.3 Venous Blood Base Excess -1.4 Venous Blood Carboxyhemoglobin 2.3 % (0.5-1.5) H Methemoglobin 0.3 White Blood Count 9.9 K/UL (4.8-10.8) Red Blood Count 4.81 M/UL (4.70-6.10) Hemoglobin 14.7 G/DL (14.2-18.0) Hematocrit 43.7 % (42.0-52.0) Mean Corpuscular Volume 91 FL (80-99) Mean Corpuscular Hemoglobin 30.6 PG (27.0-31.0) Mean Corpuscular Hemoglobin Concent 33.7 G/DL (32.0-36.0) Red Cell Distribution Width 12.9 % (11.6-14.8) Platelet Count 145 K/UL (150-450) L Mean Platelet Volume 6.6 FL (6.5-10.1) Neutrophils (%) (Auto) % (45.0-75.0) Lymphocytes (%) (Auto) % (20.0-45.0) Monocytes (%) (Auto) % (1.0-10.0) Eosinophils (%) (Auto) % (0.0-3.0) Basophils (%) (Auto) % (0.0-2.0) Differential Total Cells Counted 100 Neutrophils % (Manual) 84 % (45-75) H Lymphocytes % (Manual) 7 % (20-45) L Monocytes % (Manual) 7 % (1-10) Eosinophils % (Manual) 2 % (0-3) Basophils % (Manual) 0 % (0-2) Band Neutrophils 0 % (0-8) Platelet Estimate Decreased L Platelet Morphology Normal Sodium Level 137 MMOL/L (136-145) Potassium Level 3.4 MMOL/L (3.5-5.1) L Chloride Level 101 MMOL/L (98-107) Carbon Dioxide Level 27 MMOL/L (21-32) Anion Gap 9 mmol/L (5-15) Blood Urea Nitrogen 15 mg/dL (7-18) Creatinine 1.6 MG/DL (0.55-1.30) H Estimated Glomerular Filtration Rate 43.6 mL/min (>60) Glucose Level 128 MG/DL (74-106) H Lactic Acid Level Pending Calcium Level 10.0 MG/DL (8.5-10.1) Phosphorus Level Pending Magnesium Level Pending Total Bilirubin Pending Aspartate Amino Transferase (AST) Pending Alanine Aminotransferase (ALT) Pending Alkaline Phosphatase Pending Total Creatine Kinase Pending Creatine Kinase MB Pending Troponin I Pending Pro-B-Type Natriuretic Peptide Pending Total Protein Pending Albumin Pending Globulin Pending Lipase Pending EKG: NSR, rate 97, QTc 416, no acute ST elevations, left axis deviation Chest X-Ray: Left upper lobe consolidation vs scarring, possible mass Rajeev Turner MD December 25, 2019 12:29
--- NOTE | 2019-12-25 15:05 | General Progress Note ---
Assessment/Plan Assessment/Plan: 1) MERLYN mass 2) PNA 3) Acute exacerbation of COPD 4) BRAD improving with IV fluid Plan: D/C IVF IV ATB Awaiting CT of the chest Subjective Allergies: Coded Allergies: No Known Allergies (Unverified , 12/23/19) Subjective He is doing status quo, CT of chest is not done yet Objective Last 24 Hour Vital Signs Date Time Temp Pulse Resp B/P (MAP) Pulse Ox O2 Delivery O2 Flow Rate FiO2 12/25/19 12:00 69 12/25/19 12:00 97.2 71 20 108/76 (87) 76 12/25/19 09:00 Nasal Cannula 2.0 12/25/19 08:00 99.0 69 19 103/57 (72) 95 12/25/19 08:00 74 12/25/19 04:00 97.4 74 20 109/62 (78) 97 12/25/19 04:00 64 12/25/19 00:00 84 12/25/19 00:00 96.8 71 20 112/61 (78) 98 12/24/19 21:00 Nasal Cannula 2.0 12/24/19 20:00 71 12/24/19 20:00 96.6 67 20 101/54 (70) 99 12/24/19 16:00 97.2 73 18 108/65 (79) 96 12/24/19 16:00 73 Intake and Output 12/24/19 12/25/19 18:59 06:59 Intake Total 500 ml Output Total 1400 ml 800 ml Balance -900 ml -800 ml Intake Oral 500 ml Output Urine Total 1400 ml 800 ml # Voids 4 8 # Bowel Movements 2 Height (Feet): 6 Height (Inches): 1.00 Weight (Pounds): 191 General Appearance: WD/WN, no apparent distress EENT: PERRL/EOMI Neck: non-tender Cardiovascular: normal peripheral pulses, normal rate, regular rhythm, JVD - nl Respiratory/Chest: lungs clear Abdomen: normal bowel sounds, non tender Extremities: normal range of motion 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
[2019-12-25 16:00] VITALS: BP 120/63
[2019-12-25] MEDS ORDERED: 1/2 NS 1000ml IV ONE (18:05)
[2019-12-25] MEDS ORDERED: D5W 275ml ONE (18:05)
[2019-12-25 20:00] VITALS: BP 111/66
[2019-12-25] MEDS: Tamsulosin 0.4mg cap ORAL SCH (21:20)
[2019-12-25] MEDS: Azithromycin 500 MG in D5W 275 ML IV SCH (21:20)
[2019-12-26] VITALS: BP 120/70
[2019-12-26 04:00] VITALS: BP 110/65
[2019-12-26 07:39] LABS: ANION GAP 6 mmol/L (5-15); BLOOD UREA NITROGEN 23 mg/dL (7-18); CARBON DIOXIDE 27 MMOL/L (21-32); CHLORIDE 110 MMOL/L (98-107); CREATININE 1.2 MG/DL (0.55-1.30); POTASSIUM 4.4 MMOL/L (3.5-5.1); SODIUM 143 MMOL/L (136-145)
[2019-12-26 08:00] VITALS: BP 123/76
--- NOTE | 2019-12-26 08:29 | Pulmonology Progress Note ---
Subjective ROS Limited/Unobtainable: No Respiratory: Reports: shortness of breath Allergies: Coded Allergies: No Known Allergies (Unverified , 12/23/19) Subjective care noted weekend events reviewed Objective Last 24 Hour Vital Signs Date Time Temp Pulse Resp B/P (MAP) Pulse Ox O2 Delivery O2 Flow Rate FiO2 12/26/19 04:00 97.9 65 20 110/65 (80) 94 12/26/19 03:54 69 12/26/19 00:00 76 12/26/19 00:00 97.9 72 20 120/70 (87) 92 12/25/19 21:00 Nasal Cannula 2.0 12/25/19 20:00 97.7 72 24 111/66 (81) 92 12/25/19 20:00 79 12/25/19 16:00 98.5 104 20 120/63 (82) 97 12/25/19 16:00 64 12/25/19 12:00 69 12/25/19 12:00 97.2 71 20 108/76 (87) 96 12/25/19 09:00 Nasal Cannula 2.0 Intake and Output 12/25/19 12/26/19 18:59 06:59 Intake Total 470 ml Output Total 1200 ml Balance -730 ml Intake Oral 120 ml IV Total 350 ml Output Urine Total 1200 ml # Voids 3 2 Objective WDWN NAD reduced breath sounds bilaterally without rhonchi or wheeze [id number] without MRG NABS nontender no HSM no CCE nonfocal but weak Microbiology Date/Time Source Procedure Growth Status 12/23/19 13:20 Blood Blood Culture - Preliminary NO GROWTH AFTER 48 HOURS Resulted 12/23/19 12:45 Blood Blood Culture - Preliminary NO GROWTH AFTER 48 HOURS Resulted 12/24/19 05:30 Sputum Gram Stain - Final Resulted 12/24/19 05:30 Sputum Sputum Culture Pending Resulted 12/23/19 12:45 Nasopharynx Coronavirus COVID-19 PCR (JERRY) - Final Complete Laboratory Tests 12/26/19 06:19: Sodium Level 143, Potassium Level 4.4, Chloride Level 110H, Carbon Dioxide Level 27, Anion Gap 6, Blood Urea Nitrogen 23H, Creatinine 1.2, Estimat Glomerular Filtration Rate > 60, Glucose Level 92, Calcium Level 9.0 Current Medications Medications (Trade) Dose Ordered Sig/Carlito Route PRN Reason Start Time Stop Time Status Last Admin Dose Admin Acetaminophen (Tylenol) 650 mg Q4H PRN ORAL Mild Pain (Pain Scale 1-3) 12/23/19 19:00 01/22/20 18:59 Albuterol/ Ipratropium (Combivent Respimat) 1 puff Q6HR INH 12/24/19 20:00 01/23/20 19:59 12/25/19 18:10 Aspirin (ASA) 81 mg DAILY NG 12/24/19 20:00 02/07/20 19:59 12/25/19 09:52 Azithromycin 500 mg/Dextrose 275 ml @ 275 mls/hr Q24H IV 12/23/19 20:00 12/28/19 19:59 12/25/19 21:20 Bisacodyl (Dulcolax) 10 mg DAILYPRN PRN RECTAL Constipation 12/23/19 19:00 03/22/20 18:59 12/25/19 00:03 Cefepime HCl 1 gm/ Dextrose 55 ml @ 110 mls/hr EVERY 12 HOURS IV 12/23/19 21:00 12/30/19 20:59 12/25/19 21:20 Clozapine (Clozaril) 100 mg QHS ORAL 12/23/19 21:00 12/30/19 20:59 12/25/19 21:20 Divalproex Sodium (Depakote ER) 500 mg EVERY 12 HOURS ORAL 12/23/19 21:00 02/06/20 20:59 12/25/19 21:20 Docusate Sodium (Colace) 100 mg EVERY 12 HOURS ORAL 12/23/19 21:00 01/22/20 20:59 12/25/19 09:51 Heparin Sodium (Porcine) (Heparin 5000 units/ml) 5,000 units EVERY 12 HOURS SUBQ 12/25/19 09:00 02/06/20 20:59 12/25/19 09:56 Methylprednisolone Sodium Succinate (Solu-MEDROL) 40 mg Q12HR IVP 12/25/19 21:00 03/22/20 22:59 12/25/19 21:20 Ondansetron HCl (Zofran) 4 mg Q6H PRN IVP Nausea & Vomiting 12/23/19 19:00 01/22/20 18:59 Pantoprazole (Protonix) 40 mg DAILY ORAL 12/23/19 20:00 01/22/20 19:59 12/25/19 09:51 Tamsulosin HCl (Flomax) 0.4 mg BEDTIME ORAL 12/23/19 21:00 01/22/20 20:59 12/25/19 21:20 Assessment/Plan Assessment/Plan Impression: Chronic obstructive pulmonary disease exacerbation Respiratory distress Pneumonia Hypertension Seizure disorder Previous Aortic aneurysm lung nodule Plan IV broad-spectrum antibiotics HHN Solumedrol and taper O2 PRN renal noted care as is CT Chest monitor and work up nodule pending CT d/w primary impression, plan, and exam edited and reviewed in detail care discussed with James Fontaine MD Dec 26, 2019 08:29
[2019-12-26] MEDS: Cefepime HCl 1 GM in D5W 55 ML IV SCH ×2 (08:51→21:48)
[2019-12-26] MEDS: Solu-MEDROL 40mg Inj IVP SCH ×2 (08:51→21:49)
[2019-12-26] MEDS: Docusate 100mg cap ORAL SCH ×2 (08:52→21:49)
[2019-12-26] MEDS: Depakote ER 500mg tab ORAL SCH ×2 (08:52→21:49)
[2019-12-26] MEDS: Aspirin Baby 81mg NG SCH (08:52)
[2019-12-26] MEDS: Heparin 5000 units/ml inj SUBQ SCH ×2 (08:58→21:51)
[2019-12-26 12:00] VITALS: BP 138/69
--- NOTE | 2019-12-26 12:51 | Diagnostic Imaging Report ---
Clinical Indication: Shortness of breath, history COPD, increased sputum production Technique: Spiral acquisitions obtained through the chest. No IV contrast utilized, per referring physician request. Multiplanar reconstructions generated. Total dose length product 201 mGycm. CTDIvol(s) 5 mGy. Dose reduction achieved using automated exposure control Comparison: 06/07/2019 Findings: Again demonstrated are bullous changes in both upper lung periphery as. Again demonstrated is honeycombing in the periphery of both upper lobes and in the right lower lobe. Dense opacity extends from the left pulmonary hilum to the periphery of the left upper lobe, contiguous with pleural thickening in this area. The appearance of this lesion appears similar to the previous study. Dense consolidation in the anterior left upper lobe that was evident previously is no longer evident. No effusions. The heart size is normal. There is minimal pericardial thickening. The main pulmonary artery is ectatic, measuring 3.6 cm in diameter. The right main pulmonary artery measures 2.8 cm in diameter. The ascending thoracic aorta is ectatic but not frankly aneurysmal No mediastinal or hilar mass or adenopathy demonstrated. Included portion of the thyroid is unremarkable. No axillary or chest wall mass or adenopathy. There is bilateral gynecomastia incidentally noted. The included upper abdominal anatomy is unremarkable. The bones are unremarkable. Impression: Areas of honeycombing and upper lobe bullous change, consistent with combined pulmonary fibrosis and emphysema, similar to previous study of 06/07/2019 Masslike opacity extending from the left hilum to the left lung periphery with associated pleural thickening. This is unchanged from the prior exam. While possibly neoplastic in etiology, stability since prior exam raises possibility that this just represents chronic fibrotic change. There is high clinical suspicion, PET scanning may be useful for better characterization. Previously demonstrated left upper lobe infiltrate is no longer evident Ectatic but not frankly dilated pulmonary arteries, suspicious but not diagnostic for pulmonary arterial hypertension Ectatic ascending thoracic aorta Bilateral gynecomastia The CT scanner at [facility] is accredited by the [employer] and the scans are performed using protocols designed to limit radiation exposure to as low as reasonably achievable to attain images of sufficient resolution adequate for diagnostic evaluation.
[2019-12-26 16:00] VITALS: BP 108/72
[2019-12-26 20:00] VITALS: BP 117/69
[2019-12-26] MEDS: Azithromycin 500 MG in D5W 275 ML IV SCH (21:48)
[2019-12-26] MEDS: Tamsulosin 0.4mg cap ORAL SCH (21:49)
[2019-12-27] VITALS: BP 110/60
[2019-12-27 04:00] VITALS: BP 96/48
[2019-12-27 08:00] VITALS: BP 112/75
--- NOTE | 2019-12-27 08:23 | Pulmonology Progress Note ---
Subjective ROS Limited/Unobtainable: No Respiratory: Reports: shortness of breath Allergies: Coded Allergies: No Known Allergies (Unverified , 12/23/19) Subjective care noted weekend events reviewed CT noted Objective Last 24 Hour Vital Signs Date Time Temp Pulse Resp B/P (MAP) Pulse Ox O2 Delivery O2 Flow Rate FiO2 12/27/19 04:00 97.7 64 19 96/48 (64) 98 12/27/19 04:00 59 12/27/19 00:00 59 12/27/19 00:00 97.2 84 18 110/60 (77) 98 12/26/19 21:00 Nasal Cannula 2.0 12/26/19 20:00 49 12/26/19 20:00 97.8 79 18 117/69 (85) 95 12/26/19 16:00 98.1 85 18 108/72 (84) 94 12/26/19 15:10 68 12/26/19 12:00 97.7 92 20 138/69 (92) 95 12/26/19 12:00 57 12/26/19 09:00 Nasal Cannula 2.0 Intake and Output 12/26/19 12/27/19 19:00 07:00 Intake Total 720 ml Output Total 1000 ml Balance -280 ml Intake Oral 720 ml Output Urine Total 1000 ml # Voids 1 2 # Bowel Movements 1 Objective WDWN NAD reduced breath sounds bilaterally without rhonchi or wheeze [id number] without MRG NABS nontender no HSM no CCE nonfocal but weak Current Medications Medications (Trade) Dose Ordered Sig/Carlito Route PRN Reason Start Time Stop Time Status Last Admin Dose Admin Acetaminophen (Tylenol) 650 mg Q4H PRN ORAL Mild Pain (Pain Scale 1-3) 12/23/19 19:00 01/22/20 18:59 Albuterol/ Ipratropium (Combivent Respimat) 1 puff Q6HR INH 12/24/19 20:00 01/23/20 19:59 12/27/19 06:12 Aspirin (ASA) 81 mg DAILY ORAL 12/27/19 09:00 02/07/20 19:59 Azithromycin 500 mg/Dextrose 275 ml @ 275 mls/hr Q24H IV 12/23/19 20:00 12/28/19 19:59 12/26/19 21:48 Bisacodyl (Dulcolax) 10 mg DAILYPRN PRN RECTAL Constipation 12/23/19 19:00 03/22/20 18:59 12/25/19 00:03 Cefepime HCl 1 gm/ Dextrose 55 ml @ 110 mls/hr EVERY 12 HOURS IV 12/23/19 21:00 12/30/19 20:59 12/26/19 21:48 Clozapine (Clozaril) 100 mg QHS ORAL 12/23/19 21:00 12/30/19 20:59 12/26/19 21:49 Divalproex Sodium (Depakote ER) 500 mg EVERY 12 HOURS ORAL 12/23/19 21:00 02/06/20 20:59 12/26/19 21:49 Docusate Sodium (Colace) 100 mg EVERY 12 HOURS ORAL 12/23/19 21:00 01/22/20 20:59 12/26/19 21:49 Heparin Sodium (Porcine) (Heparin 5000 units/ml) 5,000 units EVERY 12 HOURS SUBQ 12/25/19 09:00 02/06/20 20:59 12/26/19 21:51 Methylprednisolone Sodium Succinate (Solu-MEDROL) 40 mg Q12HR IVP 12/25/19 21:00 03/22/20 22:59 12/26/19 21:49 Ondansetron HCl (Zofran) 4 mg Q6H PRN IVP Nausea & Vomiting 12/23/19 19:00 01/22/20 18:59 Pantoprazole (Protonix) 40 mg DAILY ORAL 12/23/19 20:00 01/22/20 19:59 12/26/19 08:51 Tamsulosin HCl (Flomax) 0.4 mg BEDTIME ORAL 12/23/19 21:00 01/22/20 20:59 12/26/19 21:49 Assessment/Plan Assessment/Plan Impression: Chronic obstructive pulmonary disease exacerbation honeycombing and pulmonary fibrosis Respiratory distress Pneumonia Hypertension Seizure disorder Previous Aortic aneurysm lung mass vs fibrosis, stable over 7 months Plan IV broad-spectrum antibiotics HHN Solumedrol reduction O2 PRN renal noted care as is outpatient PET recommended monitor for change impression, plan, and exam edited and reviewed in detail care discussed with James Fontaine MD Dec 27, 2019 08:23
[2019-12-27] MEDS: Cefepime HCl 1 GM in D5W 55 ML IV SCH ×2 (08:48→22:48)
[2019-12-27] MEDS: Docusate 100mg cap ORAL SCH ×2 (08:48→22:51)
[2019-12-27] MEDS: Solu-MEDROL 40mg Inj IVP SCH ×2 (08:48→22:49)
[2019-12-27] MEDS: Depakote ER 500mg tab ORAL SCH ×2 (08:49→22:49)
[2019-12-27] MEDS: Heparin 5000 units/ml inj SUBQ SCH ×2 (08:49→22:50)
[2019-12-27] MEDS: Aspirin Baby 81mg ORAL SCH (08:50)
[2019-12-27 12:00] VITALS: BP 145/76
[2019-12-27 16:00] VITALS: BP 125/74
[2019-12-27 20:00] VITALS: BP 115/65
--- NOTE | 2019-12-27 20:40 | General Progress Note ---
Assessment/Plan Problem List: (1) Bradycardia ICD Codes: R00.1 - Bradycardia, unspecified SNOMED: 42367739 (2) Lung cancer ICD Codes: C34.90 - Malignant neoplasm of unspecified part of unspecified bronchus or lung SNOMED: 185393673 (3) COPD exacerbation ICD Codes: J44.1 - Chronic obstructive pulmonary disease with (acute) exacerbation SNOMED: 082052795 (4) Suspected 2019 novel coronavirus infection ICD Codes: Z20.828 - Contact with and (suspected) exposure to other viral communicable diseases SNOMED: 786846174 Assessment/Plan: continue tele, cardiology consulting, steroids, hhn, oncology reevaluation post discharge Subjective Constitutional: Reports: weakness HEENT: Reports: no symptoms Cardiovascular: Reports: irregular heart rate Respiratory: Reports: cough, shortness of breath Gastrointestinal/Abdominal: Reports: no symptoms Genitourinary: Reports: no symptoms Neurologic/Psychiatric: Reports: no symptoms Endocrine: Reports: no symptoms Allergies: Coded Allergies: No Known Allergies (Unverified , 12/23/19) Objective Last 24 Hour Vital Signs Date Time Temp Pulse Resp B/P (MAP) Pulse Ox O2 Delivery O2 Flow Rate FiO2 12/27/19 16:00 46 12/27/19 16:00 97.4 54 18 125/74 (91) 98 12/27/19 12:00 52 12/27/19 12:00 96.7 57 20 145/76 (99) 95 12/27/19 09:00 Nasal Cannula 2.0 12/27/19 08:00 65 12/27/19 08:00 96.8 56 22 112/75 (87) 96 12/27/19 04:00 97.7 64 19 96/48 (64) 98 12/27/19 04:00 59 12/27/19 00:00 59 12/27/19 00:00 97.2 84 18 110/60 (77) 98 12/26/19 21:00 Nasal Cannula 2.0 Intake and Output 12/26/19 12/27/19 19:00 07:00 Intake Total 720 ml Output Total 1000 ml Balance -280 ml Intake Oral 720 ml Output Urine Total 1000 ml # Voids 1 2 # Bowel Movements 1 Laboratory Tests 12/27/19 18:05: Troponin I 0.020 Height (Feet): 6 Height (Inches): 1.00 Weight (Pounds): 191 General Appearance: alert EENT: normal ENT inspection Neck: normal alignment Cardiovascular: regular rhythm Respiratory/Chest: expiratory wheezing Edema: no edema noted Arm (L), no edema noted Arm (R), no edema noted Leg (L), no edema noted Leg (R), no edema noted Pedal (L), no edema noted Pedal (R), no edema noted Generalized Robert Fernandez MD Dec 27, 2019 20:40
[2019-12-27] MEDS: Tamsulosin 0.4mg cap ORAL SCH (22:49)
[2019-12-28] VITALS (7 sets, daily range): BP systolic 107–121; BP diastolic 52–79
[2019-12-28 08:04] LABS: ANION GAP 5 mmol/L (5-15); BLOOD UREA NITROGEN 21 mg/dL (7-18); CALCIUM 8.8 MG/DL (8.5-10.1); CARBON DIOXIDE 32 MMOL/L (21-32); CHLORIDE 105 MMOL/L (98-107); POTASSIUM 4.7 MMOL/L (3.5-5.1); SODIUM 142 MMOL/L (136-145)
[2019-12-28] MEDS: Aspirin Baby 81mg ORAL SCH (08:32)
[2019-12-28] MEDS: Cefepime HCl 1 GM in D5W 55 ML IV SCH ×2 (08:32→21:52)
[2019-12-28] MEDS: Depakote ER 500mg tab ORAL SCH ×2 (08:32→21:51)
[2019-12-28] MEDS: Docusate 100mg cap ORAL SCH ×2 (08:32→21:51)
[2019-12-28] MEDS: Heparin 5000 units/ml inj SUBQ SCH ×2 (08:32→21:50)
[2019-12-28] MEDS: Solu-MEDROL 40mg Inj IVP SCH (08:32)
--- NOTE | 2019-12-28 09:16 | Pulmonology Progress Note ---
Subjective ROS Limited/Unobtainable: No Respiratory: Reports: shortness of breath Allergies: Coded Allergies: No Known Allergies (Unverified , 12/23/19) Subjective care noted dc plans discussed CT noted Objective Last 24 Hour Vital Signs Date Time Temp Pulse Resp B/P (MAP) Pulse Ox O2 Delivery O2 Flow Rate FiO2 12/28/19 09:10 97.7 53 19 121/79 (93) 95 12/28/19 09:09 Nasal Cannula 3.0 12/28/19 04:00 97.5 58 19 110/78 (89) 95 12/28/19 04:00 55 12/28/19 00:00 46 12/28/19 00:00 97.5 56 17 110/61 (77) 93 12/27/19 21:00 Nasal Cannula 3.0 12/27/19 20:00 54 12/27/19 20:00 99.1 58 19 115/65 (82) 96 12/27/19 16:00 46 12/27/19 16:00 97.4 54 18 125/74 (91) 98 12/27/19 12:00 52 12/27/19 12:00 96.7 57 20 145/76 (99) 95 Intake and Output 12/27/19 12/28/19 18:59 06:59 Intake Total 360 ml 330 ml Output Total 500 ml 1200 ml Balance -140 ml -870 ml Intake Oral 360 ml 275 ml IV Total 55 ml Output Urine Total 500 ml 1200 ml Objective WDWN NAD reduced breath sounds bilaterally without rhonchi or wheeze [id number] without MRG NABS nontender no HSM no CCE nonfocal but weak Laboratory Tests 12/27/19 18:05: Troponin I 0.020 12/28/19 05:50: Troponin I 0.000, Sodium Level 142, Potassium Level 4.7, Chloride Level 105, Carbon Dioxide Level 32, Anion Gap 5, Blood Urea Nitrogen 21H, Creatinine 1.0, Estimat Glomerular Filtration Rate > 60, Glucose Level 116H, Calcium Level 8.8, Magnesium Level 2.4, Thyroid Stimulating Hormone (TSH) 3.464, Free Thyroxine 1.05 Current Medications Medications (Trade) Dose Ordered Sig/Carlito Route PRN Reason Start Time Stop Time Status Last Admin Dose Admin Acetaminophen (Tylenol) 650 mg Q4H PRN ORAL Mild Pain (Pain Scale 1-3) 12/23/19 19:00 01/22/20 18:59 Albuterol/ Ipratropium (Combivent Respimat) 1 puff Q6HR INH 12/24/19 20:00 01/23/20 19:59 12/28/19 05:28 Aspirin (ASA) 81 mg DAILY ORAL 12/27/19 09:00 02/07/20 19:59 12/28/19 08:32 Bisacodyl (Dulcolax) 10 mg DAILYPRN PRN RECTAL Constipation 12/23/19 19:00 03/22/20 18:59 12/25/19 00:03 Cefepime HCl 1 gm/ Dextrose 55 ml @ 110 mls/hr EVERY 12 HOURS IV 12/23/19 21:00 12/30/19 20:59 12/28/19 08:32 Clozapine (Clozaril) 100 mg QHS ORAL 12/23/19 21:00 12/30/19 20:59 12/27/19 22:49 Divalproex Sodium (Depakote ER) 500 mg EVERY 12 HOURS ORAL 12/23/19 21:00 02/06/20 20:59 12/28/19 08:32 Docusate Sodium (Colace) 100 mg EVERY 12 HOURS ORAL 12/23/19 21:00 01/22/20 20:59 12/28/19 08:32 Heparin Sodium (Porcine) (Heparin 5000 units/ml) 5,000 units EVERY 12 HOURS SUBQ 12/25/19 09:00 02/06/20 20:59 12/28/19 08:32 Methylprednisolone Sodium Succinate (Solu-MEDROL) 40 mg Q12HR IVP 12/25/19 21:00 03/22/20 22:59 12/28/19 08:32 Ondansetron HCl (Zofran) 4 mg Q6H PRN IVP Nausea & Vomiting 12/23/19 19:00 01/22/20 18:59 Pantoprazole (Protonix) 40 mg DAILY ORAL 12/23/19 20:00 01/22/20 19:59 12/28/19 08:32 Tamsulosin HCl (Flomax) 0.4 mg BEDTIME ORAL 12/23/19 21:00 01/22/20 20:59 12/27/19 22:49 Assessment/Plan Assessment/Plan Impression: Chronic obstructive pulmonary disease exacerbation honeycombing and pulmonary fibrosis Respiratory distress Pneumonia Hypertension Seizure disorder Previous Aortic aneurysm lung mass vs fibrosis, stable over 7 months Plan IV broad-spectrum antibiotics HHN Solumedrol reduction O2 PRN renal noted care as is outpatient PET recommended monitor for change impression, plan, and exam edited and reviewed in detail care discussed with James Fontaine MD Dec 28, 2019 09:16
--- NOTE | 2019-12-28 13:50 | Cardiac Electrophysiology PN ---
Subjective Subjective [id number] Objective Last 24 Hour Vital Signs Date Time Temp Pulse Resp B/P (MAP) Pulse Ox O2 Delivery O2 Flow Rate FiO2 12/28/19 12:09 97.5 54 19 107/66 (80) 95 12/28/19 12:00 64 12/28/19 09:10 97.7 53 19 121/79 (93) 95 12/28/19 09:09 Nasal Cannula 3.0 12/28/19 08:00 97.7 52 19 121/79 (93) 95 12/28/19 07:44 65 12/28/19 04:00 97.5 58 19 110/78 (89) 95 12/28/19 04:00 55 12/28/19 00:00 46 12/28/19 00:00 97.5 56 17 110/61 (77) 93 12/27/19 21:00 Nasal Cannula 3.0 12/27/19 20:00 54 12/27/19 20:00 99.1 58 19 115/65 (82) 96 12/27/19 16:00 46 12/27/19 16:00 97.4 54 18 125/74 (91) 98 Intake and Output 12/27/19 12/28/19 19:00 07:00 Intake Total 360 ml 330 ml Output Total 500 ml 1200 ml Balance -140 ml -870 ml Intake Oral 360 ml 275 ml IV Total 55 ml Output Urine Total 500 ml 1200 ml Laboratory Tests Test 12/27/19 18:05 12/28/19 05:50 Troponin I 0.020 ng/mL (0.000-0.056) 0.000 ng/mL (0.000-0.056) Sodium Level 142 MMOL/L (136-145) Potassium Level 4.7 MMOL/L (3.5-5.1) Chloride Level 105 MMOL/L (98-107) Carbon Dioxide Level 32 MMOL/L (21-32) Anion Gap 5 mmol/L (5-15) Blood Urea Nitrogen 21 mg/dL (7-18) H Creatinine 1.0 MG/DL (0.55-1.30) Estimat Glomerular Filtration Rate > 60 mL/min (>60) Glucose Level 116 MG/DL (74-106) H Calcium Level 8.8 MG/DL (8.5-10.1) Magnesium Level 2.4 MG/DL (1.8-2.4) Thyroid Stimulating Hormone (TSH) 3.464 uiU/mL (0.358-3.740) Free Thyroxine 1.05 NG/DL (0.76-1.46) Morgan Skelton MD Dec 28, 2019 13:50
--- NOTE | 2019-12-28 20:43 | General Progress Note ---
Assessment/Plan Problem List: (1) Bradycardia ICD Codes: R00.1 - Bradycardia, unspecified SNOMED: 42834876 (2) Lung cancer ICD Codes: C34.90 - Malignant neoplasm of unspecified part of unspecified bronchus or lung SNOMED: 003360303 (3) COPD exacerbation ICD Codes: J44.1 - Chronic obstructive pulmonary disease with (acute) exacerbation SNOMED: 451113861 (4) Suspected 2019 novel coronavirus infection ICD Codes: Z20.828 - Contact with and (suspected) exposure to other viral communicable diseases SNOMED: 954945407 Assessment/Plan: continue tele, cardiology consulting, steroids, hhn, oncology reevaluation post discharge Subjective Constitutional: Reports: weakness HEENT: Reports: no symptoms Cardiovascular: Reports: no symptoms Respiratory: Reports: cough, shortness of breath Gastrointestinal/Abdominal: Reports: no symptoms Genitourinary: Reports: no symptoms Neurologic/Psychiatric: Reports: no symptoms Endocrine: Reports: no symptoms Hematologic/Lymphatic: Reports: no symptoms Allergies: Coded Allergies: No Known Allergies (Unverified , 12/23/19) Objective Last 24 Hour Vital Signs Date Time Temp Pulse Resp B/P (MAP) Pulse Ox O2 Delivery O2 Flow Rate FiO2 12/28/19 16:09 97.2 59 19 115/52 (73) 96 12/28/19 15:16 66 12/28/19 12:09 97.5 54 19 107/66 (80) 95 12/28/19 12:00 64 12/28/19 09:10 97.7 53 19 121/79 (93) 95 12/28/19 09:09 Nasal Cannula 3.0 12/28/19 08:00 97.7 52 19 121/79 (93) 95 12/28/19 07:44 65 12/28/19 04:00 97.5 58 19 110/78 (89) 95 12/28/19 04:00 55 12/28/19 00:00 46 12/28/19 00:00 97.5 56 17 110/61 (77) 93 12/27/19 21:00 Nasal Cannula 3.0 Intake and Output 12/27/19 12/28/19 19:00 07:00 Intake Total 360 ml 330 ml Output Total 500 ml 1200 ml Balance -140 ml -870 ml Intake Oral 360 ml 275 ml IV Total 55 ml Output Urine Total 500 ml 1200 ml Laboratory Tests 12/28/19 05:50: Sodium Level 142, Potassium Level 4.7, Chloride Level 105, Carbon Dioxide Level 32, Anion Gap 5, Blood Urea Nitrogen 21H, Creatinine 1.0, Estimat Glomerular Filtration Rate > 60, Glucose Level 116H, Calcium Level 8.8, Magnesium Level 2.4 , Troponin I 0.000, Thyroid Stimulating Hormone (TSH) 3.464, Free Thyroxine 1.05 Height (Feet): 6 Height (Inches): 1.00 Weight (Pounds): 168 General Appearance: no apparent distress, alert EENT: normal ENT inspection Neck: normal alignment Cardiovascular: regular rhythm, bradycardia Respiratory/Chest: rhonchi - bilaterally Abdomen: non tender, soft Edema: no edema noted Arm (L), no edema noted Arm (R), no edema noted Leg (L), no edema noted Leg (R), no edema noted Pedal (L), no edema noted Pedal (R), no edema noted Generalized Neurologic: supervisor transferring and boxing II-XII grossly normal Robert Fernandez MD Dec 28, 2019 20:43
[2019-12-28] MEDS: Tamsulosin 0.4mg cap ORAL SCH (21:52)
--- NOTE | 2019-12-28 23:30 | Consultation ---
DATE OF CONSULTATION: 12/28/2019 CARDIOLOGY CONSULTATION CONSULTING PHYSICIAN: Morgan Skelton MD. REFERRING PHYSICIAN: Robert Fernandez MD. REASON FOR CONSULTATION: Bradycardia. HISTORY OF PRESENT ILLNESS: Patient is a 64-year-old gentleman who was under the care of Dr. Foster originally in the [facility] with underlying COPD and chronic smoker, presents to the emergency room with increasing shortness of breath. Patient was brought to [facility] for further evaluation. Patient's COVID-19 was performed. Patient was found to be bradycardic with heart rate in the 40s and a Cardiology consultation was obtained for further evaluation. REVIEW OF SYSTEMS: Negative other than what is mentioned in the history of present illness. PAST MEDICAL HISTORY: 1. COPD. 2. Schizophrenia. 3. History of lung tumor that was treated year ago. 4. Abdominal aortic aneurysm. 5. Hypertension. 6. Peripheral vascular disease. SOCIAL HISTORY: Continues to smoke a pack cigarettes a day. Lives in a [facility] and [facility], not . Does not have any children. MEDICATIONS: Per reconciliation include Toprol, Depakote, Nexium, Flomax, clonazepam, and aspirin. PHYSICAL EXAMINATION: VITAL SIGNS: Show blood pressure of 107/66, pulse is 52, respirations 18, temperature 97.5. HEAD AND NECK: Showed no JVD. LUNGS: Clear. CARDIOVASCULAR: Shows bradycardic. S1 and S2 with no gallop or murmur. ABDOMEN: Soft. EXTREMITIES: No pitting edema. LABORATORY DATA: Labs show white count of 7.2, hematocrit 12.8, hematocrit 37, platelet count 136. Sodium 142, potassium 4.7, BUN of 21, creatinine 1. Troponin negative x2. ASSESSMENT AND PLAN: 1. Bradycardia. The patient already ruled out for myocardial infarction. Echocardiogram is pending. His T4 and TSH also within normal range. Patient was on beta-ailin that has been discontinued. Heart rate gradually improving. We will watch the patient on telemetry. 2. Shortness of breath due to COPD. Patient is on prednisone. We will get an echocardiogram to evaluate for ejection fraction and wall motion abnormality. Patient also on cefepime. 3. History of seizures, on Depakote. Thank you very much for allowing me to participate in the care of this patient. Please do not hesitate to contact me for any questions regarding my evaluation. Morgan Skelton M.D. DR: LORENZO JOB#: [id number] CC:
[2019-12-29] VITALS: BP 102/68
[2019-12-29 04:00] VITALS: BP 108/68
[2019-12-29 06:41] LABS: HEMATOCRIT 42.2 % (42.0-52.0); HEMOGLOBIN 14.5 G/DL (14.2-18.0); MEAN CORPUSCULAR VOLUME 91 FL (80-99); PLATELET COUNT 211 K/UL (150-450); RED BLOOD COUNT 4.62 M/UL (4.70-6.10); WHITE BLOOD COUNT 7.3 K/UL (4.8-10.8)
--- NOTE | 2019-12-29 07:56 | Pulmonology Progress Note ---
Subjective ROS Limited/Unobtainable: No Respiratory: Reports: shortness of breath Allergies: Coded Allergies: No Known Allergies (Unverified , 12/23/19) Subjective care noted dc plans CT noted and reviewed Objective Last 24 Hour Vital Signs Date Time Temp Pulse Resp B/P (MAP) Pulse Ox O2 Delivery O2 Flow Rate FiO2 12/29/19 04:00 61 12/29/19 04:00 98.2 62 19 108/68 (81) 97 12/29/19 00:00 98.1 63 19 102/68 (79) 95 12/29/19 00:00 67 12/28/19 21:00 Room Air 12/28/19 20:00 58 12/28/19 20:00 97.9 61 19 107/63 (78) 96 12/28/19 16:09 97.2 59 19 115/52 (73) 96 12/28/19 15:16 66 12/28/19 12:09 97.5 54 19 107/66 (80) 95 12/28/19 12:00 64 12/28/19 09:10 97.7 53 19 121/79 (93) 95 12/28/19 09:09 Nasal Cannula 3.0 12/28/19 08:00 97.7 52 19 121/79 (93) 95 Intake and Output 12/28/19 12/29/19 19:00 07:00 Intake Total 360 ml 55 ml Output Total 650 ml 300 ml Balance -290 ml -245 ml Intake Oral 360 ml IV Total 55 ml Output Urine Total 650 ml 300 ml Objective WDWN NAD reduced breath sounds bilaterally without rhonchi or wheeze [id number] without MRG NABS nontender no HSM no CCE nonfocal but weak Laboratory Tests 12/29/19 05:59: White Blood Count 7.3, Red Blood Count 4.62L, Hemoglobin 14.5, Hematocrit 42.2, Mean Corpuscular Volume 91, Mean Corpuscular Hemoglobin 31.4H, Mean Corpuscular Hemoglobin Concent 34.3, Red Cell Distribution Width 13.0, Platelet Count 211, Mean Platelet Volume 5.9L, Neutrophils (%) (Auto) , Lymphocytes (%) (Auto) , Monocytes (%) (Auto) , Eosinophils (%) (Auto) , Basophils (%) (Auto) , Neutrophils % (Manual) [Pending], Lymphocytes % (Manual) [Pending], Platelet Estimate [Pending], Platelet Morphology [Pending] Current Medications Medications (Trade) Dose Ordered Sig/Carlito Route PRN Reason Start Time Stop Time Status Last Admin Dose Admin Acetaminophen (Tylenol) 650 mg Q4H PRN ORAL Mild Pain (Pain Scale 1-3) 12/23/19 19:00 01/22/20 18:59 Albuterol/ Ipratropium (Combivent Respimat) 1 puff Q6HR INH 12/24/19 20:00 01/23/20 19:59 12/29/19 06:11 Aspirin (ASA) 81 mg DAILY ORAL 12/27/19 09:00 02/07/20 19:59 12/28/19 08:32 Bisacodyl (Dulcolax) 10 mg DAILYPRN PRN RECTAL Constipation 12/23/19 19:00 03/22/20 18:59 12/25/19 00:03 Cefepime HCl 1 gm/ Dextrose 55 ml @ 110 mls/hr EVERY 12 HOURS IV 12/23/19 21:00 12/30/19 20:59 12/28/19 21:52 Clozapine (Clozaril) 100 mg QHS ORAL 12/23/19 21:00 12/30/19 20:59 12/28/19 21:51 Divalproex Sodium (Depakote ER) 500 mg EVERY 12 HOURS ORAL 12/23/19 21:00 02/06/20 20:59 12/28/19 21:51 Docusate Sodium (Colace) 100 mg EVERY 12 HOURS ORAL 12/23/19 21:00 01/22/20 20:59 12/28/19 21:51 Heparin Sodium (Porcine) (Heparin 5000 units/ml) 5,000 units EVERY 12 HOURS SUBQ 12/25/19 09:00 02/06/20 20:59 12/28/19 21:50 Ondansetron HCl (Zofran) 4 mg Q6H PRN IVP Nausea & Vomiting 12/23/19 19:00 01/22/20 18:59 Pantoprazole (Protonix) 40 mg DAILY ORAL 12/23/19 20:00 01/22/20 19:59 12/28/19 08:32 Prednisone (predniSONE) 20 mg DAILY ORAL 12/29/19 09:00 01/28/20 08:59 Tamsulosin HCl (Flomax) 0.4 mg BEDTIME ORAL 12/23/19 21:00 01/22/20 20:59 12/28/19 21:52 Assessment/Plan Assessment/Plan Impression: Chronic obstructive pulmonary disease exacerbation honeycombing and pulmonary fibrosis Respiratory distress Pneumonia Hypertension Seizure disorder Previous Aortic aneurysm lung mass vs fibrosis, stable over 7 months Plan IV broad-spectrum antibiotics- noted HHN now on prednisone O2 PRN renal noted care as is outpatient PET recommended monitor for change dc planning impression, plan, and exam edited and reviewed in detail care discussed with James Fontaine MD Dec 29, 2019 07:56
[2019-12-29 08:00] VITALS: BP 100/61
[2019-12-29] MEDS: Heparin 5000 units/ml inj SUBQ SCH (08:29)
[2019-12-29] MEDS: Depakote ER 500mg tab ORAL SCH (08:34)
[2019-12-29] MEDS: Docusate 100mg cap ORAL SCH (08:34)
[2019-12-29] MEDS: Aspirin Baby 81mg ORAL SCH (08:34)
[2019-12-29] MEDS: Cefepime HCl 1 GM in D5W 55 ML IV SCH (08:35)
[2019-12-29 12:00] VITALS: BP 98/59
[2019-12-29] MEDS ORDERED: PROAIR HFA8.5 GM INH (13:55)
[2019-12-29] MEDS ORDERED: PREDNISONE20 MG ORAL (13:55)
--- NOTE | 2019-12-29 15:10 | Cardiac Electrophysiology PN ---
Assessment/Plan Assessment/Plan 1. Bradycardia. The patient already ruled out for myocardial infarction. Echocardiogram EF 55%. His T4 and TSH also within normal range. Patient was on beta-ailin that has been discontinued. Heart rate gradually improving. 2. Shortness of breath due to COPD on prednisone. Patient also on cefepime. 3. History of seizures, on Depakote. Subjective Subjective DC to [facility] pending. No CP or SOB Objective Last 24 Hour Vital Signs Date Time Temp Pulse Resp B/P (MAP) Pulse Ox O2 Delivery O2 Flow Rate FiO2 12/29/19 12:00 97.9 77 20 98/59 (72) 98 12/29/19 11:40 64 12/29/19 09:00 Room Air 12/29/19 08:00 97.5 66 20 100/61 (74) 97 12/29/19 07:49 64 12/29/19 04:00 61 12/29/19 04:00 98.2 62 19 108/68 (81) 97 12/29/19 00:00 98.1 63 19 102/68 (79) 95 12/29/19 00:00 67 12/28/19 21:00 Room Air 12/28/19 20:00 58 12/28/19 20:00 97.9 61 19 107/63 (78) 96 12/28/19 16:09 97.2 59 19 115/52 (73) 96 12/28/19 15:16 66 Intake and Output 12/28/19 12/29/19 19:00 07:00 Intake Total 360 ml 55 ml Output Total 650 ml 300 ml Balance -290 ml -245 ml Intake Oral 360 ml IV Total 55 ml Output Urine Total 650 ml 300 ml Laboratory Tests Test 12/29/19 05:59 White Blood Count 7.3 K/UL (4.8-10.8) Red Blood Count 4.62 M/UL (4.70-6.10) L Hemoglobin 14.5 G/DL (14.2-18.0) Hematocrit 42.2 % (42.0-52.0) Mean Corpuscular Volume 91 FL (80-99) Mean Corpuscular Hemoglobin 31.4 PG (27.0-31.0) H Mean Corpuscular Hemoglobin Concent 34.3 G/DL (32.0-36.0) Red Cell Distribution Width 13.0 % (11.6-14.8) Platelet Count 211 K/UL (150-450) Mean Platelet Volume 5.9 FL (6.5-10.1) L Neutrophils (%) (Auto) % (45.0-75.0) Lymphocytes (%) (Auto) % (20.0-45.0) Monocytes (%) (Auto) % (1.0-10.0) Eosinophils (%) (Auto) % (0.0-3.0) Basophils (%) (Auto) % (0.0-2.0) Differential Total Cells Counted 100 Neutrophils % (Manual) 47 % (45-75) Lymphocytes % (Manual) 46 % (20-45) H Monocytes % (Manual) 4 % (1-10) Eosinophils % (Manual) 3 % (0-3) Basophils % (Manual) 0 % (0-2) Band Neutrophils 0 % (0-8) Platelet Estimate Adequate Platelet Morphology Normal Red Blood Cell Morphology Normal Objective HEAD AND NECK: No JVD. LUNGS: Clear. CARDIOVASCULAR: Bradycardic S1 and S2 with no gallop or murmur. ABDOMEN: Soft. EXTREMITIES: No pitting edema. Morgan Skelton MD Dec 29, 2019 15:10
[2019-12-29 16:00] VITALS: BP 101/63
[2019-12-29] MEDS ORDERED: Tubing IV Secondary IV ONE (19:14)
[2019-12-29] MEDS ORDERED: NS 275ml ONE (19:14)
--- NOTE | 2019-12-30 08:30 | Discharge Summary ---
DATE OF ADMISSION: 12/23/2019 DATE OF DISCHARGE: 12/29/2019 PERTINENT HISTORY: The patient has a history of smoking, COPD, and prior treatment for lung cancer. He presented with increasing shortness of breath. The patient has had prior treatment of lung cancer. COVID-19 test was negative after he was admitted. He has a prior history of schizophrenia, gastritis, and BPH. PERTINENT PHYSICAL FINDINGS: GENERAL: The patient is alert. HEAD, EYES, EARS, NOSE, AND THROAT: Unremarkable. LUNGS: Few rhonchi. HEART: Regular rhythm. ABDOMEN: Soft. EXTREMITIES: No edema. COURSE IN THE HOSPITAL: The patient was started on empiric antibiotics and steroids and nebulizer treatment. With the above, he felt much better. He was seen by Dr. Morrison for consultation. CT showed a lung mass, unchanged from prior, but this could be residual cancer. It was recommended he get a PET scan and see his oncologist as an outpatient. The patient had some sinus bradycardia, asymptomatic, and was observed. He had no adverse event and he was discharged to his assisted living facility in stable condition. FINAL DIAGNOSES: 1. COPD with acute exacerbation. 2. Acute bronchitis. 3. History of lung cancer. 4. Sinus bradycardia. 5. Schizophrenia. 6. History of gastritis. 7. History of BPH. DISCHARGE DISPOSITION: To his assisted living facility with a regular diet and medications per the discharge medication list. FOLLOW UP: By Dr. Fraire. Robert Fernandez M.D. DR: UZAIR JOB#: [id number] CC:
--- NOTE | 2019-12-30 11:50 | CDS Physician Query ---
Clarification is required for compliance, coding accuracy, and to reflect severity of illness for this patient Dear Date: Cash Sales Audit Clerk/ANTOLIN Name: Clinical Documentation Statement: " 64 -YOM with Hx of smoking, COPD, and prior treatment for lung cancer. He presented with increasing shortness of breath. The patient has had prior treatment of lung cancer. COVID-19 test was negative after he was admitted. He has a prior history of schizophrenia, gastritis, and BPH." [ KEYSHA Fernandez M.D. 12/29/2019] FINAL DIAGNOSES: COPD with acute exacerbation, Acute bronchitis, History of lung cancer,Sinus bradycardia,Schizophrenia. Clinical Finding show: Albumin(12/22) - 2.4 g/dl, BMI 22.2kg/m2, Calcium level 10.0 mg/dl Please select the most appropriate option: [] Protein/Calorie Malnutrition [] Mild [] Moderate [] Severe [] Hypoalbuminemia [] Cachexia [] Underweight [] Intestinal malabsorption [] Other [] Unable to determine [] Not Applicable Present on Admission: [] Yes [] No [] Clinically Undetermined Physician signature Date Please also document in your Progress Notes and/or Discharge Summary and indicate if the condition was present on admission. NICOLAS
--- NOTE | 2019-12-30 12:02 | CDS Physician Query ---
Clarification is required for compliance, coding accuracy, and to reflect severity of illness for this patient Dear Dr. Robert Vo M.D. Date: 12/30/2019 Bleaching Machine Operator/CDS Name: Alexis Florence Clinical Documentation Statement: " 64 -YOM with Hx of smoking, COPD, and prior treatment for lung cancer. He presented with increasing shortness of breath. The patient has had prior treatment of lung cancer. COVID-19 test was negative after he was admitted. He has a prior history of schizophrenia, gastritis, and BPH." [ KEYSHA Fernandez M.D. 12/29/2019] FINAL DIAGNOSES: COPD with acute exacerbation, Acute bronchitis, History of lung cancer,Sinus bradycardia,Schizophrenia. Clinical Finding show: Albumin(12/22) - 2.4 g/dl, BMI 22.2kg/m2, Calcium level 10.0 mg/dl Please select the most appropriate option: [] Protein/Calorie Malnutrition [x] Mild [] Moderate [] Severe Present on Admission: [x] Yes [] No [] Clinically Undetermined Physician signature Date Please also document in your Progress Notes and/or Discharge Summary and indicate if the condition was present on admission. MTDD
== END 2019-12-29 19:15 | disposition home or self-care (01) | DRG 190 ==
LOC: EDBD 12:23 → EMR 12:51 → 2E 12:58 → EDBEDREQ 15:04 → 2E 16:12
DX: J44.0 Chronic obstructive pulmonary disease with (acute) lower respiratory infection (principal); J18.9 Pneumonia, unspecified organism; N17.9 Acute kidney failure, unspecified; J44.1 Chronic obstructive pulmonary disease with (acute) exacerbation; E86.0 Dehydration; J20.9 Acute bronchitis, unspecified; G40.909 Epilepsy, unspecified, not intractable, without status epilepticus; F17.200 Nicotine dependence, unspecified, uncomplicated; Z85.118 Personal history of other malignant neoplasm of bronchus and lung; R00.1 Bradycardia, unspecified; I71.4 Abdominal aortic aneurysm, without rupture; I73.9 Peripheral vascular disease, unspecified; I10 Essential (primary) hypertension; N40.0 Benign prostatic hyperplasia without lower urinary tract symptoms
CPT/HCPCS: 36415; 71045; 71250; 80048; 80053; 81003; 82550; 82553; 82803; 83605; 83690; 83735; 83880; 84100; 84439; 84443; 84484; 85007; 85025; 87040; 87070; 87081; 87205; 93005; 93306; 96361; 96365; 96367; 96375; 99285; J7030